=== PATIENT | female | born 1985 | race Caucasian/White ===

== ENCOUNTER 2018-12-07 23:37 | Emergency (ER) | payer MEDICAID, OTHER ==
[~2018-12-07] VITALS: Ht 157.5 cm; Wt 86.2 kg
--- OUTSIDE RECORDS SUMMARY | 2018-12-07 23:44 | XMS REPORT | Continuity of Care Document ---
Author Organization Unknown Address Unknown Allergies There is no data. Medications There is no data. Problems There is no data. Procedures There is no data. Results Test Result Range CULTURE, URINE - 11/04/18 17:05 CULTURE, URINE, ROUTINE SEE NOTE NRG Encounters ACCT No. Visit Date/Time Discharge Status Pt. Type Provider Facility Loc./Unit Complaint [id number] 11/04/2018 15:00:00 11/04/2018 23:59:59 [facility] Outpatient RONALDO MCCORMICK [facility] [id number] 11/04/2018 15:00:00 Document Registration
--- NOTE | 2018-12-08 00:30 | ED Back Pain ---
General Stated Complaint: SPINAL PAIN Source of Information: Patient History of Present Illness Date Seen by Provider: Dec 08, 2018 Time Seen by Provider: 00:30 Initial Comments 33-year-old female presenting with complaints of thoracic and lumbar spine pain that has been progressing since August. In middle of August she had slipped on ice and falling down a few steps as she was leaving work. She had tailbone pain at that time. However her thoracic and lumbar spine pain has progressively worsened. She has tried ibuprofen for it without any significant improvement. She has intermittently had some numbness into her legs. She denies any loss of bowel or bladder control. She's had no symptoms involving her arms. She has not followed up with anyone in the clinic about the back pain. Tonight the pain was worse so she came to the emergency department. She has tried soaking in Epsom salts without any relief as well. She denies any direct trauma to her back other than the fall in August. Allergies and Home Medications Allergies Coded Allergies: phenobarbital (Verified Allergy, Unknown, 12/08/18) Uncoded Allergies: ANTIHISTAMINES (Allergy, Unknown, 12/08/18) ASA (Allergy, Unknown, 12/08/18) Patient Home Medication List Home Medication List Reviewed: Yes Review of Systems Constitutional: no symptoms reported EENTM: no symptoms reported Respiratory: no symptoms reported Cardiovascular: no symptoms reported Gastrointestinal: no symptoms reported Genitourinary: No discharge, No dysuria, No incontinence Musculoskeletal: see HPI Skin: no symptoms reported Psychiatric/Neurological: No Symptoms Reported Past Mllasrw-Dzprjg-Zfyguw Hx Past Med/Social Hx: Reviewed Nursing Past Med/Soc Hx Patient Social History Recent Foreign Travel: No Contact w/Someone Who Travel: No Past Medical History Surgeries: Yes Gallbladder Physical Exam Vital Signs Vital Signs - First Documented 12/08/18 00:21 Temp 98.7 Pulse 104 Resp 16 B/P (MAP) 104/97 (99) Pulse Ox 97 O2 Delivery Room Air Capillary Refill : Height, Weight, BMI Height: '" Weight: lbs. oz. kg; BMI Method: General Appearance: No Apparent Distress, WD/WN HEENT: Normal ENT Inspection, Pharynx Normal Neck: Full Range of Motion, Normal Inspection, Non Tender, Supple Cardiovascular: Regular Rate, Rhythm, Normal Peripheral Pulses Respiratory: Chest Non Tender, Lungs Clear, Normal Breath Sounds, No Accessory Muscle Use, No Respiratory Distress Gastrointestinal: Normal Bowel Sounds, No Pulsatile Mass, Non Tender, Soft Back: No Muscle Spasm; Vertebral Tenderness (thoracic and lumbar spine tenderness) Extremity: Normal Capillary Refill, Normal Inspection, Normal Range of Motion, Non Tender, No Calf Tenderness Neurologic/Psychiatric: Alert, Oriented x3, No Motor/Sensory Deficits, Normal Mood/Affect, network lead II-XII Norm as Tested; No Abnormal Gait Skin: Normal Color, Warm/Dry Progress/Results/Core Measures Results/Orders My Orders Orders - MARY JANE PEREZ MD Ketorolac Injection (Toradol Injection) (12/08/18 01:15) Ct Thoracic/Lumbar Spine Wo (12/08/18 01:02) Dexamethasone Injection (Decadron Inject (12/08/18 02:45) Methylprednisolone Acetate Inj (Depo-Med (12/08/18 02:45) Medications Given in ED Current Medications Medications Dose Ordered Sig/Silver Route Start Time Stop Time Status Last Admin Dose Admin Dexamethasone Sodium Phosphate 4 mg ONCE ONCE IM 12/08/18 02:45 12/08/18 02:46 DC 12/08/18 02:49 4 MG Ketorolac Tromethamine 60 mg ONCE ONCE IM 12/08/18 01:15 12/08/18 01:16 DC 12/08/18 01:10 60 MG Methylprednisolone Acetate 40 mg ONCE ONCE IM 12/08/18 02:45 12/08/18 02:46 DC 12/08/18 02:49 40 MG Vital Signs/I&O 12/08/18 12/08/18 00:21 02:53 Temp 98.7 98.7 Pulse 104 104 Resp 16 16 B/P (MAP) 104/97 (99) 104/97 (99) Pulse Ox 97 97 O2 Delivery Room Air Room Air Progress Progress Note #1: Progress Note try toradol 60 mg IM for pain and obtain CT scan of T and L spine to see if there might be an occult compression fracture. Progress Note #2: Time: 02:00 Progress Note Pt reports to the nurse that she was having tingling in her toes and felt like her legs were going numb. Will see what the CT scan shows. May add in steroid injection and encourage pt to see pcp. May ultimately need MRI or referral to billing collections specialist. Progress Note #3: Progress Note Given steroid shots and asked to check with clinic for follow up and MRI or spine referral. Diagnostic Imaging Diagonstic Imaging: CT Plain Films/CT/US/NM/MRI: other (Thoracic and Lumbar spine) Comments No acute findings Reviewed: Reviewed Night Hawk Study, Reviewed by Me Departure Impression Primary Impression: Thoracic back pain Qualified Codes: M54.6 - Pain in thoracic spine; G89.29 - Other chronic pain Additional Impressions: Lumbar back pain Radiculopathy with lower extremity symptoms Disposition: HOME, SELF-CARE Condition: Stable Departure-Patient Inst. Decision time for Depature: 02:49 Referrals: NO,LOCAL PHYSICIAN (PCP) Primary Care Physician Patient Instructions: Upper Back Pain (DC), Low Back Pain (DC) Add. Discharge Instructions: Check back with clinic as they may need to refer you to billing collections specialist or have you get an MRI for continued symptoms Work/School Note: Work Release Form Date Seen in the Emergency Department: Dec 08, 2018 Return to Work: Dec 12, 2018 Restrictions: No Restrictions MARY JANE PEREZ MD Dec 08, 2018 00:30
--- NOTE | 2018-12-08 00:44 | NUR ---
Doctor Abe in to see the patient.
[2018-12-08] MEDS ORDERED: KETOROLAC 60 MG/2 ML VIAL IM ONE (01:15)
--- NOTE | 2018-12-08 01:59 | NUR ---
Pt. reported that her toes are tingling and her legs feel heavy and numb. Doctor Abe notified.
[2018-12-08] MEDS ORDERED: DEXAMETHASONE 4 MG/ML SDV (DECADRON) IM ONE (02:45)
[2018-12-08] MEDS ORDERED: methylPREDNISolone 40 MG/ML (DEPO MEDROL) VIAL IM ONE (02:45)
[2018-12-08 02:53] VITALS: BP 104/97
--- NOTE | 2018-12-08 07:04 | Diagnostic Imaging Report ---
PROCEDURE: CT thoracic and lumbar spine without contrast. TECHNIQUE: Multiple contiguous axial images were obtained through the thoracic and lumbar spine without the use of intravenous contrast. Sagittal and coronal reformations were then performed. INDICATION: Fell back pain There are no prior studies available for comparison. The reconstructed parasagittal images show slight anterior wedging of T7. I suspect this finding is long-standing in nature. The other vertebrae heights are within normal limits. There is no fracture or acute bony abnormality appreciated. The alignment of the thoracic and lumbar vertebra is also felt to be within normal limits and intervertebral spaces are fairly well-maintained. There are bilateral pars defects at L5. There does not appear to be any significant spondylolisthesis of L5 with respect to S1 and there is no high-grade central stenosis at this level. The remainder of the thoracic and lumbar spine are also unremarkable for a high-grade central stenosis. The lungs are generally clear. There is no sign of a paraspinal mass. The gallbladder is surgically absent. IMPRESSION: 1. The slight anterior wedging of T7 is most likely long-standing in nature. There is no acute bony abnormality identified. 2. If clinical concern regarding an acute abnormality persists and if further imaging is desired, then MRI would be recommended. 3. There is no high-grade central stenosis of the thoracic or lumbar spine identified. Dictated by: Dictated on workstation # [id number]
== END 2018-12-08 02:54 | disposition home or self-care (01) ==
LOC: ER FS 23:40
DX: M54.14 Radiculopathy, thoracic region (principal); M54.16 Radiculopathy, lumbar region; Z88.8 Allergy status to other drugs, medicaments and biological substances; Z98.890 Other specified postprocedural states
CPT/HCPCS: 72128; 72131

== ENCOUNTER 2018-12-29 15:46 | Emergency (ER) | payer MEDICAID ==
[~2018-12-29] VITALS: Ht 157.5 cm; Wt 88.5 kg
--- OUTSIDE RECORDS SUMMARY | 2018-12-29 15:51 | XMS REPORT | Continuity of Care Document ---
Author Organization Unknown Address Unknown Allergies There is no data. Medications There is no data. Problems There is no data. Procedures There is no data. Results Test Result Range CULTURE, URINE - 11/04/18 17:05 CULTURE, URINE, ROUTINE SEE NOTE NRG Encounters ACCT No. Visit Date/Time Discharge Status Pt. Type Provider Facility Loc./Unit Complaint [id number] 11/04/2018 15:00:00 11/04/2018 23:59:59 [facility] Outpatient RONALDO MCCORMICK [facility] IN [facility] [id number] 11/04/2018 15:00:00 Document Registration
--- NOTE | 2018-12-29 16:12 | ED Lower Extremity ---
General Chief Complaint: Lower Extremity Stated Complaint: FOOT PAIN Nursing Triage Note: STEPPED ON WALNUT IN THE FALL. Nursing Sepsis Screen: No Definite Risk Source: patient Exam Limitations: no limitations History of Present Illness Date Seen by Provider: December 29, 2018 Time Seen by Provider: 15:56 Initial Comments 33-year-old female who presents to the emergency room with complaints of left foot pain for the past 8 months after stepping on a wall. She denies reinjury. She reports that the pain was eventually had to call and work today. Denies taking any medications for pain. She reports that she an appointment with Dr. Taylor next week. Onset: other (8 month) Pain/Injury Location: left foot Modifying Factors: Worse With Movement Allergies and Home Medications Allergies Coded Allergies: phenobarbital (Verified Allergy, Unknown, 12/08/18) Uncoded Allergies: ANTIHISTAMINES (Allergy, Unknown, 12/08/18) ASA (Allergy, Unknown, 12/08/18) Patient Home Medication List Home Medication List Reviewed: Yes Review of Systems Constitutional: see HPI; No chills, No fever Musculoskeletal: see HPI, joint pain (Left foot pain) All Other Systems Reviewed Negative Unless Noted: Yes Past Ddrwwmj-Fmhuog-Uoqroe Hx Past Med/Social Hx: Reviewed Nursing Past Med/Soc Hx Patient Social History Alcohol Use: Denies Use Recreational Drug Use: No Smoking Status: Never a Smoker Recent Foreign Travel: No Contact w/Someone Who Travel: No Recent Infectious Disease Expo: No Recent Hopitalizations: No Physical Abuse: No Sexual Abuse: No Mistreated: No Seasonal Allergies Seasonal Allergies: No Past Medical History Surgeries: Yes Gallbladder, Tubal Ligation Respiratory: No Cardiac: No Neurological: No Genitourinary: No Gastrointestinal: No Musculoskeletal: No Endocrine: No HEENT: No Cancer: No Psychosocial: No Integumentary: No Blood Disorders: No Family Medical History Reviewed Nursing Family Hx Physical Exam Vital Signs Vital Signs - First Documented 12/29/18 12/29/18 15:59 16:54 Temp 97.6 Pulse 78 Resp 18 B/P (MAP) 139/103 (115) Pulse Ox 99 O2 Delivery Room Air Capillary Refill : Less Than 3 Seconds Height, Weight, BMI Height: 5'2.00" Weight: 195lbs. oz. 88.199468eq; BMI Method:Stated General Appearance: WD/WN, no apparent distress Cardiovascular: normal peripheral pulses, regular rate, rhythm, no edema, no gallop, no JVD, no murmur Respiratory: chest non-tender, lungs clear, normal breath sounds, no respiratory distress, no accessory muscle use Feet: bilateral foot normal inspection, bilateral foot normal range of motion, bilateral foot no evidence of injury; left foot pain Neurologic/Tendon: normal sensation, normal motor functions, normal tendon functions, responds to pain, no evidence tendon injury Neurologic/Psychiatric: alert, normal mood/affect, oriented x 3 Skin: normal color, warm/dry Progress/Results/Core Measures Results/Orders My Orders Orders - LORETO METZGER Foot, Left, 3 Views (12/29/18 15:55) Vital Signs/I&O 12/29/18 12/29/18 15:59 16:54 Temp 97.6 97.6 Pulse 78 76 Resp 18 18 B/P (MAP) 139/103 (115) 139/103 (115) Pulse Ox 99 O2 Delivery Room Air Blood Pressure Mean: 115 Diagnostic Imaging Diagonstic Imaging: Xray Comments NAME: KAYLA MCCULLOUGH [facility] REC#: [id number] PT STATUS: DEP ER : 1985 PHYSICIAN: LORETO METZGER ADMIT DATE: 12/29/18/ER Signed Date of Exam: 12/29/18 FOOT, LEFT, 3 VIEWS INDICATION: Foot pain. COMPARISON: None available. TECHNIQUE: Three radiographs of the left foot dated December 29, 2018. FINDINGS: No acute fracture or dislocation. No destructive osseous process. Joint spaces are well-maintained. Lisfranc joint is well aligned. Tiny plantar calcaneal enthesophyte. No suspicious radiopaque foreign body. IMPRESSION: No acute osseous abnormality with a tiny plantar calcaneal enthesophyte present. Dictated by: Dictated on workstation # [id number] Dict: 12/29/182 Trans: 12/29/181754 Interpreted by: ARTI BERMUDEZ MD Electronically signed by: ARTI BERMUDEZ MD 12/29/181754 Departure Impression Primary Impression: Left foot pain Disposition: 01 HOME, SELF-CARE Condition: Stable/Unchanged Departure-Patient Inst. Decision time for Depature: 16:29 Referrals: RONALDO MCCORMICK MD (PCP) Primary Care Physician JOSELITO TAYLOR DPM Patient Instructions: Foot Sprain (DC) Add. Discharge Instructions: Continue to use ibuprofen and Tylenol as directed by the bottle for pain relief. Ice to the sore areas at 20 minute intervals. Keep your appointment with Dr. Taylor as scheduled. Return back to the emergency room for worsening symptoms or concerns as needed. All discharge instructions reviewed with patient and/or family. Voiced understanding. Work/School Note: Work Release Form Date Seen in the Emergency Department: December 29, 2018 Return to Work: January 02, 2019 Restrictions: No Restrictions LORETO METZGER December 29, 2018 16:12
--- NOTE | 2018-12-29 16:21 | Diagnostic Imaging Report ---
INDICATION: Foot pain. COMPARISON: None available. TECHNIQUE: Three radiographs of the left foot dated December 29, 2018. FINDINGS: No acute fracture or dislocation. No destructive osseous process. Joint spaces are well-maintained. Lisfranc joint is well aligned. Tiny plantar calcaneal enthesophyte. No suspicious radiopaque foreign body. IMPRESSION: No acute osseous abnormality with a tiny plantar calcaneal enthesophyte present. Dictated by: Dictated on workstation # [id number]
[2018-12-29 16:54] VITALS: BP 139/103
== END 2018-12-29 16:55 | disposition home or self-care (01) ==
LOC: EDUNIT# 15:46 → ER 15:48
DX: M79.672 Pain in left foot (principal); Z88.8 Allergy status to other drugs, medicaments and biological substances; Z88.6 Allergy status to analgesic agent; Z98.51 Tubal ligation status
CPT/HCPCS: 73630

== ENCOUNTER 2019-02-02 19:42 | Emergency (ER) | payer MEDICAID ==
[~2019-02-02] VITALS: Ht 157.5 cm; Wt 90.7 kg
--- OUTSIDE RECORDS SUMMARY | 2019-02-02 19:47 | XMS REPORT | Continuity of Care Document ---
Author Organization Unknown Address Unknown Allergies Active Description Code Type Severity Reaction Onset Reported/Identified Relationship to Patient Clinical Status Yes ANTIHISTAMINES ANTIHISTAMINES Unknown N/A 12/08/2018 Yes ASA ASA Unknown N/A 12/08/2018 Yes phenobarbital [id number] Drug Allergy Unknown N/A 12/08/2018 Medications There is no data. Problems Date Dx Coded Attending Type Code Diagnosis Diagnosed By 12/08/2018 MARY JANE PEREZ MD, Ot M54.14 RADICULOPATHY, THORACIC REGION 12/08/2018 MARY JANE PEREZ MD, Ot M54.16 RADICULOPATHY, LUMBAR REGION 12/08/2018 MARY JANE PEREZ MD, Ot M54.6 PAIN IN THORACIC SPINE 12/08/2018 MARY JANE PEREZ MD Ot Z88.8 ALLERGY STATUS TO OTH DRUG/MEDS/BIOL SUB 12/08/2018 MARY JANE PEREZ MD Ot Z98.890 OTHER SPECIFIED POSTPROCEDURAL STATES 12/29/2018 LORETO METZGER Ot M79.672 PAIN IN LEFT FOOT 12/29/2018 LORETO METZGER Ot Z88.6 ALLERGY STATUS TO ANALGESIC AGENT STATUS 12/29/2018 LORETO METZGER Ot Z88.8 ALLERGY STATUS TO OTH DRUG/MEDS/BIOL SUB 12/29/2018 LORETO METZGER Ot Z98.51 TUBAL LIGATION STATUS Procedures There is no data. Results Test Result Range CULTURE, URINE - 11/04/18 17:05 CULTURE, URINE, ROUTINE SEE NOTE NRG Encounters ACCT No. Visit Date/Time Discharge Status Pt. Type Provider Facility Loc./Unit Complaint [id number] 01/06/2019 09:45:00 01/06/2019 23:59:59 [facility] [id number] 11/04/2018 15:00:00 Document Registration [id number] 12/29/2018 15:48:00 12/29/2018 16:55:00 DIS Emergency LORETO METZGER [facility] ER FOOT PAIN [id number] 12/07/2018 23:40:00 12/08/2018 02:54:00 DIS Emergency CHRIS SCOTT, MARY JANE Mc [facility] ER FS SPINAL PAIN
[2019-02-02] MEDS ORDERED: HALOPERIDOL 5 MG (20:20)
[2019-02-02] MEDS ORDERED: POTA CHLORIDE (20:20)
[2019-02-02] MEDS ORDERED: VITAMIN D 50000 UNIT (20:20)
[2019-02-02 20:27] LABS: BILIRUBIN,URINE NEGATIVE (NEGATIVE); CLARITY,URINE CLOUDY; COLOR,URINE OTHER; GLUCOSE, URINE (UA) NEGATIVE (NEGATIVE); KETONES,URINE NEGATIVE (NEGATIVE); LEUKOCYTE ESTERASE ,URINE NEGATIVE (NEGATIVE); NITRITE,URINE NEGATIVE (NEGATIVE); PH,URINE 7.5 (5-9); PROTEIN,URINE NEGATIVE (NEGATIVE); RBC,URINE >100 /HPF; UROBILINOGEN,URINE 0.2 MG/DL (NORMAL)
[2019-02-02 20:28] LABS: BACTERIA,URINE NEGATIVE /HPF
--- NOTE | 2019-02-02 20:51 | ED Abdominal Pain ---
General Chief Complaint: Abdominal/GI Problems Stated Complaint: NAVEL PAIN Nursing Triage Note: pt states 2 days of umbilicus pain to palpation. pt with hx of hernia surgery, tubal, and gallbladder Sepsis Screen: No Definite Risk History of Present Illness Date Seen by Provider: Feb 02, 2019 Time Seen by Provider: 19:48 This is a 33-year-old female who complains of worsening of her chronic. Umbilical pain which she has had since being diagnosed with an umbilical hernia and having it repaired a year ago. She has not had a fever or chills. The abdominal pain is periumbilical and does not radiate. It has been constant again for over a year but worse over the last week. Patient has not noticed any modifying factors like movement or eating. No vomiting or change in bowel movements or change in urination. Patient started her expected menstrual period yesterday. No fever or chills. Allergies and Home Medications Allergies Coded Allergies: phenobarbital (Verified Allergy, Unknown, 12/08/18) Uncoded Allergies: ANTIHISTAMINES (Allergy, Unknown, 12/08/18) ASA (Allergy, Unknown, 12/08/18) Patient Home Medication List Home Medication List Reviewed: Yes Review of Systems Review of Systems Constitutional: no symptoms reported EENTM: No Symptoms Reported Respiratory: No Symptoms Reported Cardiovascular: No Symptoms Reported Gastrointestinal: See HPI Genitourinary: No Symptoms Reported Musculoskeletal: no symptoms reported Skin: no symptoms reported Psychiatric/Neurological: No Symptoms Reported Endocrine: No Symptoms Reported Hematologic/Lymphatic: No Symptoms Reported Past Glkxamp-Kpdzqj-Jvcahm Hx Patient Social History Alcohol Use: Denies Use Recreational Drug Use: No Smoking Status: Never a Smoker 2nd Hand Smoke Exposure: No Recent Foreign Travel: No Contact w/Someone Who Travel: No Recent Infectious Disease Expo: No Recent Hopitalizations: No Physical Abuse: No Sexual Abuse: No Mistreated: No Fear: No Seasonal Allergies Seasonal Allergies: No Past Medical History Surgeries: Yes Abdominal, Gallbladder, Tubal Ligation Respiratory: No Cardiac: No Neurological: Yes Seizure Disorder Genitourinary: No Gastrointestinal: No Musculoskeletal: No Endocrine: No HEENT: No Cancer: No Psychosocial: No Integumentary: No Blood Disorders: No Physical Exam Vital Signs Vital Signs - First Documented 02/02/19 19:49 Temp 97.0 Pulse 88 Resp 16 B/P (MAP) 159/92 (114) Pulse Ox 97 O2 Delivery Room Air Capillary Refill : Less Than 3 Seconds Height/Weight/BMI Height: 5'2.00" Weight: 200lbs. oz. 90.206068df; BMI Method:Stated General Appearance: no apparent distress (no visible discomfort) HEENT: normal ENT inspection Neck: supple Respiratory: normal breath sounds Cardiovascular: normal peripheral pulses, regular rate, rhythm Gastrointestinal: soft, other (there is no significant tenderness, there is no appreciable hernia sac, inspection of the umbilicus and the rest of the abdomen is unremarkable with note made of small keloids from remote laparoscopy in the right upper quadrant and no inflammatory changes about the umbilicus) Back: no CVA tenderness Neurologic/Psychiatric: alert, normal mood/affect, oriented x 3; No abnormal gait Skin: warm/dry Progress/Results/Core Measures Results/Orders Lab Results Laboratory Tests Test 02/02/19 20:10 Range/Units Urine Color OTHER H Urine Clarity CLOUDY H Urine pH 7.5 5-9 Urine Specific [place] 1.015 L 1.016-1.022 Urine Protein NEGATIVE NEGATIVE Urine Glucose (UA) NEGATIVE NEGATIVE Urine Ketones NEGATIVE NEGATIVE Urine Nitrite NEGATIVE NEGATIVE Urine Bilirubin NEGATIVE NEGATIVE Urine Urobilinogen 0.2 NORMAL MG/DL Urine Leukocyte Esterase NEGATIVE NEGATIVE Urine RBC (Auto) 3+ H NEGATIVE Urine RBC >100 H /HPF Urine WBC NONE /HPF Urine Squamous Epithelial Cells 2-5 /HPF Urine Crystals NONE /LPF Urine Bacteria NEGATIVE /HPF Urine Casts NONE /LPF Urine Mucus NEGATIVE /LPF Urine Culture Indicated NO Urine Test NEGATIVE NEGATIVE My Orders Orders - MINDA SALINAS DO Ua Culture If Indicated (02/02/19 20:08) Hcg,Qualitative Urine (02/02/19 20:08) Vital Signs/I&O 02/02/19 02/02/19 19:49 21:09 Temp 97.0 Pulse 88 92 Resp 16 16 B/P (MAP) 159/92 (114) 140/90 (107) Pulse Ox 97 98 O2 Delivery Room Air Room Air Blood Pressure Mean: 114 Progress Progress Note : Progress Note Patient has chronic periumbilical pain related to an umbilical hernia which has been repaired a year ago. Her exam is benign. I cannot appreciate a hernia sac. She does not appear to have significant tenderness on my exam. She does not have tenderness in the right lower quadrant to suggest developing appendicitis and this is been going on for a week so I would expect her to have more significant symptoms if this were appendicitis. There is no vomiting. Patient is having normal bowel movements and urination. I offered CAT scan and blood testing in the emergency department although based on what she is telling me I don't think that they're necessary on an emergency basis as long as she follows up with a primary care physician promptly for reevaluation and if she returns for any new or worsening symptoms. She prefers outpatient followup. She is agreeable with a trial of acetaminophen as needed for minor pain. I offered to personally reevaluate her in 24 hours in this emergency department if she would like. Departure Impression Primary Impression: Abdominal pain Qualified Codes: R10.33 - Periumbilical pain Disposition: 01 HOME, SELF-CARE Condition: Stable Departure-Patient Inst. Referrals: RONALDO MCCORMICK MD (PCP/Family) Primary Care Physician Patient Instructions: Acute Abdomen (Belly Pain), Adult (DC) MINDA SALINAS DO Feb 02, 2019 20:51
[2019-02-02 21:09] VITALS: BP 140/90
== END 2019-02-02 21:08 | disposition home or self-care (01) ==
LOC: EDUNIT# 19:42 → ER FS 19:43
DX: R10.33 Periumbilical pain (principal); G40.909 Epilepsy, unspecified, not intractable, without status epilepticus; Z88.6 Allergy status to analgesic agent; Z88.8 Allergy status to other drugs, medicaments and biological substances; Z98.890 Other specified postprocedural states; Z98.51 Tubal ligation status
CPT/HCPCS: 81000; 84703; 99282

== ENCOUNTER 2019-07-13 21:14 | Emergency (ER) | payer MEDICAID ==
[~2019-07-13] VITALS: Ht 157 cm; Wt 91.0 kg
[~2019-07-13 21:14] MED LIST: HALOPERIDOL 5 MG; POTA CHLORIDE; VITAMIN D 50000 UNIT
[2019-07-13] MEDS ORDERED: LACTATED RINGERS 1,000 ML IV STA (21:51)
[2019-07-13] MEDS ORDERED: ONDANSETRON 4 MG/2 ML (SDV) Z0FRAN IVP ONE (22:00)
[2019-07-13 22:05] LABS: BILIRUBIN,URINE NEGATIVE (NEGATIVE); CLARITY,URINE CLEAR; COLOR,URINE YELLOW; GLUCOSE, URINE (UA) NEGATIVE (NEGATIVE); KETONES,URINE NEGATIVE (NEGATIVE); LEUKOCYTE ESTERASE ,URINE TRACE (NEGATIVE); NITRITE,URINE NEGATIVE (NEGATIVE); PROTEIN,URINE NEGATIVE (NEGATIVE); WBC,URINE 0-2 /HPF
[2019-07-13 22:06] LABS: BACTERIA,URINE MODERATE /HPF; SQUAMOUS EPITHELIAL CELL,UR 25-50 /HPF; YEAST,URINE FEW /HPF
[2019-07-13 22:14] LABS: BASOPHILS # (AUTO) 0.1 10^3/uL (0.0-0.1); BASOPHILS % (AUTO) 1 % (0-10); EOSINOPHILS # (AUTO) 0.4 10^3/uL (0.0-0.3); EOSINOPHILS % (AUTO) 4 % (0-10); HEMATOCRIT 42 % (35-52); HEMOGLOBIN 14.2 G/DL (11.5-16.0); LYMPHOCYTES # (AUTO) 2.7 X 10^3 (1.0-4.0); LYMPHOCYTES % (AUTO) 27 % (12-44); MEAN CORPUSCULAR HEMOGLOBIN 33 PG (25-34); MEAN CORPUSCULAR HGB CONC 34 G/DL (32-36); MEAN CORPUSCULAR VOLUME 97 FL (80-99); MEAN PLATELET VOLUME 10.3 FL (7.4-10.4); MONOCYTES # (AUTO) 0.9 X 10^3 (0.0-1.0); MONOCYTES % (AUTO) 9 % (0-12); NEUTROPHILS % (AUTO) 59 % (42-75); PLATELET COUNT 361 10^3/uL (130-400); RED CELL DISTRIBUTION WIDTH 12.2 % (10.0-14.5)
[2019-07-13] MEDS ORDERED: fentaNYL INJECTION 100 MCG/2 ML AMP IVP STA (22:31)
[2019-07-13 22:36] LABS: ALKALINE PHOSPHATASE 90 U/L (40-136); BILIRUBIN,TOTAL 0.2 MG/DL (0.1-1.0); BUN/CREATININE RATIO 16; CALCIUM 9.7 MG/DL (8.5-10.1); CARBON DIOXIDE 25 MMOL/L (21-32); CHLORIDE 103 MMOL/L (98-107); CREATININE SERUM 0.67 MG/DL (0.60-1.30); GFR ESTIMATED > 60; GLUCOSE 109 MG/DL (70-105); POTASSIUM 3.8 MMOL/L (3.6-5.0); SODIUM 138 MMOL/L (135-145)
[2019-07-13 22:37] LABS: ALANINE AMINOTRANSFERASE 14 U/L (0-55); ALBUMIN 4.1 GM/DL (3.2-4.5); INR 0.9 (0.8-1.4); PROTHROMBIN TIME PATIENT 12.7 SEC (12.2-14.7); TOTAL PROTEIN 7.6 GM/DL (6.4-8.2)
[2019-07-13] MEDS ORDERED: HYOSCYAMINE 0.125 MG (LEVSIN) TAB SL ONE (22:45)
--- NOTE | 2019-07-13 23:17 | ED Abdominal Pain ---
General Chief Complaint: Abdominal/GI Problems Stated Complaint: ABD PAIN Nursing Triage Note: PT COMPLAINING OF ABD PAIN SINCE WEDNESDAY EVENING WITH DIARRHEA AND NAUSEA. Sepsis Screen: No Definite Risk Source of Information: Patient Exam Limitations: No Limitations History of Present Illness Date Seen by Provider: Jul 13, 2019 Time Seen by Provider: 21:45 Initial Comments Here with report of nausea, vomiting, diarrhea and generalized abdominal cramping for 2 days. This is persisted till tonight. She has tried ondansetron and that has not helped. She in fact threw that up. She is unable to keep water down. No reported fevers. Timing/Duration: 2-3 Days, Constant Severity/Quality: Moderate, Cramping Location: Generalized Abdomen Radiation: No Radiation Activities at Onset: None Associated Symptoms: No Back Pain, No Chest Pain, No Fever/Chills; Nausea/Vomiting; No Shortness of Air; Weakness Allergies and Home Medications Allergies Coded Allergies: phenobarbital (Verified Allergy, Unknown, 12/08/18) Uncoded Allergies: ANTIHISTAMINES (Allergy, Unknown, 12/08/18) ASA (Allergy, Unknown, 12/08/18) Patient Home Medication List Home Medication List Reviewed: Yes Review of Systems Review of Systems Constitutional: see HPI, chills; No fever EENTM: No Symptoms Reported Respiratory: No Symptoms Reported Cardiovascular: No Symptoms Reported Gastrointestinal: See HPI, Abdominal Pain, Diarrhea, Nausea, Vomiting Genitourinary: No Symptoms Reported Musculoskeletal: no symptoms reported Skin: no symptoms reported Psychiatric/Neurological: No Symptoms Reported All Other Systems Reviewed Negative Unless Noted: Yes Past Cntzxhu-Eopmae-Gudqpr Hx Past Med/Social Hx: Reviewed Nursing Past Med/Soc Hx Patient Social History Alcohol Use: Denies Use Recreational Drug Use: No 2nd Hand Smoke Exposure: No Recent Foreign Travel: No Contact w/Someone Who Travel: No Recent Infectious Disease Expo: No Recent Hopitalizations: No Physical Abuse: No Sexual Abuse: No Mistreated: No Fear: No Seasonal Allergies Seasonal Allergies: No Past Medical History Surgeries: Yes Abdominal, Gallbladder, Tubal Ligation Respiratory: No Cardiac: No Neurological: Yes Seizure Disorder Genitourinary: No Gastrointestinal: No Musculoskeletal: No Endocrine: No HEENT: No Cancer: No Psychosocial: No Integumentary: No Blood Disorders: No Family Medical History Reviewed Nursing Family Hx Physical Exam Vital Signs Vital Signs - First Documented 07/13/19 21:21 Temp 36.6 Pulse 98 Resp 20 B/P (MAP) 149/100 (116) Pulse Ox 95 O2 Delivery Room Air Capillary Refill : Less Than 3 Seconds Height/Weight/BMI Height: 5'2.00" Weight: 200lbs. oz. [id number]; 36.00 BMI Method:Stated General Appearance: WD/WN, no apparent distress Neck: full range of motion, supple Respiratory: lungs clear, normal breath sounds Cardiovascular: no murmur, tachycardia Gastrointestinal: soft, abnormal bowel sounds (hyperactive); No guarding, No rebound; tenderness (diffuse mild) Extremities: non-tender, normal inspection Back: normal inspection, no CVA tenderness, no vertebral tenderness Neurologic/Psychiatric: alert, oriented x 3 Skin: normal color, warm/dry Progress/Results/Core Measures Results/Orders Lab Results Laboratory Tests Test 07/13/19 21:41 07/13/19 22:00 Range/Units Urine Color YELLOW Urine Clarity CLEAR Urine pH 7.0 5-9 Urine Specific [place] 1.015 L 1.016-1.022 Urine Protein NEGATIVE NEGATIVE Urine Glucose (UA) NEGATIVE NEGATIVE Urine Ketones NEGATIVE NEGATIVE Urine Nitrite NEGATIVE NEGATIVE Urine Bilirubin NEGATIVE NEGATIVE Urine Urobilinogen 0.2 < = 1.0 MG/DL Urine Leukocyte Esterase TRACE H NEGATIVE Urine RBC (Auto) NEGATIVE NEGATIVE Urine RBC NONE /HPF Urine WBC 0-2 /HPF Urine Squamous Epithelial Cells 25-50 H /HPF Urine Crystals NONE /LPF Urine Bacteria MODERATE H /HPF Urine Casts NONE /LPF Urine Mucus NEGATIVE /LPF Urine Yeast FEW H /HPF Urine Culture Indicated NO White Blood Count 10.0 4.3-11.0 10^3/uL Red Blood Count 4.29 L 4.35-5.85 10^6/uL Hemoglobin 14.2 11.5-16.0 G/DL Hematocrit 42 35-52 % Mean Corpuscular Volume 97 80-99 FL Mean Corpuscular Hemoglobin 33 25-34 PG Mean Corpuscular Hemoglobin Concent 34 32-36 G/DL Red Cell Distribution Width 12.2 10.0-14.5 % Platelet Count 361 130-400 10^3/uL Mean Platelet Volume 10.3 7.4-10.4 FL Neutrophils (%) (Auto) 59 42-75 % Lymphocytes (%) (Auto) 27 12-44 % Monocytes (%) (Auto) 9 0-12 % Eosinophils (%) (Auto) 4 0-10 % Basophils (%) (Auto) 1 0-10 % Neutrophils # (Auto) 6.0 1.8-7.8 X 10^3 Lymphocytes # (Auto) 2.7 1.0-4.0 X 10^3 Monocytes # (Auto) 0.9 0.0-1.0 X 10^3 Eosinophils # (Auto) 0.4 H 0.0-0.3 10^3/uL Basophils # (Auto) 0.1 0.0-0.1 10^3/uL Prothrombin Time 12.7 12.2-14.7 SEC INR Comment 0.9 0.8-1.4 Activated Partial Thromboplast Time 27 24-35 SEC Sodium Level 138 135-145 MMOL/L Potassium Level 3.8 3.6-5.0 MMOL/L Chloride Level 103 98-107 MMOL/L Carbon Dioxide Level 25 21-32 MMOL/L Anion Gap 10 5-14 MMOL/L Blood Urea Nitrogen 11 7-18 MG/DL Creatinine 0.67 0.60-1.30 MG/DL Estimat Glomerular Filtration Rate > 60 BUN/Creatinine Ratio 16 Glucose Level 109 H 70-105 MG/DL Calcium Level 9.7 8.5-10.1 MG/DL Corrected Calcium 9.6 8.5-10.1 MG/DL Magnesium Level 2.0 1.6-2.4 MG/DL Total Bilirubin 0.2 0.1-1.0 MG/DL Aspartate Amino Transf (AST/SGOT) 15 5-34 U/L Alanine Aminotransferase (ALT/SGPT) 14 0-55 U/L Alkaline Phosphatase 90 40-136 U/L Total Protein 7.6 6.4-8.2 GM/DL Albumin 4.1 3.2-4.5 GM/DL My Orders Orders - SUDHEER BROWN MD Ua Culture If Indicated (07/13/19 21:36) Ondansetron Injection (Zofran Injectio (07/13/19 22:00) Ed Iv/Invasive Line Start (07/13/19 21:51) Cbc With Automated Diff (07/13/19 21:51) Comprehensive Metabolic Panel (07/13/19 21:51) Magnesium (07/13/19 21:51) Lactated Ringers (Lr 1000 Ml Iv Solution (07/13/19 21:51) Protime With Inr (07/13/19 22:12) Partial Thromboplastin Time (07/13/19 22:12) Hyoscyamine Sl Tablet (Levsin Sl Tablet) (07/13/19 22:45) Fentanyl Injection (Sublimaze Injection (07/13/19 22:31) Medications Given in ED Current Medications Medications Dose Ordered Sig/Silver Route Start Time Stop Time Status Last Admin Dose Admin Hyoscyamine Sulfate 0.125 mg ONCE ONCE SL 07/13/19 22:45 07/13/19 22:46 DC 07/13/19 22:43 0.125 MG Ondansetron HCl 4 mg ONCE ONCE IVP 07/13/19 22:00 07/13/19 22:01 DC 07/13/19 22:04 4 MG Vital Signs/I&O 07/13/19 21:21 Temp 36.6 Pulse 98 Resp 20 B/P (MAP) 149/100 (116) Pulse Ox 95 O2 Delivery Room Air Blood Pressure Mean: 116 POS Progress Progress Note : Progress Note Seen and evaluated. IV, labs, UA, LR 1 L bolus, Zofran 4 mg IV ordered. Monitor patient. 2245: Levsin 0.125 mg by mouth and fentanyl 50 g IV ordered. Overall improved but still has abdominal cramping so we'll try that. 2315: Overall completely resolves and feels much better. She has ambulated to the bathroom. We will continue outpatient Levsin. Discharged home with return precautions. Patient verbalize understanding of instructions and agreement with plan. Departure Impression Primary Impression: Diarrhea Qualified Codes: R19.7 - Diarrhea, unspecified Additional Impressions: Nausea and vomiting Qualified Codes: R11.2 - Nausea with vomiting, unspecified Generalized abdominal pain Disposition: HOME, SELF-CARE Condition: Improved Departure-Patient Inst. Decision time for Depature: 23:17 Referrals: RONALDO MCCORMICK MD (PCP/Family) Primary Care Physician Patient Instructions: Acute Abdomen (Belly Pain), Adult (DC), Nausea and Vomiting, Adult (DC), Diarrhea and Traveler's Diarrhea, Adult (DC) Add. Discharge Instructions: All discharge instructions reviewed with patient and/or family. Voiced understanding. Clear liquid diet for the next 24 hours and then advance as tolerated. Follow-up with your Dr. in a few days for recheck. Return for worse pain, persistent vomiting, blood in your vomit or stool, weakness, breathing problems or other concerns as needed. Take medications as directed. Scripts Hyoscyamine Sulfate (Levsin-Sl) 0.125 Mg Tab.subl 0.125 MG SL Q4H, #10 TAB 0 Refills Prov: SUDHEER BROWN MD 07/13/19 SUDHEER BROWN MD Jul 13, 2019 23:17 POS
[2019-07-13] MEDS ORDERED: HYOS0.1283 SL (23:19)
[2019-07-13] MEDS ORDERED: HYDROcodone/APAP 5 MG/325 MG (LORTAB) TAB PO ONE (23:30)
[2019-07-13 23:42] VITALS: BP 121/76
== END 2019-07-13 23:42 | disposition home or self-care (01) ==
LOC: EDUNIT# 21:14 → ER FS 21:15
DX: R19.7 Diarrhea, unspecified (principal); R11.2 Nausea with vomiting, unspecified; R10.84 Generalized abdominal pain; G40.909 Epilepsy, unspecified, not intractable, without status epilepticus; Z88.6 Allergy status to analgesic agent; Z88.8 Allergy status to other drugs, medicaments and biological substances; Z98.51 Tubal ligation status
CPT/HCPCS: 36415; 80053; 81000; 83735; 85025; 85610; 85730; 96361; 96374; 96375

== ENCOUNTER 2019-09-19 04:49 | Emergency (ER) | payer MEDICAID ==
[~2019-09-19] VITALS: Ht 157.5 cm; Wt 90.7 kg
[~2019-09-19 04:49] MED LIST changes: +HYOS0.1283 SL
[2019-09-19] MEDS ORDERED: ONDANSETRON 4 MG (ZOFRAN) ORAL DISSOLVE TAB PO STA (05:25)
[2019-09-19] MEDS ORDERED: HYOS0.1283 SL (05:30)
[2019-09-19] MEDS ORDERED: ONDA4TAB11 PO (05:30)
--- NOTE | 2019-09-19 05:30 | ED GI ---
General Chief Complaint: Abdominal/GI Problems Stated Complaint: N/V/D Nursing Triage Note: PT AMBULATE TO ROOM FS02 WITH C/O ABD PAIN, N/V/D STARTING AT APPROX 0000. Sepsis Screen: No Definite Risk Source of Information: Patient Exam Limitations: No Limitations History of Present Illness Date Seen by Provider: Sep 19, 2019 Time Seen by Provider: 05:20 Initial Comments Presents w onset of n/v/d at midnight last night. continued several times throughout the night. No known sick contacts or suspicion of food poisoning. Generalized abdominal cramping. Allergies and Home Medications Allergies Coded Allergies: phenobarbital (Verified Allergy, Unknown, 12/08/18) Uncoded Allergies: ANTIHISTAMINES (Allergy, Unknown, 12/08/18) ASA (Allergy, Unknown, 12/08/18) Home Medications Hyoscyamine Sulfate 0.125 Mg Tab.subl, 0.125 MG SL Q4H Prescribed by: SUDHEER BROWN on 07/13/19 5327 Patient Home Medication List Home Medication List Reviewed: Yes Review of Systems Review of Systems Constitutional: see HPI, malaise; No weakness Respiratory: Denies Cough, Denies Shortness of Air Cardiovascular: Denies Chest Pain, Denies Syncope Gastrointestinal: See HPI, Abdominal Pain, Diarrhea, Nausea, Vomiting Musculoskeletal: No back pain, No joint pain Skin: No change in color, No rash Past Ohckzli-Ijsvop-Gbxgkz Hx Past Med/Social Hx: Reviewed Nursing Past Med/Soc Hx Patient Social History Alcohol Use: Denies Use Recreational Drug Use: No Smoking Status: Never a Smoker 2nd Hand Smoke Exposure: No Recent Foreign Travel: No Contact w/Someone Who Travel: No Recent Infectious Disease Expo: No Recent Hopitalizations: No Physical Abuse: No Sexual Abuse: No Mistreated: No Fear: No Seasonal Allergies Seasonal Allergies: No Past Medical History Surgeries: Yes Abdominal, Gallbladder, Tubal Ligation Respiratory: No Cardiac: No Neurological: Yes Seizure Disorder Genitourinary: No Gastrointestinal: No Musculoskeletal: No Endocrine: No HEENT: No Cancer: No Psychosocial: No Integumentary: No Blood Disorders: No Physical Exam Vital Signs Vital Signs - First Documented 09/19/19 04:59 Temp 36.7 Pulse 108 Resp 17 B/P (MAP) 126/88 (101) O2 Delivery Room Air Capillary Refill : Less Than 3 Seconds Height/Weight/BMI Height: 5'2.00" Weight: 200lbs. oz. 90.397198gj; 36.00 BMI Method:Stated General Appearance: WD/WN, no apparent distress HEENT: normal ENT inspection Neck: non-tender, supple Respiratory: lungs clear, normal breath sounds Cardiovascular: regular rate, rhythm, no edema Gastrointestinal: non tender, soft; No guarding Back: normal inspection, no CVA tenderness Progress/Results/Core Measures Results/Orders My Orders Orders - ROULICESSTINECLEMENT DO Ondansetron Oral Dissolve Tab (Zofran (09/19/19 05:25) Vital Signs/I&O 09/19/19 04:59 Temp 36.7 Pulse 108 Resp 17 B/P (MAP) 126/88 (101) O2 Delivery Room Air Blood Pressure Mean: 101 Departure Impression Primary Impression: Gastroenteritis Disposition: 01 HOME, SELF-CARE Condition: Stable Departure-Patient Inst. Referrals: RONALDO MCCORMICK MD (PCP/Family) Primary Care Physician Patient Instructions: Viral Gastroenteritis, Adult (DC) Scripts Ondansetron (Ondansetron Odt) 4 Mg Tab.rapdis 4 MG PO Q6H for Nausea/Vomiting, #10 TAB Prov: ROVENSTINECLEMENT L DO 09/19/19 Hyoscyamine Sulfate (Levsin-Sl) 0.125 Mg Tab.subl 0.125 MG SL Q8H for Cramps, #10 TAB Prov: ROVENSTINECLEMENT DO 09/19/19 JEANNESTINEANTWANCLEMENT L DO Sep 19, 2019 05:30
[2019-09-19 05:36] VITALS: BP 134/76
== END 2019-09-19 05:36 | disposition home or self-care (01) ==
LOC: EDUNIT# 04:49 → ER FS 04:54
DX: K52.9 Noninfective gastroenteritis and colitis, unspecified (principal); Z88.6 Allergy status to analgesic agent; Z88.8 Allergy status to other drugs, medicaments and biological substances; Z98.51 Tubal ligation status
CPT/HCPCS: 99283

== ENCOUNTER 2019-10-08 13:29 | Emergency (ER) | payer MEDICAID ==
[~2019-10-08] VITALS: Ht 157 cm; Wt 94.0 kg
[~2019-10-08 13:29] MED LIST changes: +ONDA4TAB11 PO
--- NOTE | 2019-10-08 13:31 | ED General ---
General Stated Complaint: COUGESTION,COUGH,SORE THROAT History of Present Illness Date Seen by Provider: Oct 08, 2019 Time Seen by Provider: 13:31 Initial Comments Patient is a 34-year-old female who comes to the emergency department. She describes having sudden onset of body aches, fever, chills, cough, upper airway congestion. Her symptoms started last evening. She has known positive influenza B exposure as 2 of her children were recently tested and confirmed positive. No nausea or vomiting. Allergies and Home Medications Allergies Coded Allergies: phenobarbital (Verified Allergy, Unknown, 12/08/18) Uncoded Allergies: ANTIHISTAMINES (Allergy, Unknown, 12/08/18) ASA (Allergy, Unknown, 12/08/18) Home Medications Baloxavir Marboxil 40 Mg Tablet, 80 MG PO ONCE Prescribed by: DEANDRE KEVIN on 10/08/19 1337 Benzonatate 100 Mg Capsule, 200 MG PO TID PRN for COUGH Prescribed by: DEANDRE KEVIN on 10/08/19 1340 Hyoscyamine Sulfate 0.125 Mg Tab.subl, 0.125 MG SL Q4H Prescribed by: SUDHEER BROWN on 07/13/19 2319 Hyoscyamine Sulfate 0.125 Mg Tab.subl, 0.125 MG SL Q8H Prescribed by: CLEMENT HOPKINS on 09/19/19 0530 Ibuprofen 800 Mg Tablet, 800 MG PO Q8H PRN for PAIN-MILD Prescribed by: DEANDRE KEVIN on 10/08/19 1340 Ondansetron 4 Mg Tab.rapdis, 4 MG PO Q6H Prescribed by: CLEMENT HOPKINS on 09/19/19 0530 Oseltamivir Phosphate 75 Mg Cap, 75 MG PO BID Prescribed by: DEANDRE KEVIN on 10/08/19 1337 Patient Home Medication List Home Medication List Reviewed: Yes Review of Systems Review of Systems Constitutional: see HPI EENTM: see HPI Respiratory: see HPI Genitourinary: no symptoms reported Musculoskeletal: see HPI Skin: no symptoms reported Physical Exam Vital Signs Vital Signs - First Documented 10/08/19 13:39 Temp 36.0 Pulse 120 Resp 18 B/P (MAP) 153/95 (114) Pulse Ox 97 O2 Delivery Room Air Capillary Refill : Height, Weight, BMI Height: '" Weight: lbs. oz. kg; BMI Method: General Appearance: No Apparent Distress, WD/WN HEENT: PERRL/EOMI, TMs Normal, Normal ENT Inspection, Pharynx Normal, Other (nares congested and with clear rhinorrhea) Neck: Full Range of Motion, Supple Respiratory: Lungs Clear Cardiovascular: Regular Rate, Rhythm Extremity: Normal Capillary Refill Skin: Normal Color, Warm/Dry Progress/Results/Core Measures Suspected Sepsis SIRS Temperature: Pulse: Respiratory Rate: Blood Pressure / Mean: Results/Orders Vital Signs/I&O 10/08/19 13:39 Temp 36.0 Pulse 120 Resp 18 B/P (MAP) 153/95 (114) Pulse Ox 97 O2 Delivery Room Air Capillary Refill : Progress Note : Time: 13:46 Progress Note Patient is a 34-year-old female with known exposure to the flu who presents with flu-like symptoms. In the ER, the patient is nontoxic appearing. Her lungs are clear. Posterior oropharynx is clear. She does have some upper airway c ongestion. No increased work of breathing. No fever. Given her known exposures in the house, no testing is done. Patient is given empiric treatment. She is prescribed Xofluza. Along with some medication for symptom relief, Motrin and Tessalon Perles. Patient is also given a ancillary prescription for Tamiflu as it is unclear if her insurance will cover the Xofluza. If not covered, she will take tamiflu. Other ill family members in her house have also been prescribed tamiflu. I recommended she follow up with primary care doctor. Come back to the ER as needed. Departure Impression Primary Impression: Influenza Disposition: 01 HOME, SELF-CARE Condition: Stable Departure-Patient Inst. Scripts Benzonatate (TESSALON PERLES) 100 Mg Capsule 200 MG PO TID PRN for COUGH, #21 CAP Prov: DEANDRE KEVIN DO 10/08/19 Ibuprofen (Ibuprofen) 800 Mg Tablet 800 MG PO Q8H PRN for PAIN-MILD for 7 Days, #21 TAB Prov: DEANDRE KEVIN DO 10/08/19 Oseltamivir Phosphate (Tamiflu) 75 Mg Cap 75 MG PO BID for 5 Days, #10 CAP Prov: DEANDRE KEVIN DO 10/08/19 Baloxavir Marboxil (Xofluza) 40 Mg Tablet 80 MG PO ONCE for 1 Day, #2 TAB Prov: DEANDRE KEVIN DO 10/08/19 DEANDRE KEVIN DO Oct 08, 2019 13:31
[2019-10-08] MEDS ORDERED: OSLT75C PO (13:37)
[2019-10-08] MEDS ORDERED: BALO40TA PO (13:37)
[2019-10-08] MEDS ORDERED: BENZ100C18 PO (13:40)
[2019-10-08] MEDS ORDERED: IBUP-1780 PO (13:40)
[2019-10-08 13:44] VITALS: BP 153/95
== END 2019-10-08 13:44 | disposition home or self-care (01) ==
LOC: EDUNIT# 13:29 → ER FS 13:31
DX: J11.1 Influenza due to unidentified influenza virus with other respiratory manifestations (principal); Z88.8 Allergy status to other drugs, medicaments and biological substances; Z88.6 Allergy status to analgesic agent
CPT/HCPCS: 99282

== ENCOUNTER 2019-11-19 20:36 | Emergency (ER) | payer MEDICAID ==
[~2019-11-19] VITALS: Ht 157 cm; Wt 95.0 kg
[~2019-11-19 20:36] MED LIST changes: +BALO40TA PO; +BENZ100C18 PO; +IBUP-1780 PO; +OSLT75C PO
--- OUTSIDE RECORDS SUMMARY | 2019-11-19 20:43 | XMS REPORT | Continuity of Care Document ---
Author Organization Unknown Address Unknown Phone Unavailable Allergies Active Description Code Type Severity Reaction Onset Reported/Identified Relationship to Patient Clinical Status Yes ANTIHISTAMINES ANTIHISTAMINES Unknown N/A 12/08/2018 Yes ASA ASA Unknown N/A 12/08/2018 Yes phenobarbital [id number] Vlad g Allergy Unknown N/A 12/08/2018 Medications There is no data. Problems Date Dx Coded Attending Type Code Diagnosis Diagnosed By 12/08/2018 MARY JANE PEREZ MD, Ot M54.1 4 RADICULOPATHY, THORACIC REGION 12/08/2018 MARY JANE PEREZ MD, Ot M54.1 6 RADICULOPATHY, LUMBAR REGION 12/08/2018 MARY JANE PEREZ MD, Ot M54.6 PAIN IN THORACIC SPINE 12/08/2018 MARY JANE PEREZ MD Ot Z88.8 ALLERGY STATUS TO OTH DRUG/MEDS/BIOL SUB 12/08/2018 MARY JANE PEREZ MD Ot Z98.8 90 OTHER SPECIFIED POSTPROCEDURAL STATES 12/29/2018 LORETO METZGER Ot M79.672 PAIN IN LEFT FOOT 12/29/2018 LORETO METZGER Ot Z88.6 ALLERGY STATUS TO ANALGESIC AGENT STATUS 12/29/2018 LORETO METZGER Ot Z88.8 ALLERGY STATUS TO OTH DRUG/MEDS/BIOL SUB 12/29/2018 LORETO METZGER Ot Z98.51 TUBAL LIGATION STATUS 02/02/2019 MINDA SALINAS DO T Ot G40.909 EPILEPSY, UNSP, NOT INTRACTABLE, WITHOUT 02/02/2019 MINDA SALINAS DO T Ot R10. 33 PERIUMBILICAL PAIN 02/02/2019 MINDA SALINAS DO T Ot Z88. 6 ALLERGY STATUS TO ANALGESIC AGENT STATUS 02/02/2019 MINDA SALINAS DO T Ot Z88. 8 ALLERGY STATUS TO OTH DRUG/MEDS/BIOL SUB 02/02/2019 MINDA SALINAS DO T Ot Z98. 51 TUBAL LIGATION STATUS 02/02/2019 RITA DO, MINDA T Ot Z98.890 OTHER SPECIFIED POSTPROCEDURAL STATES 02/06/2019 RITA CHA, MINDA T Ot G40.909 EPILEPSY, UNSP, NOT INTRACTABLE, WITHOUT 02/06/2019 RITA CHA, MINDA T Ot R10. 33 PERIUMBILICAL PAIN 02/06/2019 RITA CHA, MINDA T Ot Z88. 6 ALLERGY STATUS TO ANALGESIC AGENT STATUS 02/06/2019 RITA CHA, MINDA T Ot Z88. 8 ALLERGY STATUS TO OTH DRUG/MEDS/BIOL SUB 02/06/2019 RITA CHA, MINDA T Ot Z98. 51 TUBAL LIGATION STATUS 02/06/2019 RITA CHA, MINDA T Ot Z98.890 OTHER SPECIFIED POSTPROCEDURAL STATES 07/13/2019 SUDHEER BROWN MD Ot G40.909 EPILEPSY, UNSP, NOT INTRACTABLE, WITHOUT 07/13/2019 SUDHEER BROWN MD Ot R10.84 GENERALIZED ABDOMINAL PAIN 07/13/2019 SUDHEER BROWN MD Ot R11.2 NAUSEA WITH VOMITING, UNSPECIFIED 07/13/2019 SUDHEER BROWN MD Ot R19.7 DIARRHEA, UNSPECIFIED 07/13/2019 SUDHEER BROWN MD Ot Z88.6 ALLERGY STATUS TO ANALGESIC AGENT STATUS 07/13/2019 SUDHEER BROWN MD Ot Z88.8 ALLERGY STATUS TO OTH DRUG/MEDS/BIOL SUB 07/13/2019 SUDHEER BROWN MD Ot Z98.51 TUBAL LIGATION STATUS 09/19/2019 ROVENSTINE CLEMENT CHA Ot K52.9 NONINFECTIVE GASTROENTERITIS AND COLITIS 09/19/2019 ROVENSTINE DOCLEMENT Ot R11.2 NAUSEA WITH VOMITING, UNSPECIFIED 09/19/2019 ROVENSTINE DOCLEMENT Ot Z88.6 ALLERGY STATUS TO ANALGESIC AGENT STATUS 09/19/2019 ROVENSTINE CLEMENT CHA Ot Z88.8 ALLERGY STATUS TO OTH DRUG/MEDS/BIOL SUB 10/08/2019 DEANDRE KEVIN DO Ot J11 .1 FLU DUE TO UNIDENTIFIED INFLUENZA VIRUS 10/08/2019 DEANDRE KEVIN DO Ot R05 COUGH 10/08/2019 DEANDRE KEVIN DO Ot Z88 .6 ALLERGY STATUS TO ANALGESIC AGENT STATUS 10/08/2019 DEANDRE KEVIN DO Ot Z88 .8 ALLERGY STATUS TO OTH DRUG/MEDS/BIOL SUB 10/13/2019 DEANDRE KEVIN DO Ot J11 .1 FLU DUE TO UNIDENTIFIED INFLUENZA VIRUS 10/13/2019 DEANDRE KEVIN DO Ot R05 COUGH 10/13/2019 DEANDRE KEVIN DO Ot Z88 .6 ALLERGY STATUS TO ANALGESIC AGENT STATUS 10/13/2019 DEANDRE KEVIN DO Ot Z88 .8 ALLERGY STATUS TO OTH DRUG/MEDS/BIOL SUB Procedures There is no data. Results Test Result Range CULTURE, URINE - 11/04/18 17:05 CULTURE, URINE, ROUTINE SEE NOTE NRG Urine beta human chorionic gonadotropin (hCG) measurement - 02/02/19 20:10 Urine beta human chorionic gonadotropin (hCG) measurem ent NEGATIVE NEGATIVE Complete urinalysis with reflex to cultu re - 02/02/19 20:10 Urine color determination OTHER NRG Urine clarity determination CLOUDY NR G Urine pH measurement by test strip 7.5 5-9 Specific gravity of urine by test strip 1.015 1.016-1.022 Urine protein assay by test strip, semi-quantitative NEGATIVE NEGATIVE Urine glucose detection by automated test strip NE GATIVE NEGATIVE Erythrocytes detection in urine sediment by light micr oscopy 3+ NEGATIVE Urine ketones detection by automated test strip NE GATIVE NEGATIVE Urine nitrite detection by test strip NEGATIVE NEGATIVE Urine total bilirubin detection by test strip NEGA TIVE NEGATIVE Urine urobilinogen measurement by automated test strip (mass/volume) 0.2 mg/dL NORMAL Urine leukocyte esterase detection by dipstick NEG ATIVE NEGATIVE Automated urine sediment erythrocyte cou nt by microscopy (number/high power field) > [HPF] NRG Automated urine sediment leukocyte count by microscopy (number/high power field) NONE NRG Bacteria detection in urine sediment by light microsco py NEGATIVE NRG Squamous epithelial cells detection in u rine sediment by light microscopy 2-5 NRG Crystals detection in urine sediment by light microsco py NONE NRG Casts detection in urine sediment by light microscopy NONE NRG Mucus detection in urine sediment by light microscopy NEGATIVE NRG Complete urinalysis with reflex to culture NO NRG SUREPATH PAP RFX HPV mRNA E6/E7 - 16:31 CLINICAL INFORMATION: NRG LMP: NRG PREV. PAP: NRG PREV. BX: NRG SOURCE: Cervix NRG STATEMENT OF ADEQUACY: NRG INTERPRETATION/RESULT: NRG VOLUNTEER SERVICES SPECIALIST: NRG COMMENT NRG Complete urinalysis with reflex to cultu re - 07/13/19 21:41 Urine color determination YELLOW NRG Urine clarity determination CLEAR NR G Urine pH measurement by test strip 7.0 5-9 Specific gravity of urine by test strip 1.015 1.016-1.022 Urine protein assay by test strip, semi-quantitative NEGATIVE NEGATIVE Urine glucose detection by automated test strip NE GATIVE NEGATIVE Erythrocytes detection in urine sediment by light micr oscopy NEGATIVE NEGATIVE Urine ketones detection by automated test strip NE GATIVE NEGATIVE Urine nitrite detection by test strip NEGATIVE NEGATIVE Urine total bilirubin detection by test strip NEGA TIVE NEGATIVE Urine urobilinogen measurement by automated test strip (mass/volume) 0.2 mg/dL < = 1.0 Urine leukocyte esterase detection by dipstick TRA CE NEGATIVE Automated urine sediment erythrocyte cou nt by microscopy (number/high power field) NONE NRG Automated urine sediment leukocyte count by microscopy (number/high power field) [HPF] NRG Bacteria detection in urine sediment by light microsco py MODERATE NRG Squamous epithelial cells detection in u rine sediment by light microscopy 25-50 NRG Crystals detection in urine sediment by light microsco py NONE NRG Casts detection in urine sediment by light microscopy NONE NRG Mucus detection in urine sediment by light microscopy NEGATIVE NRG Complete urinalysis with reflex to culture NO NRG Yeast detection in urine sediment by light microscopy FEW NRG Comprehensive metabolic panel - 07/13/19 22:00 Serum or plasma sodium measurement (moles/volume) 138 mmol/L 135-145 Serum or plasma potassium measurement (moles/volume) 3.8 mmol/L 3.6-5.0 Serum or plasma chloride measurement (moles/volume) 103 mmol/L 98-107 Carbon dioxide 25 mmol/L 21-32 Serum or plasma anion gap determination (moles/volume) 10 mmol/L 5-14 Serum or plasma urea nitrogen measurement (mass/volume ) 11 mg/dL 7-18 Serum or plasma creatinine measurement (mass/volume) 0.67 mg/dL 0.60-1.30 Serum or plasma urea nitrogen/creatinine mass ratio 16 NRG Serum or plasma creatinine measurement w ith calculation of estimated glomerular filtration rate > NRG Serum or plasma glucose measurement (mass/volume) 109 mg/dL 70-105 Serum or plasma calcium measurement (mass/volume) 9.7 mg/dL 8.5-10.1 Serum or plasma total bilirubin measurement (mass/volu me) 0.2 mg/dL 0.1-1.0 Serum or plasma alkaline phosphatase aj surement (enzymatic activity/volume) 90 U/L 40-136 Serum or plasma aspartate aminotransfera se measurement (enzymatic activity/volume) 15 U/L 5-34 Serum or plasma alanine aminotransferase measurement (enzymatic activity/volume) 14 U/L 0-55 Serum or plasma protein measurement (mass/volume) 7.6 g/dL 6.4-8.2 Serum or plasma albumin measurement (mass/volume) 4.1 g/dL 3.2-4.5 CALCIUM CORRECTED 9.6 mg/dL 8.5-10.1 Magnesium - 07/13/19 22:00 Magnesium 2.0 mg/dL 1.6-2.4 Complete blood count (CBC) with automate d white blood cell (WBC) differential - 07/13/19 22:00 Blood leukocytes automated count (number/volume) 10.0 10*3/uL 4.3-11.0 Blood erythrocytes automated count (number/volume) 4.29 10*6/uL 4.35-5.85 Venous blood hemoglobin measurement (mass/volume) 14.2 g/dL 11.5-16.0 Blood hematocrit (volume fraction) 42 % 35-52 Automated erythrocyte mean corpuscular volume 97 [ foz_us] 80-99 Automated erythrocyte mean corpuscular h emoglobin (mass per erythrocyte) 33 pg 25-34 Automated erythrocyte mean corpuscular h emoglobin concentration measurement (mass/volume) 34 g/dL 32-36 Automated erythrocyte distribution width ratio 12. 2 % 10.0- 14.5 Automated blood platelet count (count/volume) 361 10*3/uL 130-400 Automated blood platelet mean volume measurement 10.3 [foz_us] 7.4-10.4 Automated blood neutrophils/100 leukocytes 59 % 42-75 Automated blood lymphocytes/100 leukocytes 27 % 12-44 Blood monocytes/100 leukocytes 9 % 0-12 Automated blood eosinophils/100 leukocytes 4 % 0-10 Automated blood basophils/100 leukocytes 1 % 0-10 Blood neutrophils automated count (number/volume) 6.0 10*3 1.8-7.8 Blood lymphocytes automated count (number/volume) 2.7 10*3 1.0-4.0 Blood monocytes automated count (number/volume) 0. 9 10*3 0.0-1.0 Automated eosinophil count 0.4 10*3/uL 0 .0-0.3 Automated blood basophil count (count/volume) 0.1 10*3/uL 0.0-0.1 PT panel in platelet poor plasma by coag ulation assay - 07/13/19 22:00 Prothrombin time (PT) in platelet poor plasma by coagu lation assay 12.7 s 12.2-14.7 INR in platelet poor plasma or blood by coagulation as say 0.9 0.8-1.4 Activated partial thromboplastin time (a PTT) in platelet poor plasma bycoagulation assay - 07/13/19 22:00 Activated partial thromboplastin time (a PTT) in platelet poor plasma bycoagulation assay 27 s 24-35 CBC - 09/25/19 15:42 WHITE BLOOD CELL COUNT 10.9 Thousand/uL 3.8-10.8 RED BLOOD CELL COUNT 4.25 Million/uL 3.8 0-5.10 HEMOGLOBIN 13.9 g/dL 11.7-15.5 HEMATOCRIT 40.2 % 35.0-45.0 MCV 94.6 fL 80.0-100.0 MCH 32.7 pg 27.0-33.0 MCHC 34.6 g/dL 32.0-36.0 RDW 11.9 % 11.0-15.0 PLATELET COUNT 377 Thousand/uL 140-400 MPV 11.0 fL 7.5-12.5 ABSOLUTE NEUTROPHILS 6976 cells/uL 1500- 7800 ABSOLUTE LYMPHOCYTES 2616 cells/uL 850-3 900 ABSOLUTE MONOCYTES 818 cells/uL 200-950 ABSOLUTE EOSINOPHILS 436 cells/uL 15-500 ABSOLUTE BASOPHILS 55 cells/uL 0-200 NEUTROPHILS 64 % NRG LYMPHOCYTES 24.0 % NRG MONOCYTES 7.5 % NRG EOSINOPHILS 4.0 % NRG BASOPHILS 0.5 % NRG VITAMIN D, 25-H - 09/25/19 15:42 VITAMIN D,25-OH,TOTAL,IA 29 ng/mL 30-10 0 Encounters ACCT No. Visit Date/Time Discharge Status Pt. Type Provider Facility Loc./Unit Complaint [id number] 09/26/2019 15:45:00 09/26/2019 23:59:5 9 [facility] Outpatient RONALDO MCCORMICK [facility] [id number] 09/25/2019 15:30:00 Document Registration [id number] 05/11/2019 15:00:00 Document Registration [id number] 11/04/2018 15:00:00 Document Registration [id number] 10/08/2019 13:31:00 13:44:00 DIS Emergency KEVIN DEANDRE CHA [facility] ER FS COUGESTION,COUGH,SORE T HROAT [id number] 09/19/2019 04:54:00 05:36:00 DIS Emergency CLEMENT HOPKINS DO [facility] ER FS N/V/D [id number] 07/13/2019 21:15:00 23:42:00 DIS Emergency SUDHEER BROWN MD [facility] ER FS ABD PAIN [id number] 02/02/2019 19:43:00 21:08:00 DIS Emergency MINDA SALINAS DO [facility] ER FS NAVEL PAIN [id number] 12/29/2018 15:48:00 16:55:00 DIS Emergency LORETO METZGER [facility] ER FOOT PAIN [id number] 12/07/2018 23:40:00 02:54:00 DIS Emergency MARY JANE PEREZ MD [facility] ER FS SPINAL PAIN
--- NOTE | 2019-11-19 21:09 | ED Cough/URI ---
General Chief Complaint: Cough/Cold/Flu Symptoms Stated Complaint: COUGHH/SOB Nursing Triage Note: Pt states she started with a cough today and feels like she is having a difficult time breathing. Pt denies any fever. Sepsis Screen: No Definite Risk Source: patient Exam Limitations: no limitations History of Present Illness Date Seen by Provider: Nov 19, 2019 Time Seen by Provider: 20:52 Initial Comments 34-year-old female presents to the emergency room walking in on her own accord. Patient states that she's been having a cough since noon today. This precedes her emergency room admission by about 9 hours. She states that the cough is nonproductive and although she says that she has difficulty catching her breath has no evidence of respiratory distress and has a pulse ox of 98 on room air. I s states that she has no history of pulmonary disease. She reports that her niece has asthma. Patient is not a smoker was exposed to secondhand smoke. Patient has given informed consent for diagnostic and therapeutic services. Rapid strep screen and influenza A and B have been ordered. She says that she has some generalized discomfort but does not show any signs of distress. Patient does have a history of bipolar disorder and is currently taking haloperidol. Timing/Duration: this afternoon Severity/Quality: mild, dry cough Prior Episodes/Possible Cause: no prior episodes (and denies any exposure to people were sick) Modifying Factors: Improves With Activity (when resting the patient has stopped coughing) Associated Symptoms: cough (by history but not observed when quiet in her room), nasal congestion, sore throat Allergies and Home Medications Allergies Coded Allergies: phenobarbital (Verified Allergy, Unknown, 12/08/18) Uncoded Allergies: ANTIHISTAMINES (Allergy, Unknown, 12/08/18) ASA (Allergy, Unknown, 12/08/18) Home Medications Baloxavir Marboxil 40 Mg Tablet, 80 MG PO ONCE Prescribed by: DEANDRE KEVIN on 10/08/19 1337 Benzonatate 100 Mg Capsule, 200 MG PO TID PRN for COUGH Prescribed by: DEANDRE KEVIN on 10/08/19 1340 Hyoscyamine Sulfate 0.125 Mg Tab.subl, 0.125 MG SL Q4H Prescribed by: SUDHEER BROWN on 07/13/19 2319 Hyoscyamine Sulfate 0.125 Mg Tab.subl, 0.125 MG SL Q8H Prescribed by: CLEMENT HOPKINS on 09/19/19 0530 Ibuprofen 800 Mg Tablet, 800 MG PO Q8H PRN for PAIN-MILD Prescribed by: EDANDRE KEVIN on 10/08/19 1340 Ondansetron 4 Mg Tab.rapdis, 4 MG PO Q6H Prescribed by: CLEMENT HOPKINS on 09/19/19 0530 Oseltamivir Phosphate 75 Mg Cap, 75 MG PO BID Prescribed by: DEANDRE KEVIN on 10/08/19 1337 Patient Home Medication List Home Medication List Reviewed: Yes Review of Systems Review of Systems Constitutional: weakness (and a history of generalized discomfort and coughing) EENTM: nose congestion, throat pain (with deep coughing) Respiratory: cough, other (no wheezing no stridor no retractions noted) Cardiovascular: no symptoms reported Gastrointestinal: no symptoms reported, other (cholecystectomy scar) Genitourinary: no symptoms reported Musculoskeletal: no symptoms reported Skin: no symptoms reported Psychiatric/Neurological: Anxiety, Depressed (history of bipolar depression on haloperidol) Hematologic/Lymphatic: No Symptoms Reported Immunological/Allergic: no symptoms reported Past Ozfknwi-Daferz-Ugyhsr Hx Past Med/Social Hx: Reviewed Nursing Past Med/Soc Hx Patient Social History Alcohol Use: Denies Use Recreational Drug Use: No Smoking Status: Never a Smoker 2nd Hand Smoke Exposure: No Recent Foreign Travel: No Contact w/Someone Who Travel: No Recent Infectious Disease Expo: No Recent Hopitalizations: No Physical Abuse: No Sexual Abuse: No Seasonal Allergies Seasonal Allergies: No Past Medical History Surgeries: Yes Abdominal, Gallbladder, Tubal Ligation Respiratory: No Cardiac: No Neurological: Yes Seizure Disorder Genitourinary: No Gastrointestinal: No Musculoskeletal: No Endocrine: No HEENT: No Cancer: No Psychosocial: No Integumentary: No Blood Disorders: No Physical Exam Vital Signs - First Documented 11/19/19 20:40 Temp 36.7 Pulse 90 Resp 20 B/P (MAP) 144/94 (111) Pulse Ox 98 O2 Delivery Room Air Capillary Refill : Less Than 3 Seconds Height: 5'2.00" Weight: 200lbs. oz. 90.450915rg; 38.00 BMI Method:Stated General Appearance: WD/WN, moderate distress, obese Eyes: Bilateral Eye Normal Inspection, Bilateral Eye PERRL, Bilateral Eye EOMI HEENT: PERRL/EOMI, normal ENT inspection, TMs normal (minimal wax), pharynx normal (minimal injection), other (poor dental care) Neck: non-tender, full range of motion, supple, normal inspection Respiratory: chest non-tender, lungs clear, normal breath sounds, no respiratory distress, no accessory muscle use Cardiovascular: regular rate, rhythm, no edema, no gallop, no JVD, no murmur Gastrointestinal: normal bowel sounds, non tender, soft, no organomegaly, no pulsatile mass Extremities: normal range of motion, non-tender, normal inspection, no pedal edema, no calf tenderness Neurologic/Psychiatric: pony trimmer II-XII nml as tested, no motor/sensory deficits, alert, normal mood/affect, oriented x 3, other (patient admits to some feelings of anxiety consistent with a prior history of bipolar disorder) Skin: normal color, warm/dry Lymphatic: no adenopathy Progress/Results/Core Measures Suspected Sepsis Recent Fever Within 48 Hours: No Infection Criteria Present: None New/Unexplained Altered Menta: No Sepsis Screen: No Definite Risk SIRS Temperature: Pulse: 90 Respiratory Rate: 20 Blood Pressure 144 /94 Mean: 111 Results/Orders Lab Results Laboratory Tests Test 11/19/19 21:00 Range/Units Group A Streptococcus Screen NEGATIVE NEGATIVE Micro Results Microbiology 11/19/19 Influenza Types A,B Antigen (EULALIO) - Final, Complete My Orders Orders - BRITTANY CORONA DO Rapid Strep A Screen (11/19/19 21:03) Influenza A And B Antigens (11/19/19 21:03) Vital Signs/I&O 11/19/19 20:40 Temp 36.7 Pulse 90 Resp 20 B/P (MAP) 144/94 (111) Pulse Ox 98 O2 Delivery Room Air Capillary Refill : Less Than 3 Seconds Blood Pressure Mean: 111 Progress Note : Time: 21:13 Progress Note EKG dictation was completed. Patient has a normal sinus rhythm with a heart rate of 93 and probable left atrial enlargement but no side of ischemic disease no ST-T wave changes. Rapid strep and influenza A and B are pending ECG Initial ECG Impression Date: Nov 19, 2019 Initial ECG Impression Time: 20:44 Initial ECG Rate: 93 Initial ECG Rhythm: Normal Sinus Initial ECG Intervals: Normal Departure Impression Primary Impression: Upper respiratory infection Additional Impression: Cough Disposition: 01 HOME, SELF-CARE Condition: Improved Departure-Patient Inst. Decision time for Depature: 21:38 Referrals: RONALDO MCCORMICK MD (PCP/Family) Primary Care Physician Patient Instructions: Cough, Adult (DC), Viral Upper Respiratory Infection, Adult (DC) Add. Discharge Instructions: 34-year-old female presents with upper respiratory tract infection. Her laboratory evaluation was negative for rapid strep and negative for influenza A and B. She has no evidence of a lower tract infection has no shortness of breath no hypoxia and no fevers. Patient is aware of the COVID-19 symptoms and will rest at home with fluids and Tylenol. Patient will follow up with her primary care provider. All discharge instructions reviewed with patient and/or family. Voiced understanding. Copy Copies To 1: RONALDO MCCORMICK MD, ANTHONY H DO Nov 19, 2019 21:09
[2019-11-19 21:45] VITALS: BP 113/81
== END 2019-11-19 21:45 | disposition home or self-care (01) ==
LOC: EDUNIT# 20:36 → ER FS 20:39
DX: J06.9 Acute upper respiratory infection, unspecified (principal); G40.909 Epilepsy, unspecified, not intractable, without status epilepticus
CPT/HCPCS: 87430; 87804

== ENCOUNTER → 2019-11-28 | Outpatient (CLI) | payer MEDICAID | LOC: LAB FS 09:00 | PROVIDERS: ATTEND Family Medicine | DX: N92.6 Irregular menstruation, unspecified (principal) | CPT/HCPCS: 36415; 84702 ==

== ENCOUNTER → 2019-12-06 | Outpatient (CLI) | payer MEDICAID ==
[~2019-12-06] MED LIST changes: +CATHETER FLUSH 10 ML SYR IV PRN; +HOLD METFORMIN - RECEIVED CONTRAST 20 ML VIAL IV SCH; +IOHEXOL 350 MG/ML 100 ML (OMNIPAQUE 350) VIAL IV ONE; +NS 100 ML (IVPB) BAG IV ONE
--- NOTE | 2019-12-06 10:14 | Diagnostic Imaging Report ---
EXAM: ABDOMEN (KUB) 1 VIEW INDICATION: Abdominal pain. COMPARISON: None FINDINGS: Cholecystectomy clips. Moderate amount of stool throughout the colon and rectum. Paucity of small bowel gas. No radiopaque foreign bodies. No acute osseous findings. IMPRESSION: 1. Nonspecific bowel gas pattern. 2. Moderate amount of stool throughout the colon and rectum. Dictated by: Dictated on workstation # [id number]
[2019-12-06 10:52] LABS: WHITE BLOOD COUNT 9.3 10^3/uL (4.3-11.0)
[2019-12-06 10:53] LABS: BASOPHILS # (AUTO) 0.1 10^3/uL (0.0-0.1); BASOPHILS % (AUTO) 1 % (0-10); EOSINOPHILS # (AUTO) 0.4 10^3/uL (0.0-0.3); EOSINOPHILS % (AUTO) 4 % (0-10); HEMATOCRIT 41 % (35-52); HEMOGLOBIN 13.9 G/DL (11.5-16.0); LYMPHOCYTES # (AUTO) 2.1 X 10^3 (1.0-4.0); LYMPHOCYTES % (AUTO) 23 % (12-44); MEAN CORPUSCULAR HEMOGLOBIN 32 PG (25-34); MEAN CORPUSCULAR HGB CONC 34 G/DL (32-36); MEAN CORPUSCULAR VOLUME 96 FL (80-99); MEAN PLATELET VOLUME 10.2 FL (7.4-10.4); MONOCYTES # (AUTO) 0.8 X 10^3 (0.0-1.0); MONOCYTES % (AUTO) 9 % (0-12); NEUTROPHILS # (AUTO) 5.9 X 10^3 (1.8-7.8); NEUTROPHILS % (AUTO) 63 % (42-75); PLATELET COUNT 347 10^3/uL (130-400); RED CELL DISTRIBUTION WIDTH 12.5 % (10.0-14.5)
--- NOTE | 2019-12-06 10:57 | Diagnostic Imaging Report ---
PROCEDURE: CT abdomen and pelvis with and without contrast. TECHNIQUE: Precontrast acquisitions were acquired through the abdomen and pelvis. Multiple contiguous axial images were obtained through the abdomen and pelvis after the administration of intravenous contrast. Auto Exposure Controls were utilized during the CT exam to meet ALARA standards for radiation dose reduction. INDICATION: Chronic intermittent periumbilical pain with nausea. FINDINGS: There is an approximately 0.4 cm subpleural nodule seen in the lateral aspect of the left lower lobe. Below the diaphragm, note is made of mild diffuse fatty infiltration throughout the liver without evidence of focal hepatic, pancreatic, adrenal gland, or splenic lesion. Gallbladder is surgically absent. There is no evidence of renal lesion. There is no evidence of bowel obstruction. No free fluid or gas is seen within the peritoneum. There is no evidence of organized fluid collection. Unopacified bladder is unremarkable. The appendix has a normal appearance. No osseous abnormalities identified. There is mild protrusion of omental fat at the level of the umbilicus without bowel herniation identified. IMPRESSION: 1. 0.4 cm subpleural nodule in the lower lobe of the left lung could represent granuloma. 2. Note is made of mild anterior protrusion of omental fat at the level of the umbilicus without evidence of herniation. 3. Otherwise, no acute abnormality is seen within the abdomen or pelvis. Dictated by: Dictated on workstation # [id number]
[2019-12-06 11:04] LABS: ALANINE AMINOTRANSFERASE 17 U/L (0-55); ALKALINE PHOSPHATASE 71 U/L (40-136); BILIRUBIN,TOTAL 0.2 MG/DL (0.1-1.0); BUN/CREATININE RATIO 19; CALCIUM 9.4 MG/DL (8.5-10.1); CARBON DIOXIDE 25 MMOL/L (21-32); CHLORIDE 99 MMOL/L (98-107); CREATININE SERUM 0.74 MG/DL (0.60-1.30); GFR ESTIMATED > 60; GLUCOSE 97 MG/DL (70-105); POTASSIUM 3.8 MMOL/L (3.6-5.0); SODIUM 134 MMOL/L (135-145)
[2019-12-06 11:05] LABS: ALBUMIN 4.1 GM/DL (3.2-4.5); TOTAL PROTEIN 7.1 GM/DL (6.4-8.2)
== END ==
LOC: LAB FS 09:45
PROVIDERS: ATTEND Nurse Practitioner Family
DX: R10.33 Periumbilical pain (principal); Z87.19 Personal history of other diseases of the digestive system; R91.8 Other nonspecific abnormal finding of lung field
CPT/HCPCS: 36415; 74018; 74178; 80053; 85025

== ENCOUNTER 2020-01-01 14:55 | Emergency (ER) | payer MEDICAID ==
[~2020-01-01 14:55] MED LIST changes: -CATHETER FLUSH 10 ML SYR IV PRN; -HOLD METFORMIN - RECEIVED CONTRAST 20 ML VIAL IV SCH; -IOHEXOL 350 MG/ML 100 ML (OMNIPAQUE 350) VIAL IV ONE; -NS 100 ML (IVPB) BAG IV ONE
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
[2020-01-01 15:26] LABS: HEMATOCRIT 44 % (35-52); MEAN CORPUSCULAR HEMOGLOBIN 33 PG (25-34); MEAN CORPUSCULAR HGB CONC 34 G/DL (32-36); MEAN CORPUSCULAR VOLUME 97 FL (80-99); MEAN PLATELET VOLUME 10.3 FL (7.4-10.4); PLATELET COUNT 348 10^3/uL (130-400); RED CELL DISTRIBUTION WIDTH 12.8 % (10.0-14.5); WHITE BLOOD COUNT 9.3 10^3/uL (4.3-11.0)
[2020-01-01 15:27] LABS: BASOPHILS % (AUTO) 0 % (0-10); EOSINOPHILS # (AUTO) 0.3 10^3/uL (0.0-0.3); EOSINOPHILS % (AUTO) 4 % (0-10); LYMPHOCYTES # (AUTO) 2.3 X 10^3 (1.0-4.0); LYMPHOCYTES % (AUTO) 25 % (12-44); MONOCYTES # (AUTO) 0.9 X 10^3 (0.0-1.0); MONOCYTES % (AUTO) 10 % (0-12); NEUTROPHILS # (AUTO) 5.6 X 10^3 (1.8-7.8); NEUTROPHILS % (AUTO) 61 % (42-75)
[2020-01-01 15:31] LABS: BACTERIA,URINE FEW /HPF; BILIRUBIN,URINE NEGATIVE (NEGATIVE); CLARITY,URINE SL CLOUDY; COLOR,URINE YELLOW; GLUCOSE, URINE (UA) NEGATIVE (NEGATIVE); KETONES,URINE NEGATIVE (NEGATIVE); LEUKOCYTE ESTERASE ,URINE 1+ (NEGATIVE); NITRITE,URINE NEGATIVE (NEGATIVE); PROTEIN,URINE NEGATIVE (NEGATIVE)
[2020-01-01 15:32] LABS: SQUAMOUS EPITHELIAL CELL,UR >50 /HPF
[2020-01-01 15:35] LABS: AMPHETAMINE SCREEN, URINE NEGATIVE (NEGATIVE); BARBITURATE SCREEN URINE NEGATIVE (NEGATIVE); BENZODIAZEPINES SCREEN URINE NEGATIVE (NEGATIVE); CANNABINOID SCREEN, URINE NEGATIVE (NEGATIVE); COCAINE SCREEN URINE NEGATIVE (NEGATIVE); METHAMPHETAMINE SCREEN URINE S NEGATIVE (NEGATIVE); OPIATE SCREEN URINE NEGATIVE (NEGATIVE)
[2020-01-01 15:36] LABS: METHADONE STAT NEGATIVE (NEGATIVE); OXYCODONE STAT NEGATIVE (NEGATIVE); PROPOXYPHENE STAT NEGATIVE (NEGATIVE); TRICYCLIC ANTIDEPRESSANTS SCRE NEGATIVE (NEGATIVE)
[2020-01-01 15:46] LABS: ALANINE AMINOTRANSFERASE 18 U/L (0-55); ALKALINE PHOSPHATASE 80 U/L (40-136); BILIRUBIN,TOTAL 0.2 MG/DL (0.1-1.0); BUN/CREATININE RATIO 19; CALCIUM 10.2 MG/DL (8.5-10.1); CARBON DIOXIDE 27 MMOL/L (21-32); CHLORIDE 100 MMOL/L (98-107); CREATININE SERUM 0.63 MG/DL (0.60-1.30); GFR ESTIMATED > 60; GLUCOSE 97 MG/DL (70-105); POTASSIUM 3.9 MMOL/L (3.6-5.0); SODIUM 139 MMOL/L (135-145)
[2020-01-01 15:47] LABS: ACETAMINOPHEN < 10 UG/ML (10-30); ALBUMIN 4.4 GM/DL (3.2-4.5); SALICYLATE < 0.3 MG/DL (5.0-20.0); TOTAL PROTEIN 7.8 GM/DL (6.4-8.2)
--- NOTE | 2020-01-01 16:31 | NUR ---
1612 - Reached out to [facility] at this time to request mental health screening. Informed at this time that both screeners were currently in mental health screenings. 1615 - Reached out to [facility] at this time to request mental health screening. Informed that they were going to go ahead and reach out to [facility] as well that one of them would end up screening the patient but it would be after 5pm.
--- NOTE | 2020-01-01 16:45 | NUR ---
Contacted by Murphy Salcido at [facility]. Mental health screening initated at this time.
--- OUTSIDE RECORDS SUMMARY | 2020-01-01 19:17 | XMS REPORT | Continuity of Care Document ---
Author Organization Unknown Address Unknown Phone Unavailable Allergies Active Description Code Type Severity Reaction Onset Reported/Identified Relationship to Patient Clinical Status Yes ANTIHISTAMINES ANTIHISTAMINES Unknown N/A 12/08/2018 Yes ASA ASA Unknown N/A 12/08/2018 Yes phenobarbital [id number] Vlad g Allergy Unknown N/A 12/08/2018 Medications [...] ANALGESIC AGENT STATUS 10/08/2019 DEANDRE KEVIN DO Doron Ot Z88 .8 ALLERGY STATUS TO OTH DRUG/MEDS/BIOL SUB 10/13/2019 [facility], DEANDRE Sal Ot J11 .1 FLU DUE TO UNIDENTIFIED INFLUENZA VIRUS 10/13/2019 [facility], DEANDRE Doron Ot R05 COUGH 10/13/2019 [facility], DEANDRE Doron Ot Z88 .6 ALLERGY STATUS TO ANALGESIC AGENT STATUS 10/13/2019 [facility], DEANRDE Doron Ot Z88 .8 ALLERGY STATUS TO OTH DRUG/MEDS/BIOL SUB 11/19/2019 [facility], BRITTANY H Ot G40.909 EPILEPSY, UNSP, NOT INTRACTABLE, WITHOUT 11/19/2019 [facility], BRITTANY H Ot J06.9 ACUTE UPPER RESPIRATORY INFECTION, UNSPE 11/19/2019 [facility], BRITTANY H Ot R0 5 COUGH 11/21/2019 [facility], BRITTANY H Ot G40.909 EPILEPSY, UNSP, NOT INTRACTABLE, WITHOUT 11/21/2019 [facility], BRITTANY H Ot J06.9 ACUTE UPPER RESPIRATORY INFECTION, UNSPE 11/21/2019 [facility], BRITTANY H Ot R0 5 COUGH 11/29/2019 [facility], KIMBERLY Stauffer Ot N92 .6 IRREGULAR MENSTRUATION, UNSPECIFIED 11/29/2019 RUB[facility] SCOTT, KIMBERLY Stauffer Ot N92 .6 IRREGULAR MENSTRUATION, UNSPECIFIED 12/06/2019 RUB[facility] SCOTT, KIMBERLY Stauffer Ot N92 .6 IRREGULAR MENSTRUATION, UNSPECIFIED 12/07/2019 [facility], RADU K SEARCH SPECIALIST Ot R10.33 PERIUMBILICAL PAIN 12/07/2019 O'DELL, RADU K SEARCH SPECIALIST Ot R91 .8 OTHER NONSPECIFIC ABNORMAL FINDING OF CAMILO 12/07/2019 O'DELL, RADU K SEARCH SPECIALIST Ot Z87.19 PERSONAL HISTORY OF OTHER DISEASES OF 12/20/2019 O'DELL, RADU K SEARCH SPECIALIST Ot R10.33 PERIUMBILICAL PAIN 12/20/2019 O'DELL, RADU K SEARCH SPECIALIST Ot R91 .8 OTHER NONSPECIFIC ABNORMAL FINDING OF CAMILO 12/20/2019 O'DELL, RADU K SEARCH SPECIALIST Ot Z87.19 PERSONAL HISTORY OF OTHER DISEASES OF Procedures There is no data. Results Test [...] NRG STATEMENT OF ADEQUACY: NRG INTERPRETATION/RESULT: NRG SENIOR ANALYST PROGRAMMER: NRG COMMENT NRG Complete urinalysis with reflex [...] 15:42 VITAMIN D,25-OH,TOTAL,IA 29 ng/mL 30-10 0 Streptococcus pyogenes antigen detection - 11/19/19 21:00 Streptococcus pyogenes antigen detection NEGATIVE NEGATIVE Influenza virus A and B antigen detectio n - 11/19/19 21:00 FLU RESULT NEGATIVE FOR INFLUENZA A AND B ANTIGENS BY [facility] Bacterial throat culture - 11/19/19 21:0 0 Bacterial throat culture NBS NR UA W/ MICROSCOPY - 12/06/19 09:38 COLOR YELLOW YELLOW APPEARANCE CLEAR CLEAR SPECIFIC GRAVITY 1.019 1.001-1.035 PH 6.0 5.0-8.0 GLUCOSE NEGATIVE NEGATIVE BILIRUBIN NEGATIVE NEGATIVE KETONES NEGATIVE NEGATIVE OCCULT BLOOD 1+ NEGATIVE PROTEIN NEGATIVE NEGATIVE NITRITE NEGATIVE NEGATIVE LEUKOCYTE ESTERASE NEGATIVE NEGATIVE WBC 0-5 /HPF < OR = 5 RBC 3-10 /HPF < OR = 2 SQUAMOUS EPITHELIAL CELLS 6-10 /HPF < OR = 5 BACTERIA FEW /HPF NONE SEEN HYALINE CAST NONE SEEN /LPF NONE SEEN Complete blood count (CBC) with automate d white blood cell (WBC) differential - 12/06/19 10:30 Blood leukocytes automated count (number/volume) 9.3 10*3/uL 4.3-11.0 Blood erythrocytes automated count (number/volume) 4.30 10*6/uL 4.35-5.85 Venous blood hemoglobin measurement (mass/volume) 13.9 g/dL 11.5-16.0 Blood hematocrit (volume fraction) 41 % 35-52 Automated erythrocyte mean corpuscular volume 96 [ foz_us] 80-99 Automated erythrocyte mean corpuscular h emoglobin (mass per erythrocyte) 32 pg 25-34 Automated erythrocyte mean corpuscular h emoglobin concentration measurement (mass/volume) 34 g/dL 32-36 Automated erythrocyte distribution width ratio 12. 5 % 10.0- 14.5 Automated blood platelet count (count/volume) 347 10*3/uL 130-400 Automated blood platelet mean volume measurement 10.2 [foz_us] 7.4-10.4 Automated blood neutrophils/100 leukocytes 63 % 42-75 Automated blood lymphocytes/100 leukocytes 23 % 12-44 Blood monocytes/100 leukocytes 9 % 0-12 Automated blood eosinophils/100 leukocytes 4 % 0-10 Automated blood basophils/100 leukocytes 1 % 0-10 Blood neutrophils automated count (number/volume) 5.9 10*3 1.8-7.8 Blood lymphocytes automated count (number/volume) 2.1 10*3 1.0-4.0 Blood monocytes automated count (number/volume) 0. 8 10*3 0.0-1.0 Automated eosinophil count 0.4 10*3/uL 0 .0-0.3 Automated blood basophil count (count/volume) 0.1 10*3/uL 0.0-0.1 Comprehensive metabolic panel - 12/06/19 10:30 Serum or plasma sodium measurement (moles/volume) 134 mmol/L 135-145 Serum or plasma potassium measurement (moles/volume) 3.8 mmol/L 3.6-5.0 Serum or plasma chloride measurement (moles/volume) 99 mmol/L 98-107 Carbon dioxide 25 mmol/L 21-32 Serum or plasma anion gap determination (moles/volume) 10 mmol/L 5-14 Serum or plasma urea nitrogen measurement (mass/volume ) 14 mg/dL 7-18 Serum or plasma creatinine measurement (mass/volume) 0.74 mg/dL 0.60-1.30 Serum or plasma urea nitrogen/creatinine mass ratio 19 NRG Serum or plasma creatinine measurement w ith calculation of estimated glomerular filtration rate > NRG Serum or plasma glucose measurement (mass/volume) 97 mg/dL 70-105 Serum or plasma calcium measurement (mass/volume) 9.4 mg/dL 8.5-10.1 Serum or plasma total bilirubin measurement (mass/volu me) 0.2 mg/dL 0.1-1.0 Serum or plasma alkaline phosphatase aj surement (enzymatic activity/volume) 71 U/L 40-136 Serum or plasma aspartate aminotransfera se measurement (enzymatic activity/volume) 15 U/L 5-34 Serum or plasma alanine aminotransferase measurement (enzymatic activity/volume) 17 U/L 0-55 Serum or plasma protein measurement (mass/volume) 7.1 g/dL 6.4-8.2 Serum or plasma albumin measurement (mass/volume) 4.1 g/dL 3.2-4.5 CALCIUM CORRECTED 9.3 mg/dL 8.5-10.1 Complete blood count (CBC) with automate d white blood cell (WBC) differential - 01/01/20 15:14 Blood leukocytes automated count (number/volume) 9.3 10*3/uL 4.3-11.0 Blood erythrocytes automated count (number/volume) 4.59 10*6/uL 4.35-5.85 Venous blood hemoglobin measurement (mass/volume) 15.0 g/dL 11.5-16.0 Blood hematocrit (volume fraction) 44 % 35-52 Automated erythrocyte mean corpuscular volume 97 [ foz_us] 80-99 Automated erythrocyte mean corpuscular h emoglobin (mass per erythrocyte) 33 pg 25-34 Automated erythrocyte mean corpuscular h emoglobin concentration measurement (mass/volume) 34 g/dL 32-36 Automated erythrocyte distribution width ratio 12. 8 % 10.0- 14.5 Automated blood platelet count (count/volume) 348 10*3/uL 130-400 Automated blood platelet mean volume measurement 10.3 [foz_us] 7.4-10.4 Automated blood neutrophils/100 leukocytes 61 % 42-75 Automated blood lymphocytes/100 leukocytes 25 % 12-44 Blood monocytes/100 leukocytes 10 % 0-12 Automated blood eosinophils/100 leukocytes 4 % 0-10 Automated blood basophils/100 leukocytes 0 % 0-10 Blood neutrophils automated count (number/volume) 5.6 10*3 1.8-7.8 Blood lymphocytes automated count (number/volume) 2.3 10*3 1.0-4.0 Blood monocytes automated count (number/volume) 0. 9 10*3 0.0-1.0 Automated eosinophil count 0.3 10*3/uL 0 .0-0.3 Automated blood basophil count (count/volume) 0.0 10*3/uL 0.0-0.1 Comprehensive metabolic panel - 01/01/20 15:14 Serum or plasma sodium measurement (moles/volume) 139 mmol/L 135-145 Serum or plasma potassium measurement (moles/volume) 3.9 mmol/L 3.6-5.0 Serum or plasma chloride measurement (moles/volume) 100 mmol/L 98-107 Carbon dioxide 27 mmol/L 21-32 Serum or plasma anion gap determination (moles/volume) 12 mmol/L 5-14 Serum or plasma urea nitrogen measurement (mass/volume ) 12 mg/dL 7-18 Serum or plasma creatinine measurement (mass/volume) 0.63 mg/dL 0.60-1.30 Serum or plasma urea nitrogen/creatinine mass ratio 19 NRG Serum or plasma creatinine measurement w ith calculation of estimated glomerular filtration rate > NRG Serum or plasma glucose measurement (mass/volume) 97 mg/dL 70-105 Serum or plasma calcium measurement (mass/volume) 10.2 mg/dL 8.5-10.1 Serum or plasma total bilirubin measurement (mass/volu me) 0.2 mg/dL 0.1-1.0 Serum or plasma alkaline phosphatase aj surement (enzymatic activity/volume) 80 U/L 40-136 Serum or plasma aspartate aminotransfera se measurement (enzymatic activity/volume) 15 U/L 5-34 Serum or plasma alanine aminotransferase measurement (enzymatic activity/volume) 18 U/L 0-55 Serum or plasma protein measurement (mass/volume) 7.8 g/dL 6.4-8.2 Serum or plasma albumin measurement (mass/volume) 4.4 g/dL 3.2-4.5 CALCIUM CORRECTED 9.9 mg/dL 8.5-10.1 Serum or plasma salicylates measurement (mass/volume) - 01/01/20 15:14 Serum or plasma salicylates measurement (mass/volume) < mg/dL 5.0-20.0 Serum or plasma acetaminophen measuremen t (mass/volume) - 01/01/20 15:14 Serum or plasma acetaminophen measurement (mass/volume ) < ug/mL 10-30 Serum or plasma ethanol measurement (mas s/volume) - 01/01/20 15:14 Serum or plasma ethanol measurement (mass/volume) < mg/dL <10 Complete urinalysis with reflex to cultu re - 01/01/20 15:17 Urine color determination YELLOW NRG Urine clarity determination SL CLOUDY N RG Urine pH measurement by test strip 7.0 5-9 Specific gravity of urine by test strip 1.025 1.016-1.022 Urine protein assay by test strip, semi-quantitative NEGATIVE NEGATIVE Urine glucose detection by automated test strip NE GATIVE NEGATIVE Erythrocytes detection in urine sediment by light micr oscopy TRACE NEGATIVE Urine ketones detection by automated test strip NE GATIVE NEGATIVE Urine nitrite detection by test strip NEGATIVE NEGATIVE Urine total bilirubin detection by test strip NEGA TIVE NEGATIVE Urine urobilinogen measurement by automated test strip (mass/volume) 0.2 mg/dL < = 1.0 Urine leukocyte esterase detection by dipstick 1+ NEGATIVE Automated urine sediment erythrocyte cou nt by microscopy (number/high power field) [HPF] NRG Automated urine sediment leukocyte count by microscopy (number/high power field) [HPF] NRG Bacteria detection in urine sediment by light microsco py FEW NRG Squamous epithelial cells detection in u rine sediment by light microscopy >50 NRG Crystals detection in urine sediment by light microsco py NONE NRG Casts detection in urine sediment by light microscopy NONE NRG Mucus detection in urine sediment by light microscopy NEGATIVE NRG Complete urinalysis with reflex to culture YES NRG Urine drug screening test - 01/01/20 15: 17 Urine phencyclidine detection by screening method NEGATIVE NEGATIVE Urine benzodiazepines detection by screening method NEGATIVE NEGATIVE Urine cocaine detection NEGATIVE NEGATI VE Urine amphetamines detection by screening method N EGATIVE NEGATIVE Urine methamphetamine detection by screening method NEGATIVE NEGATIVE Urine cannabinoids detection by screening method N EGATIVE NEGATIVE Urine opiates detection by screening method NEGATI VE NEGATIVE Urine barbiturates detection NEGATIVE N EGATIVE Screening urine tricyclic antidepressants detection NEGATIVE NEGATIVE Urine methadone detection by screening method NEGA TIVE NEGATIVE Urine oxycodone detection NEGATIVE NEGA TIVE Urine propoxyphene detection NEGATIVE N EGATIVE Encounters ACCT No. Visit Date/Time Discharge Status Pt. Type Provider Facility Loc./Unit Complaint [id number] 12/27/2019 13:30:00 12/27/2019 23:59:[address] [facility] Outpatient RONALDO MCCORMICK [facility] [id number] 12/06/2019 09:20:00 Document Registration [id number] 09/25/2019 15:30:00 Document Registration [id number] 05/11/2019 15:00:00 Document Registration [id number] 11/04/2018 15:00:00 Document Registration [id number] 12/06/2019 09:45:00 23:59:59 CLS Outpatient RADU DOUGLAS APRN [facility] LAB FS PERIUMBILICAL ABD PAIN, HISTORY OF [facility] HERNIA [id number] 11/28/2019 09:00:00 23:59:59 CLS Outpatient RUBEN SCOTT, KIMBERLY Stauffer [facility] LAB FS MISSED MENSES [id number] 11/19/2019 20:39:00 21:45:00 DIS Emergency BRITTANY CORONA DO [facility] ER FS COUGHH/SOB [id number] 10/08/2019 13:31:00 13:44:00 DIS Emergency DEANDRE KEVIN DO [facility] ER FS COUGESTION,COUGH,SORE T HROAT [id number] 09/19/2019 04:54:00 05:36:00 DIS Emergency ROVENSTCLEMENT HUNT DO [facility] ER FS N/V/D [id number] 07/13/2019 21:15:00 23:42:00 DIS Emergency SUDHEER BROWN MD [facility] ER FS ABD PAIN [id number] 02/02/2019 19:43:00 21:08:00 DIS Emergency MINDA SALINAS DO [facility] ER FS NAVEL PAIN [id number] 12/29/2018 15:48:00 16:55:00 DIS Emergency DOMENICAJIEIS [facility] ER FOOT PAIN [id number] 12/07/2018 23:40:00 02:54:00 DIS Emergency CHRIS SCOTT, MARY JANE Mc [facility] ER FS SPINAL PAIN [id number] 01/01/2020 14:57:[address] Emergency GABE SCOTT, DEANDRE Peralta [facility] ER FS SUICIDAL IDEATION
[2020-01-01] MEDS ORDERED: ACETAMINOPHEN 325 MG TABLET PO ONE (19:30)
[2020-01-01 21:02] VITALS: BP 128/82
== END 2020-01-01 21:40 ==
LOC: EDUNIT# 14:55 → ER FS 14:57
DX: R45.851 Suicidal ideations (principal); F32.9 Major depressive disorder, single episode, unspecified; Z88.6 Allergy status to analgesic agent; Z88.8 Allergy status to other drugs, medicaments and biological substances
CPT/HCPCS: 36415; 80053; 80306; 80320; 80329; 81000; 84443; 85025; 87088

== ENCOUNTER → 2020-01-12 | Outpatient (CLI) | payer MEDICAID | LOC: LAB FS 15:03 | PROVIDERS: ATTEND Family Medicine | DX: N89.8 Other specified noninflammatory disorders of vagina (principal) | CPT/HCPCS: 36415; 87491; 87591 ==

== ENCOUNTER 2020-01-30 17:55 | Emergency (ER) | payer MEDICAID ==
[~2020-01-30] VITALS: Ht 157 cm; Wt 97.4 kg
--- NOTE | 2020-01-30 18:23 | ED Psychosocial ---
General Stated Complaint: OVARIAN PAIN Source: patient History of Present Illness Date Seen by Provider: Jan 30, 2020 Time Seen by Provider: 18:01 Allergies and Home Medications Allergies Coded Allergies: phenobarbital (Verified Allergy, Unknown, 12/08/18) Uncoded Allergies: ANTIHISTAMINES (Allergy, Unknown, 12/08/18) ASA (Allergy, Unknown, 12/08/18) Home Medications Baloxavir Marboxil 40 Mg Tablet, 80 MG PO ONCE Prescribed by: DEANDRE KEVIN on 10/08/19 1337 Benzonatate 100 Mg Capsule, 200 MG PO TID PRN for COUGH Prescribed by: DEANDRE KEVIN on 10/08/19 1340 Hyoscyamine Sulfate 0.125 Mg Tab.subl, 0.125 MG SL Q4H Prescribed by: SUDHEER BROWN on 07/13/19 2319 Hyoscyamine Sulfate 0.125 Mg Tab.subl, 0.125 MG SL Q8H Prescribed by: CLEEMNT HOPKINS on 09/19/19 0530 Ibuprofen 800 Mg Tablet, 800 MG PO Q8H PRN for PAIN-MILD Prescribed by: DEANDRE KEVIN on 10/08/19 1340 Ondansetron 4 Mg Tab.rapdis, 4 MG PO Q6H Prescribed by: CLEMENT HOPKINS on 09/19/19 0530 Oseltamivir Phosphate 75 Mg Cap, 75 MG PO BID Prescribed by: DEANDRE KEVIN on 10/08/19 1337 Past Mrwvuel-Oikmnb-Gwrhch Hx Patient Social History 2nd Hand Smoke Exposure: No Recent Foreign Travel: No Contact w/Someone Who Travel: No Recent Hopitalizations: No Seasonal Allergies Seasonal Allergies: No Past Medical History Surgeries: Yes Abdominal, Gallbladder, Tubal Ligation Respiratory: No Cardiac: No Neurological: Yes Seizure Disorder Genitourinary: No Gastrointestinal: No Musculoskeletal: No Endocrine: No HEENT: No Cancer: No Psychosocial: No Integumentary: No Blood Disorders: No Physical Exam Capillary Refill : Height, Weight, BMI Height: 5'2.00" Weight: 200lbs. oz. 90.128461qj; 38.00 BMI Method:Stated Departure Departure-Patient Inst. Referrals: RONALDO MCCORMICK MD (PCP/Family) Primary Care Physician MARY JANE PEREZ MD Jan 30, 2020 18:23
--- NOTE | 2020-01-30 18:34 | ED GU-Female ---
General Chief Complaint: - Urinary Stated Complaint: OVARIAN PAIN Nursing Triage Note: PT HAS BEEN TO DR. WOLF, DR. MIRANDA AND A DR IN [place] WANTING A HYSTERECTOMY FOR PAIN. ASHER DANIEL SCHEDULED HER FOR FEBRUARY 21 BUT SHE SAID THATS NOT SOON ENOUGH. PT STATES THE TYLENOL # 3 ONLY WORK FOR [address] WOLF GAVE HER[address] Nursing Sepsis Screen: No Definite Risk Source: patient History of Present Illness Date Seen by Provider: Jan 30, 2020 Time Seen by Provider: 18:34 Initial Comments 34-year-old female presenting with complaints of pelvic pain and irregular bleeding. She reports having been seen by Dr. Wolf as well as Dr. Miranda and provider in [place]. She was told that she would need a hysterectomy for her symptoms. She has an appointment scheduled February 21 but felt like she could not tolerate the pain any longer. She states that she tried calling Dr. Wolf office but did not get an answer. She came in here since the pain was so bad and she was concerned about her need for hysterectomy. She denies any fever or chills. She's had no heavy vaginal bleeding. She denies feeling dizzy or lightheaded. Allergies and Home Medications Allergies Coded Allergies: phenobarbital (Verified Allergy, Unknown, 12/08/18) Uncoded Allergies: ANTIHISTAMINES (Allergy, Unknown, 12/08/18) ASA (Allergy, Unknown, 12/08/18) Home Medications Baloxavir Marboxil 40 Mg Tablet, 80 MG PO ONCE Prescribed by: DEANDRE KEVIN on 10/08/19 1337 Benzonatate 100 Mg Capsule, 200 MG PO TID PRN for COUGH Prescribed by: DEANDRE KEVIN on 10/08/19 1340 Hyoscyamine Sulfate 0.125 Mg Tab.subl, 0.125 MG SL Q4H Prescribed by: SUDHEER BROWN on 07/13/19 2319 Hyoscyamine Sulfate 0.125 Mg Tab.subl, 0.125 MG SL Q8H Prescribed by: CLEMENT HOPKINS on 09/19/19 0530 Ibuprofen 800 Mg Tablet, 800 MG PO Q8H PRN for PAIN-MILD Prescribed by: DEANDRE KEVIN on 10/08/19 1340 Ondansetron 4 Mg Tab.rapdis, 4 MG PO Q6H Prescribed by: CLEMENT HOPKINS on 09/19/19 0530 Oseltamivir Phosphate 75 Mg Cap, 75 MG PO BID Prescribed by: DEANDRE KEVIN on 10/08/19 1337 Patient Home Medication List Home Medication List Reviewed: Yes Review of Systems Review of Systems Constitutional: No chills, No dizziness, No fever EENTM: no symptoms reported Respiratory: no symptoms reported Cardiovascular: no symptoms reported Gastrointestinal: no symptoms reported Genitourinary: see HPI Musculoskeletal: no symptoms reported Skin: no symptoms reported Psychiatric/Neurological: No Symptoms Reported Past Jcpvqux-Qpjjvh-Dnevie Hx Past Med/Social Hx: Reviewed Nursing Past Med/Soc Hx Patient Social History Alcohol Use: Denies Use Recreational Drug Use: No Smoking Status: Current Everyday Smoker Type Used: Cigarettes 2nd Hand Smoke Exposure: No Recent Foreign Travel: No Contact w/Someone Who Travel: No Recent Infectious Disease Expo: No Recent Hopitalizations: No Physical Abuse: No Sexual Abuse: No Mistreated: No Fear: No Seasonal Allergies Seasonal Allergies: No Past Medical History Surgeries: Yes Abdominal, Gallbladder, Tubal Ligation Respiratory: No Cardiac: No Neurological: Yes Seizure Disorder Female Reproductive Disorders: Menstrual Problems 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 oz. 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 as tested, no motor/sensory deficits, alert, normal mood/affect, oriented x 3 Skin: normal color, warm/dry Progress/Results/Core Measures Suspected Sepsis Recent Fever Within 48 Hours: No Infection Criteria Present: None New/Unexplained Altered Menta: No Sepsis Screen: No Definite Risk SIRS Temperature: Pulse: 106 Respiratory Rate: 18 Blood Pressure 131 /91 Mean: 104 Results/Orders My Orders Orders - MARY JANE PEREZ MD Morphine Injection (Morphine Injection (01/30/20 19:09) Rx-Hydrocodone/Apap 5-325 Mg (Rx-Vicodin (01/30/20 19:30) Rx-Hydrocodone/Apap 5-325 Mg (Rx-Vicodin (01/30/20 19:21) Medications Given in ED Current Medications Medications Dose Ordered Sig/Silver Route Start Time Stop Time Status Last Admin Dose Admin Acetaminophen/ Hydrocodone Bitart 1 ea Q6H PRN PO 01/30/20 19:30 01/30/20 19:31 DC 01/30/20 19:27 1 EA Vital Signs/I&O 01/30/20 01/30/20 18:15 19:31 Temp 36.3 Pulse 106 88 Resp 18 18 B/P (MAP) 131/91 (104) 142/90 (104) Pulse Ox 96 99 O2 Delivery Room Air Room Air Capillary Refill : Less Than 3 Seconds Blood Pressure Mean: 104 Progress Note : Progress Note Discussed with Dr. Wolf and give the patient pain shot here and send with a few hydrocodone for overnight. He stated that he is very familiar with the patient and will see her tomorrow, Wednesday, January 30, in his clinic. Departure Impression Primary Impression: Chronic pelvic pain in female Additional Impression: Dysfunctional uterine bleeding Disposition: HOME, SELF-CARE Condition: Stable Departure-Patient Inst. Decision time for Depature: 19:22 Referrals: RONALDO MCCORMICK MD (PCP/Family) Primary Care Physician ANICETO WOLF DO Patient Instructions: Chronic Pelvic Pain (DC), Absent or Irregular Periods Add. Discharge Instructions: Follow up with Dr. Wolf in clinic tomorrow. Call after 8 am to see when he wants you to come see him. All discharge instructions reviewed with patient and/or family. Voiced understanding. MARY JANE PEREZ MD Jan 30, 2020 18:34
[2020-01-30] MEDS ORDERED: morphine INJ 10 MG/ML 1ML (SYR OR VIAL) IM STA (19:09)
[2020-01-30] MEDS ORDERED: RX-HYDROCODONE/APAP 5/325 MG #4 TAB PK PO ONE (19:21)
[2020-01-30] MEDS ORDERED: RX-HYDROCODONE/APAP 5/325 MG #4 TAB PK PO PRN (19:30)
[2020-01-30 19:31] VITALS: BP 142/90
--- OUTSIDE RECORDS SUMMARY | 2020-01-30 20:56 | XMS REPORT | Continuity of Care Document ---
Author Organization Unknown Address Unknown Phone Unavailable Allergies Active Description Code Type Severity Reaction Onset Reported/Identified Relationship to Patient Clinical Status Yes ANTIHISTAMINES ANTIHISTAMINES Unknown N/A 12/08/2018 Yes ASA ASA Unknown N/A 12/08/2018 Yes phenobarbital [id number] Vlad g Allergy Unknown N/A 12/08/2018 Yes ASPIRIN 73732 DRUG INGREDI N/A Other 01/02/2020 01/02/2020 Yes DIPHENHYDRAMINE 20535 DRUG INGRED I N/A Other 01/02/2020 01/02/2020 Yes PHENOBARBITAL 20003 DRUG INGREDI N/A Other 01/02/2020 01/02/2020 Medications Medication Packaging Start Date St op Date Route Dosage Sig melatonin tablet 5 mg 01/02/2020 Oral 5 BEDT JESUS PRN OLANZapine (ZYPREXA) tablet 5 mg 01/02/2020 Oral 5 EVERY 2 HOURS PRN hydrOXYzine (ATARAX) tablet 50 mg 01/02/2020 Oral 50 EVERY 6 HOURS PRN magnesium hydroxide (MILK OF MAGNESIA) 400 MG/5ML suspension 30 mL 01/02/2020 Oral 30 DAILY PRN alum T mag hydroxide-simethi cone (MYLANTA) 200-200-20 MG/5ML liquid 30 mL 01/02/2020 O ral 30 EVERY 6 HOURS CO N acetaminophen (TYLENOL) tablet 650 mg 01/02/2020 Oral 650 EVERY 6 HOURS PRN nicotine polacrilex (NICORETTE) gum 2 mg 01/02/2020 Oral 2 EVERY 1 HOUR PRN nicotine polacrilex (COMMIT) lozenge 2 mg 01/02/2020 Oral 2 EVERY 1 HOUR PRN haloperidol (HALDOL) tablet 5 mg 01/02/2020 Oral 5 BEDTIME potassium chloride (KLOR-CON) CR tablet 10 mEq 01/02/2020 Oral 10 DAILY WITH BREAKFAST nicotine (NICODERM CQ) 14 MG/24HR 1 patch 01/02/2020 Transdermal 1 DAILY citalopram (CELEXA) tablet 20 mg 01/02/2020 Oral 20 DAILY fosfomycin (MONUROL) packet 3 g 01/02/2020 Oral 3 ONCE cetirizine (ZYRTEC) tablet 10 mg 01/02/2020 Oral 10 DAILY escitalopram (LEXAPRO) tablet 10 mg 01/02/2020 Oral 10 DAILY ondansetron (ZOFRAN-ODT) dis integrating tablet 4 mg 01/02/2020 Oral 4 EVERY 6 HOURS PRN famotidine (PEPCID) tablet 20 mg 01/02/2020 Oral 20 2 TIMES DAILY loperamide (IMODIUM) capsule 2 mg 01/02/2020 Oral 2 4 TIMES DAILY PRN pneumococcal poly 23 vaccine (PNEUMOVAX) injection 0.5 mL 01/03/2020 Intramuscular 0.5 Prior to discharge ergocalciferol (VITAMIN D) capsule 50,000 Units 01/07/2020 Oral 63311 WEEKLY Problems Date Dx Coded Attending Type Code Diagnosis Diagnosed By 12/08/2018 MARY JANE PEREZ MD, Ot M54.1 4 RADICULOPATHY, THORACIC REGION 12/08/2018 MARY JANE PEREZ MD, Ot M54.1 6 RADICULOPATHY, LUMBAR REGION 12/08/2018 MARY JANE PEREZ MD, Ot M54.6 PAIN IN THORACIC SPINE 12/08/2018 MARY JANE PEREZ MD, Ot Z88.8 ALLERGY STATUS TO OTH DRUG/MEDS/BIOL SUB 12/08/2018 MARY JANE PEREZ MD, Ot Z98.8 90 OTHER SPECIFIED POSTPROCEDURAL STATES 12/29/2018 LORETO METZGER Ot M79.672 PAIN IN LEFT FOOT 12/29/2018 LORETO METZGER Ot Z88.6 ALLERGY STATUS TO ANALGESIC AGENT STATUS 12/29/2018 LORETO METZGER Ot Z88.8 ALLERGY STATUS TO OTH DRUG/MEDS/BIOL SUB 12/29/2018 LORETO METZGER Ot Z98.51 TUBAL LIGATION STATUS 02/02/2019 MINDA SALINAS DO Ot G40.909 EPILEPSY, UNSP, NOT INTRACTABLE, WITHOUT 02/02/2019 MINDA SALINAS DO Ot R10. 33 PERIUMBILICAL PAIN 02/02/2019 MINDA SALINAS DO Ot Z88. 6 ALLERGY STATUS TO ANALGESIC AGENT STATUS 02/02/2019 MINDA SALINAS DO Ot Z88. 8 ALLERGY STATUS TO OTH DRUG/MEDS/BIOL SUB 02/02/2019 RITA CHA, MINDA T Ot Z98. 51 TUBAL LIGATION STATUS 02/02/2019 RITA CHA, MINDA T Ot Z98.890 OTHER [...] Ot Z98.51 TUBAL LIGATION STATUS 09/19/2019 ROVENSTINE DOCLEMENT Ot K52.9 NONINFECTIVE GASTROENTERITIS AND COLITIS 09/19/2019 ROVENSTINE DOCLEMENT Ot R11.2 NAUSEA WITH VOMITING, UNSPECIFIED 09/19/2019 ROVENSTINE CLEMENT CHA Ot Z88.6 ALLERGY STATUS TO ANALGESIC AGENT STATUS 09/19/2019 ROVENSTINE DOCLEMENT Ot Z88.8 ALLERGY STATUS TO OTH DRUG/MEDS/BIOL SUB 10/08/2019 DEANDRE KEVIN DO Ot J11 .1 FLU DUE TO UNIDENTIFIED INFLUENZA VIRUS 10/08/2019 DEANDRE KEVIN DO Ot R05 COUGH 10/08/2019 [facility], DEANDRE L Ot Z88 .6 ALLERGY STATUS TO ANALGESIC AGENT STATUS 10/08/2019 [facility], DEANDRE L Ot Z88 .8 ALLERGY STATUS TO OTH DRUG/MEDS/BIOL SUB 10/13/2019 [facility], DEANDRE L Ot J11 .1 FLU DUE TO UNIDENTIFIED INFLUENZA VIRUS 10/13/2019 [facility], DEANDRE L Ot R05 COUGH 10/13/2019 [facility], DEANDRE L Ot Z88 .6 ALLERGY STATUS TO ANALGESIC AGENT STATUS 10/13/2019 [facility], DEANDRE L Ot Z88 .8 ALLERGY STATUS TO OTH DRUG/MEDS/BIOL SUB 11/19/2019 CHLOE DO, BRITTANY H Ot G40.909 EPILEPSY, UNSP, NOT INTRACTABLE, WITHOUT 11/19/2019 CHLOE DO, BRITTANY H Ot J06.9 ACUTE UPPER RESPIRATORY INFECTION, UNSPE 11/19/2019 CHLOE DO, BRITTANY H Ot R0 5 COUGH 11/21/2019 [facility] DO, BRITTANY H Ot G40.909 EPILEPSY, UNSP, NOT INTRACTABLE, WITHOUT 11/21/2019 CHLOE DO, BRITTANY H Ot J06.9 ACUTE UPPER RESPIRATORY INFECTION, UNSPE 11/21/2019 [facility], BRITTANY H Ot R0 5 COUGH 11/29/2019 RUBEN SCOTT, KIMBERLY Stauffer Ot N92 .6 IRREGULAR MENSTRUATION, UNSPECIFIED 11/29/2019 RUBEN SCOTT, KIMBERLY Stauffer Ot N92 .6 IRREGULAR MENSTRUATION, UNSPECIFIED 12/06/2019 RUBEN SCOTT, KIMBERLY Stauffer Ot N92 .6 IRREGULAR MENSTRUATION, UNSPECIFIED 12/07/2019 O'DELL, RADU K FINAL INSPECTION SUPERVISOR Ot R10.33 PERIUMBILICAL PAIN 12/07/2019 O'DELL, RADU K FINAL INSPECTION SUPERVISOR Ot R91 .8 OTHER NONSPECIFIC ABNORMAL FINDING OF CAMILO 12/07/2019 O'DELL, RADU K FINAL INSPECTION SUPERVISOR Ot Z87.19 PERSONAL HISTORY OF OTHER DISEASES OF TH 12/20/2019 O'DELL, RADU K FINAL INSPECTION SUPERVISOR Ot R10.33 PERIUMBILICAL PAIN 12/20/2019 O'DELL, RADU K FINAL INSPECTION SUPERVISOR Ot R91 .8 OTHER NONSPECIFIC ABNORMAL FINDING OF CAMILO 12/20/2019 O'DELL, RADU K FINAL INSPECTION SUPERVISOR Ot Z87.19 PERSONAL HISTORY OF OTHER DISEASES OF TH 01/03/2020 ROCK, ELODIA V 160 555 Suicidal 01/03/2020 GABE SCOTT, DEANDRE Peralta Ot F32.9 MAJOR DEPRESSIVE DISORDER, SINGLE EPISOD 01/03/2020 GABE SCOTT, DEANDRE Peralta Ot R45.851 SUICIDAL IDEATIONS 01/03/2020 GABE SCOTT, DEANDRE Peralta Ot Z88.6 ALLERGY STATUS TO ANALGESIC AGENT STATUS 01/03/2020 GABE SCOTT, DEANDRE Peralta Ot Z88.8 ALLERGY STATUS TO OTH DRUG/MEDS/BIOL SUB 01/03/2020 GABE SCOTT, DEANDRE Peralta Ot F32.9 MAJOR DEPRESSIVE DISORDER, SINGLE EPISOD 01/03/2020 GABE SCOTT, DEANDRE Peralta Ot R45.851 SUICIDAL IDEATIONS 01/03/2020 GABE SCOTT, DEANDRE Peralta Ot Z88.6 ALLERGY STATUS TO ANALGESIC AGENT STATUS 01/03/2020 GABE SCOTT, DEANDRE Peralta Ot Z88.8 ALLERGY STATUS TO OTH DRUG/MEDS/BIOL SUB 01/03/2020 ROCK, ELODIA V F41 .9 Anxiety disorder, unspecified 01/03/2020 ROCK, ELODIA P F33 .2 Major depressive disorder, recurrent severe without psychotic features (HCC) 01/03/2020 ROCK, ELODIA F E55 .9 Vitamin D deficiency, unspecified 01/03/2020 ROCK, ELODIA F E87 .6 Hypokalemia 01/03/2020 ROCK, ELODIA F F17.210 Nicotine dependence, cigarettes, uncomplicated 01/03/2020 ROCK, ELODIA F F33 .2 Major depressive disorder, recurrent severe without psychotic features (HCC) 01/03/2020 ROCK, ELODIA F F41 .9 Anxiety disorder, unspecified 01/03/2020 ROCK, ELODIA F F79 Unspecified intellectual disabilities 01/03/2020 ROCK, ELODIA F F81 .9 Developmental disorder of scholastic skills, unspecified 01/03/2020 [place], ELODIA F F95 .2 Tourette's disorder 01/03/2020 ROCK, ELODIA F G43.909 Migraine, unspecified, not intractable, without status migrainosus 01/03/2020 R[place], ELODIA F J30 .2 Other seasonal allergic rhinitis 01/03/2020 R[place], ELODIA F K21 .9 Gastro-esophageal reflux disease without esophagitis 01/03/2020 ELODIA WILKERSON N39 .0 Urinary tract infection, site not specified 01/03/2020 ELODIA WILKERSON R31 .9 Hematuria, unspecified 01/03/2020 ELODIA WILKERSON Z23 Encounter for immunization 01/03/2020 ELODIA WILKERSON 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 Results Test [...] NRG STATEMENT OF ADEQUACY: NRG INTERPRETATION/RESULT: NRG STORAGE MANAGER: NRG COMMENT NRG Complete urinalysis with reflex [...] INFLUENZA A AND B ANTIGENS BY IA NRG Bacterial throat culture - 11/19/19 21:0 0 Bacterial throat culture NBS NRG UA W/ MICROSCOPY - 12/06/19 09:38 COLOR [...] g/dL 3.2-4.5 CALCIUM CORRECTED 9.9 mg/dL 8.5-10.1 THYROID STIMULATING HORMONE - 01/01/20 1 5:14 THYROID STIMULATING HORMONE 1.59 u[iU]/mL 0.35-4.94 Serum or plasma salicylates measurement (mass/volume) - [...] TIVE Urine propoxyphene detection NEGATIVE N EGATIVE Bacterial urine culture - 01/01/20 15:17 Bacterial urine culture 3 OR MORE NRG COLONY COUNT >100,000/ML NRG SUSCEPTIBILITY GRAM POSITIVES, SUGGESTING PROBABLE NRG MRSA SCREEN COLLECTION CONTAMINATION WITH SKIN AMBAR RA NRG RAPID ID NO SUSCEPTIBILITY PERFORMED N RG HCG, SERUM, QUALITATIVE - 01/02/20 05:41 HCG SERUM(QUAL) Negative mIU/mL Negative URINALYSIS, REFLEX CULTURE IF NEEDED - 0 01/02/20 09:49 APPEARANCE Turbid BACTERIA 1+ /ul BILIRUBIN UA Negative Negative CALCIUM OXYLATE CRYST 1+ COLOR Yellow GLUCOSE UA Negative Negative HEMOGLOBIN UA Negative Negative LEUKOCYTE ESTERASE UA 1+ Negative NITRATE UA Negative Negative PH UA 5.0 5.0-8.0 PROTEIN UA Negative Negative RBC UA 0-3 /hpf 0-3 SPECIFIC GRAVITY UA 1.026 1.003-1.03 0 SQUAMOUS EPITHELIAL 4+ /hpf UROBILINOGEN UA 0.2 EU/dL 0.2 WBC UA 11-20 /hpf 0-3 [id number] Negative Negative [id number] 1 /lpf Chlamydia trachomatis DNA detection by p robe and signal amplification method - 01/12/20 12:02 Chlamydia trachomatis DNA detection by p robe and target amplification method Not Detected Not Detected Neisseria gonorrhoeae DNA detection by p robe and signal amplification method - 01/12/20 12:02 Gonorrhea amp DNA-urine Not Detected No t Detected Encounters ACCT No. Visit Date/Time Discharge Status Pt. Type Provider Facility Loc./Unit Complaint [id number] 01/25/2020 13:00:00 01/25/2020 23:59:5 9 CLS Outpatient RONALDO MCCORMICK [facility] [id number] 12/06/2019 09:20:00 Document Registration [id number] 09/25/2019 15:30:00 Document Registration [id number] 05/11/2019 15:00:00 Document Registration [id number] 11/04/2018 15:00:00 Document Registration [id number] 01/02/2020 00:31:25 0 17:00:00 DIS Inpatient ELODIA WILKERSON [facility] [id number] 01/30/2020 17:56:00 19:31:00 DIS Emergency CHRIS SCOTT, MARY JANE Mc [facility] ER FS OVARIAN PAIN [id number] 01/12/2020 15:03:00 23:59:59 CLS Outpatient RUBEN SCOTT, KIMBERLY Stauffer [facility] LAB FS [id number] 01/01/2020 14:57:00 21:40:00 DIS Outpatient GABE SCOTT, DEANDRE Peralta [facility] ER FS SUICIDAL IDEATION [id number] 12/06/2019 09:45:00 23:59:59 CLS Outpatient RADU DOUGLAS APRN [facility] LAB FS PERIUMBILICAL ABD PAIN, HISTORY OF [facility] [id number] 11/28/2019 09:00:00 23:59:59 CLS Outpatient RUBEN SCOTT, KIMBERLY Stauffer [facility] LAB FS MISSED MENSES [id number] 11/19/2019 20:39:00 21:45:00 DIS Emergency CHLOE DOBRITTANY H [facility] ER FS COUGHH/SOB [id number] 10/08/2019 13:31:00 13:44:00 DIS Emergency KEVIN DO, DEANDRE L [facility] ER FS COUGESTION,COUGH,SORE T HROAT [id number] 09/19/2019 04:54:00 05:36:00 DIS Emergency ROVENSTMARILEE DOCLEMENT [facility] ER FS N/V/D [id number] 07/13/2019 21:15:00 23:42:00 DIS Emergency KEVIN SCOTT, SUDHEER Jimenez [facility] ER FS ABD PAIN [id number] 02/02/2019 19:43:00 21:08:00 DIS Emergency MINDA SALINAS DO T [facility] ER FS NAVEL PAIN [id number] 12/29/2018 15:48:00 16:55:00 DIS Emergency LORETO METZGER [facility] ER FOOT PAIN [id number] 12/07/2018 23:40:00 02:54:00 DIS Emergency MARY JANE PEREZ MD [facility] ER FS SPINAL PAIN [id number] 01/26/2020 14:41:59 ACT Unknown
== END 2020-01-30 19:31 | disposition home or self-care (01) ==
LOC: EDUNIT# 17:55 → ER FS 17:56
DX: G89.29 Other chronic pain (principal); R10.2 Pelvic and perineal pain; N93.8 Other specified abnormal uterine and vaginal bleeding; F17.210 Nicotine dependence, cigarettes, uncomplicated; Z88.8 Allergy status to other drugs, medicaments and biological substances; Z88.6 Allergy status to analgesic agent
CPT/HCPCS: 99284

== ENCOUNTER 2020-01-31 22:03 | Emergency (ER) | payer MEDICAID ==
[~2020-01-31] VITALS: Ht 157 cm; Wt 97.7 kg
--- OUTSIDE RECORDS SUMMARY | 2020-01-31 22:09 | XMS REPORT | Continuity of Care Document ---
Author Organization Unknown Address Unknown Phone Unavailable Allergies Active Description Code Type Severity Reaction Onset Reported/Identified Relationship to Patient Clinical Status Yes ANTIHISTAMINES ANTIHISTAMINES Unknown N/A 12/08/2018 Yes ASA ASA Unknown N/A 12/08/2018 Yes phenobarbital [id number] Vlad g Allergy Unknown N/A 12/08/2018 Yes ASPIRIN 49153 DRUG INGREDI N/A Other 01/02/2020 01/02/2020 Yes DIPHENHYDRAMINE 64131 DRUG INGRED I N/A Other 01/02/2020 01/02/2020 Yes PHENOBARBITAL 85445 DRUG INGREDI N/A Other 01/02/2020 01/02/2020 Medications [...] 01/02/2020 O ral 30 EVERY 6 HOURS MS N acetaminophen (TYLENOL) tablet 650 mg 01/02/2020 [...] (VITAMIN D) capsule 50,000 Units 01/07/2020 Oral 00989 WEEKLY Problems Date Dx Coded Attending Type Code Diagnosis Diagnosed By 12/08/2018 MARY JANE PEREZ MD, Ot M54.1 4 RADICULOPATHY, THORACIC REGION 12/08/2018 MARY AJNE PEREZ MD, Ot M54.1 6 RADICULOPATHY, LUMBAR [...] DEANDRE KEVIN DO Ot R05 COUGH 10/08/2019 [facility], DEANDRE L Ot Z88 .6 ALLERGY STATUS TO ANALGESIC AGENT STATUS 10/08/2019 [facility], DEANDRE L Ot Z88 .8 ALLERGY STATUS TO OTH DRUG/MEDS/BIOL SUB 10/13/2019 [facility], DEANDRE L Ot J11 .1 FLU DUE TO UNIDENTIFIED INFLUENZA VIRUS 10/13/2019 [facility], DEANDRE L Ot R05 COUGH 10/13/2019 [facility], DEANDRE L Ot Z88 .6 ALLERGY STATUS TO ANALGESIC AGENT STATUS 10/13/2019 [facility], DEANDRE L Ot Z88 .8 ALLERGY STATUS TO OTH DRUG/MEDS/BIOL SUB 11/19/2019 CHLOE DO, BRITTANY H Ot G40.909 EPILEPSY, UNSP, NOT INTRACTABLE, WITHOUT 11/19/2019 CHLOE DO, BRITTANY H Ot J06.9 ACUTE UPPER RESPIRATORY INFECTION, UNSPE 11/19/2019 CHLOE DO, BRITTANY H Ot R0 5 COUGH 11/21/2019 [facility] DO, BRITTANY H Ot G40.909 EPILEPSY, UNSP, NOT INTRACTABLE, WITHOUT 11/21/2019 CHLOE DO, BRITTANY H Ot J06.9 ACUTE UPPER RESPIRATORY INFECTION, UNSPE 11/21/2019 [facility], BRITTANY H Ot R0 5 COUGH 11/29/2019 RUBEN SCOTT, KIMBERLY Stauffer Ot N92 .6 IRREGULAR MENSTRUATION, UNSPECIFIED 11/29/2019 RUBEN SCOTT, KIMBERLY Stauffer Ot N92 .6 IRREGULAR MENSTRUATION, UNSPECIFIED 12/06/2019 RUBEN SCOTT, KIMBERLY Stauffer Ot N92 .6 IRREGULAR MENSTRUATION, UNSPECIFIED 12/07/2019 O'DELL, RADU K QUALITY MANAGEMENT NURSE Ot R10.33 PERIUMBILICAL PAIN 12/07/2019 O'DELL, RADU K QUALITY MANAGEMENT NURSE Ot R91 .8 OTHER NONSPECIFIC ABNORMAL FINDING OF CAMILO 12/07/2019 O'DELL, RADU K QUALITY MANAGEMENT NURSE Ot Z87.19 PERSONAL HISTORY OF OTHER DISEASES OF TH 12/20/2019 O'DELL, RADU K QUALITY MANAGEMENT NURSE Ot R10.33 PERIUMBILICAL PAIN 12/20/2019 O'DELL, RADU K QUALITY MANAGEMENT NURSE Ot R91 .8 OTHER NONSPECIFIC ABNORMAL FINDING OF CAMILO 12/20/2019 O'DELL, RADU K QUALITY MANAGEMENT NURSE Ot Z87.19 PERSONAL HISTORY OF OTHER DISEASES [...] immunization 01/03/2020 ELODIA WILKERSON Z79.899 Other exterminator termite (current) drug therapy 01/03/2020 ELODIA WILKERSON Z91 [...] NRG STATEMENT OF ADEQUACY: NRG INTERPRETATION/RESULT: NRG SECURITY STRATEGIST: NRG COMMENT NRG Complete urinalysis with reflex [...] EU/dL 0.2 WBC UA 11-20 /hpf 0-3 [id number] Negative Negative [id number] 1 /lpf Chlamydia trachomatis DNA detection by [...] Status Pt. Type Provider Facility Loc./Unit Complaint [id number] 01/31/2020 09:00:00 ACT Outpatient RONALDO MCCORMICK [facility] [id number] 12/06/2019 09:20:00 Document Registration [id number] 09/25/2019 15:30:00 Document Registration [id number] 05/11/2019 15:00:00 Document Registration [id number] 11/04/2018 15:00:00 Document Registration [id number] 01/02/2020 00:31:25 0 17:00:00 DIS Inpatient ROCKELODIA QUILES [facility] [id number] 01/30/2020 17:56:00 19:31:00 DIS Emergency CHRIS SCOTT, MARY JANE Mc [facility] ER FS OVARIAN PAIN [id number] 01/12/2020 15:03:00 23:59:59 CLS Outpatient RUBEN SCOTT, KIMBERLY Stauffer [facility] LAB FS [id number] 01/01/2020 14:57:00 21:40:00 DIS Outpatient GABE SCOTT, DEANDRE Peralta [facility] ER FS SUICIDAL IDEATION [id number] 12/06/2019 09:45:00 23:59:59 CLS Outpatient RADU DOUGLAS APRN [facility] LAB FS PERIUMBILICAL ABD PAIN, HISTORY OF [facility] [id number] 11/28/2019 09:00:00 23:59:59 CLS Outpatient RUBEN SCOTT, KIMBERLY Stauffer [facility] LAB FS MISSED MENSES [id number] 11/19/2019 20:39:00 21:45:00 DIS Emergency CHLOE DOBRITTANY H [facility] ER FS COUGHH/SOB [id number] 10/08/2019 13:31:00 13:44:00 DIS Emergency KEVIN DO, DEANDRE L [facility] ER FS COUGESTION,COUGH,SORE T HROAT [id number] 09/19/2019 04:54:00 05:36:00 DIS Emergency ROVENSTINE DO, CLEMENT Sal [facility] ER FS N/V/D [id number] 07/13/2019 21:15:00 23:42:00 DIS Emergency SUDHEER BROWN MD [facility] ER FS ABD PAIN [id number] 02/02/2019 19:43:00 21:08:00 DIS Emergency MINDA SALINAS DO T [facility] ER FS NAVEL PAIN [id number] 12/29/2018 15:48:00 16:55:00 DIS Emergency DOMENICA LORETO [facility] ER FOOT PAIN [id number] 12/07/2018 23:40:00 02:54:00 DIS Emergency MARY JANE PEREZ MD [facility] ER FS SPINAL PAIN [id number] 01/26/2020 14:41:59 ACT Unknown
[2020-01-31 22:48] LABS: BILIRUBIN,URINE NEGATIVE (NEGATIVE); COLOR,URINE YELLOW; GLUCOSE, URINE (UA) NEGATIVE (NEGATIVE); KETONES,URINE NEGATIVE (NEGATIVE); LEUKOCYTE ESTERASE ,URINE TRACE (NEGATIVE); NITRITE,URINE NEGATIVE (NEGATIVE); PROTEIN,URINE NEGATIVE (NEGATIVE)
[2020-01-31 22:55] LABS: BACTERIA,URINE TRACE /HPF; CLARITY,URINE CLEAR; WBC,URINE 0-2 /HPF
[2020-01-31 22:58] LABS: BENZODIAZEPINES SCREEN URINE NEGATIVE (NEGATIVE)
[2020-01-31 22:59] LABS: AMPHETAMINE SCREEN, URINE NEGATIVE (NEGATIVE); BARBITURATE SCREEN URINE NEGATIVE (NEGATIVE); CANNABINOID SCREEN, URINE NEGATIVE (NEGATIVE); COCAINE SCREEN URINE NEGATIVE (NEGATIVE); METHADONE STAT NEGATIVE (NEGATIVE); METHAMPHETAMINE SCREEN URINE S NEGATIVE (NEGATIVE); OPIATE SCREEN URINE POSITIVE (NEGATIVE); OXYCODONE STAT NEGATIVE (NEGATIVE); PROPOXYPHENE STAT NEGATIVE (NEGATIVE); TRICYCLIC ANTIDEPRESSANTS SCRE NEGATIVE (NEGATIVE)
--- NOTE | 2020-01-31 23:10 | ED GU-Female ---
General Chief Complaint: Abdominal/GI Problems Stated Complaint: PELVIC PAIN Nursing Triage Note: Pt to [facility] with c/o suprapubic pain x 1.5 months. Pt states she has been seen in PCP office and 2 other doctors and wishes to have a hysterectomy but her OBGYN refuses. Pt was prescribed hydrocodone and tylenol with codeine without any relief. Nursing Sepsis Screen: No Definite Risk Source: patient (GIVES CONFLICTING INFORMATION), old records History of Present Illness Date Seen by Provider: Jan 31, 2020 Time Seen by Provider: 23:30 Initial Comments PT ARRIVES VIA POV FROM HOME IN [facility] PT STATES "I HAVE SHARP SEVERE PAINS IN MY REPRODUCTIVE ORGANS-IN MY OVARIES AND UTERUS" STATES THIS HAS BEEN GOING ON FOR 1 1/2 MONTHS (PT LATER ADMITS THAT THIS HAS ALL ACTUALLY BEEN GOING ON FOR 14 YEARS, SINCE SHE HAD BTL IN 2004--STATES "ALL MY PROBLEMS STARTED THEN" AND SYMPTOMS ARE NO DIFFERENT TONIGHT IN ANY WAY) PT STATES SHE HAS BEEN BLEEDING HEAVILY FOR THE LAST 1 1/2 MONTHS--STATES "EVERY DAY I HAVE BLEEDING AND I GO THROUGH A WHOLE PACK OF 28 PADS EVERY 10 MINUTES ALL DAY EVERY DAY FOR THE LAST 1 1/2 MONTHS" STATES SHE HAS GONE THROUGH A "WHOLE PACK OF 28 PADS TODAY" SYMPTOMS ARE NO DIFFERENT IN ANY WAY TODAY PT HAS SEEN MULTIPLE PROVIDERS FOR THIS PROBLEM, MOST RECENTLY SHE HAS SEEN DR. STERLING ( [employer]), DR. MIRANDA, PROVIDER IN [place], [place], AND MULTIPLE ER VISITS TO [facility], INCLUDING YESTERDAY--ALL FOR SAME COMPLAINTS WORK UP'S HAVE BEEN NEGATIVE, INCLUDING LAB AND MOST RECENT ULTRASOUND DONE 01/17/20 AT [facility], ACCORDING TO PT. PT HAD ABDOMINAL XRAYS AND CT SCAN DONE 12/06/19-NO ACUTE PROCESS, OTHER THAN NON-INCARCERATED UMBILICAL HERNIA PT WAS SEEN BY DR. STERLING THIS MORNING FOR THIS PROBLEM PT STATES HE PUT HER ON ORLISSA AND "TYLENOL 3" 10-14 DAYS AGO, AND STATES "IT DOESN'T HELP AT ALL ( LATER STATES SHE HAS BEEN TAKING HYDROCODONE ) STATES HE REFERRED HER TO A UROLOGIST AND HAS AN APPOINTMENT THIS Wednesday02/02/20 AT 2:20 TO SEE HIM AFTER ADVISING PT THAT I WOULD NOT BE GIVING HER ANY PAIN MEDICATIONS, AND ASKING HER WHAT SHE HOPED TO GAIN BY AN ER VISIT HERE TONIGHT, SHE NOW STATES "I DON'T WANT ANY PAIN MEDICINES", THEN STATES SHE IS HERE "BECAUSE I JUST THOUGHT YOU COULD GIVE ME ANOTHER OPINION" PT HAD REPORTED TO RN AT TRIAGE AND TO ME, THAT "DR STERLING REFUSES TO DO A HYSTERECTOMY"; HOWEVER, ON REVIEW OF ER RECORD FROM [facility] YESTERDAY, PT HAD REPORTED TO THEM THAT SHE HAD A HYSTERECTOMY SCHEDULED BY DR. STERLING ON FEBRUARY 21, BUT "THAT WASN'T SOON ENOUGH" SHE ALSO REPORTED ON [facility] ER RECORD, THAT SHE WAS NOT HAVING ANY HEAVY VAGINAL BLEEDING. Allergies and Home Medications Allergies Coded Allergies: phenobarbital (Verified Allergy, Unknown, 12/08/18) Uncoded Allergies: ANTIHISTAMINES (Allergy, Unknown, 12/08/18) ASA (Allergy, Unknown, 12/08/18) Home Medications Baloxavir Marboxil 40 Mg Tablet, 80 MG PO ONCE Prescribed by: DEANDRE KEVIN on 10/08/19 1337 Benzonatate 100 Mg Capsule, 200 MG PO TID PRN for COUGH Prescribed by: DEANDRE KEVIN on 10/08/19 1340 Hyoscyamine Sulfate 0.125 Mg Tab.subl, 0.125 MG SL Q4H Prescribed by: SUDHEER BROWN on 07/13/19 2319 Hyoscyamine Sulfate 0.125 Mg Tab.subl, 0.125 MG SL Q8H Prescribed by: CLEMENT HOPKINS on 09/19/19 0530 Ibuprofen 800 Mg Tablet, 800 MG PO Q8H PRN for PAIN-MILD Prescribed by: DEANDRE KEVIN on 10/08/19 1340 Ondansetron 4 Mg Tab.rapdis, 4 MG PO Q6H Prescribed by: CLEMENT HOPKINS on 09/19/19 0530 Oseltamivir Phosphate 75 Mg Cap, 75 MG PO BID Prescribed by: DEANDRE KEVIN on 10/08/19 1337 Patient Home Medication List Home Medication List Reviewed: Yes Review of Systems Review of Systems Constitutional: no symptoms reported Respiratory: no symptoms reported Cardiovascular: no symptoms reported Gastrointestinal: see HPI; No nausea, No vomiting Genitourinary: see HPI : No LMP: Feb 01, 2020 (ONGOING FOR 1 1/2 MONTHS, ACCORDING TO PT) Musculoskeletal: no symptoms reported; No back pain Skin: no symptoms reported Psychiatric/Neurological: No Symptoms Reported Endocrine: No Symptoms Reported Hematologic/Lymphatic: No Symptoms Reported Past Dktvitm-Ijtekj-Kyjwni Hx Past Med/Social Hx: Reviewed and Corrections made Patient Social History Alcohol Use: Rarely Uses Recreational Drug Use: No Smoking Status: Current Everyday Smoker Type Used: Cigarettes 2nd Hand Smoke Exposure: Yes Recent Foreign Travel: No Contact w/Someone Who Travel: No Recent Infectious Disease Expo: No Recent Hopitalizations: No Physical Abuse: No Sexual Abuse: No Mistreated: No Fear: No Seasonal Allergies Seasonal Allergies: No Past Medical History Surgeries: Yes (UMBILICAL HERNIA REPAIR) Abdominal, Gallbladder, Tubal Ligation Respiratory: No Cardiac: No Neurological: Yes Seizure Disorder Reproductive Disorders: Yes (CHRONIC PELVIC PAIN AND IRREGULAR AND HEAVY BLEEDING ACCORDING TO PT) Female Reproductive Disorders: Menstrual Problems 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 oz. [id number]; 39.00 BMI Method:Stated General Appearance: no apparent distress, obese, other (WALKS UPRIGHT AND MOVES QUICKLY WITH OUT DIFFICULTY. LAYS COMPLETELY OUTSTRETCHED, DOES NOT APPEAR TO BE IN ANY DISCOMFORT OR DISTRESS. 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 nml as tested, no motor/sensory deficits, alert, oriented x 3 Skin: normal color, warm/dry Progress/Results/Core Measures Suspected Sepsis Recent Fever Within 48 Hours: No Infection Criteria Present: None New/Unexplained Altered Menta: No Sepsis Screen: No Definite Risk SIRS Temperature: Pulse: 86 Respiratory Rate: 17 Laboratory Tests 01/31/20 23:25: White Blood Count 8.4 Blood Pressure 147 /105 Mean: 119 Laboratory Tests 01/31/20 23:25: Platelet Count 326 Results/Orders Lab Results Laboratory Tests Test 01/31/20 22:33 01/31/20 23:25 Range/Units Urine Color YELLOW Urine Clarity CLEAR Urine pH 6.0 5-9 Urine Specific Newcomb <=1.005 1.016-1.022 Urine Protein NEGATIVE NEGATIVE Urine Glucose (UA) NEGATIVE NEGATIVE Urine Ketones NEGATIVE NEGATIVE Urine Nitrite NEGATIVE NEGATIVE Urine Bilirubin NEGATIVE NEGATIVE Urine Urobilinogen 0.2 < = 1.0 MG/DL Urine Leukocyte Esterase TRACE H NEGATIVE Urine RBC (Auto) NEGATIVE NEGATIVE Urine RBC NONE /HPF Urine WBC 0-2 /HPF Urine Squamous Epithelial Cells 5-10 /HPF Urine Crystals NONE /LPF Urine Bacteria TRACE /HPF Urine Casts NONE /LPF Urine Mucus NEGATIVE /LPF Urine Culture Indicated NO Urine Opiates Screen POSITIVE H NEGATIVE Urine Oxycodone Screen NEGATIVE NEGATIVE Urine Methadone Screen NEGATIVE NEGATIVE Urine Propoxyphene Screen NEGATIVE NEGATIVE Urine Barbiturates Screen NEGATIVE NEGATIVE Ur Tricyclic Antidepressants Screen NEGATIVE NEGATIVE Urine Phencyclidine Screen NEGATIVE NEGATIVE Urine Amphetamines Screen NEGATIVE NEGATIVE Urine Methamphetamines Screen NEGATIVE NEGATIVE Urine Benzodiazepines Screen NEGATIVE NEGATIVE Urine Cocaine Screen NEGATIVE NEGATIVE Urine Cannabinoids Screen NEGATIVE NEGATIVE White Blood Count 8.4 4.3-11.0 10^3/uL Red Blood Count 4.36 4.35-5.85 10^6/uL Hemoglobin 14.3 11.5-16.0 G/DL Hematocrit 42 35-52 % Mean Corpuscular Volume 95 80-99 FL Mean Corpuscular Hemoglobin 33 25-34 PG Mean Corpuscular Hemoglobin Concent 34 32-36 G/DL Red Cell Distribution Width 12.8 10.0-14.5 % Platelet Count 326 130-400 10^3/uL Mean Platelet Volume 10.3 7.4-10.4 FL My Orders Orders - JUAN ALBERTO CISNEROS DO Drug Screen Stat (Urine) (01/31/20 22:29) Ua Culture If Indicated (01/31/20 22:29) Urine Bedside (01/31/20 22:29) Cbc No Diff (01/31/20 23:08) Vital Signs/I&O 01/31/20 01/31/20 22:24 23:39 Temp 36.9 36.9 Pulse 86 86 Resp 17 17 B/P (MAP) 147/105 (119) 135/92 (119) Pulse Ox 99 99 O2 Delivery Room Air Capillary Refill : Less Than 3 Seconds Blood Pressure Mean: 119 Progress Note : Progress Note ADVISED PT THAT I WOULD NOT BE DOING ANY XRAYS OR CT SCAN, HER SYMPTOMS ARE NOT ACUTE, AND ULTRASOUND IS NOT AVAILABLE HERE AT THIS TIME, AND SHE REPORTS SHE HAD A NORMAL ULTRASOUND IN [place] ON 01/17/20. DID NOT GO THROUGH ANY PADS DURING ER STAY Departure Impression Primary Impression: Chronic pelvic pain in female Disposition: HOME, SELF-CARE Condition: Stable Departure-Patient Inst. Referrals: RONALDO MCCORMICK MD (PCP/Family) Primary Care Physician ANICETO STERLING DO Patient Instructions: Chronic Pelvic Pain (DC) Add. Discharge Instructions: CONTINUE YOUR MEDICATIONS PRESCRIBED KEEP YOUR APPOINTMENT WITH UROLOGIST ON WEDNESDAY FOLLOW UP WITH DR. STERLING NEXT WEEK FOR FURTHER CARE All discharge instructions reviewed with patient and/or family. Voiced understanding. JUAN ALBERTO CISNEROS DO Jan 31, 2020 23:10
[2020-01-31 23:32] LABS: HEMOGLOBIN 14.3 G/DL (11.5-16.0); MEAN PLATELET VOLUME 10.3 FL (7.4-10.4); RED CELL DISTRIBUTION WIDTH 12.8 % (10.0-14.5); WHITE BLOOD COUNT 8.4 10^3/uL (4.3-11.0)
[2020-01-31 23:39] VITALS: BP 135/92
== END 2020-01-31 23:40 | disposition home or self-care (01) ==
LOC: EDUNIT# 22:03 → ER 22:04
DX: G89.29 Other chronic pain (principal); R10.2 Pelvic and perineal pain; F17.210 Nicotine dependence, cigarettes, uncomplicated; Z88.6 Allergy status to analgesic agent; Z88.8 Allergy status to other drugs, medicaments and biological substances
CPT/HCPCS: 36415; 80306; 81000; 84703; 85027

== ENCOUNTER 2020-05-19 20:51 | Emergency (ER) | payer SELFPAY ==
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
[2020-05-19] MEDS ORDERED: KETOROLAC 60 MG/2 ML VIAL IM STA (21:54)
[2020-05-19 22:33] VITALS: BP 149/94
--- NOTE | 2020-05-20 07:31 | Diagnostic Imaging Report ---
EXAMINATION: Right knee 3 views HISTORY: Trauma COMPARISON: None available. 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 No fracture is seen. Joint spaces are normal. No joint effusion. Alignment is normal. IMPRESSION: 1. No fracture. Dictated by: Dictated on workstation # [id number]
== END 2020-05-19 22:35 | disposition home or self-care (01) ==
LOC: EDUNIT# 20:51 → ER FS 20:54
DX: S83.91XA Sprain of unspecified site of right knee, initial encounter (principal); S00.83XA Contusion of other part of head, initial encounter; S00.03XA Contusion of scalp, initial encounter; G43.009 Migraine without aura, not intractable, without status migrainosus; Z77.22 Contact with and (suspected) exposure to environmental tobacco smoke (acute) (chronic); Z88.8 Allergy status to other drugs, medicaments and biological substances; X50.1XXA Overexertion from prolonged static or awkward postures, initial encounter; Y92.009 Unspecified place in unspecified non-institutional (private) residence as the place of occurrence of the external cause
CPT/HCPCS: 73562; L1830

== ENCOUNTER 2020-07-09 15:50 | Outpatient (RCR) | payer MEDICAID ==
[~2020-07-09] VITALS: Ht 157 cm; Wt 100.9 kg
[~2020-07-09 15:50] MED LIST changes: +ESCI20TA PO; +HALO0.5T PO; +MULT-1136 PO; +PANT40TA2 PO
== END 2020-07-09 15:52 | disposition home or self-care (01) ==
LOC: PREOP 15:50
PROVIDERS: ATTEND Obstetrics & Gynecology
DX: Z01.812 Encounter for preprocedural laboratory examination (principal); N94.6 Dysmenorrhea, unspecified

== ENCOUNTER → 2020-07-10 | Outpatient (CLI) | payer MEDICAID ==
[~2020-07-10] MED LIST changes: +ACHD5005 PO; +IBUP-1773 PO
== END ==
LOC: LAB FS 10:30
PROVIDERS: ATTEND Obstetrics & Gynecology
DX: Z01.812 Encounter for preprocedural laboratory examination (principal); Z20.828 Contact with and (suspected) exposure to other viral communicable diseases
CPT/HCPCS: 87635

== ENCOUNTER 2020-07-15 08:29 | Day surgery (SDC) | payer MEDICAID ==
[2020-07-15] VITALS (10 sets, daily range): BP systolic 92–127; BP diastolic 59–94
[~2020-07-15] VITALS: Ht 157 cm; Wt 100.9 kg
[~2020-07-15 08:29] MED LIST changes: -ACHD5005 PO; -IBUP-1773 PO
[2020-07-15] MEDS ORDERED: BUPIVACAINE 0.25% 30 ML (SENSORCAINE) VIAL ONE (08:56)
[2020-07-15] MEDS ORDERED: ONDANSETRON 4 MG/2 ML (SDV) Z0FRAN ONE ×2 (09:09→11:02)
[2020-07-15] MEDS ORDERED: FAMOTIDINE 20MG/2ML IV (PEPCID) ONE (09:09)
[2020-07-15] MEDS ORDERED: ONDANSETRON 4 MG/2 ML (SDV) Z0FRAN IV ONE ×2 (09:15→09:45)
[2020-07-15] MEDS: LACTATED RINGERS 1,000 ML IV PRN ×2 (09:15→11:18)
[2020-07-15] MEDS ORDERED: FAMOTIDINE 20MG/2ML IV (PEPCID) IV ONE ×2 (09:15→09:45)
[2020-07-15] MEDS ORDERED: fentaNYL INJECTION 100 MCG/2 ML AMP ONE (09:33)
[2020-07-15] MEDS ORDERED: MIDAZOLAM 2 MG/2 ML (VERSED) VIAL ONE (09:33)
[2020-07-15 09:55] LABS: BASOPHILS # (AUTO) 0.1 10^3/uL (0.0-0.1); BASOPHILS % (AUTO) 1 % (0-10); EOSINOPHILS # (AUTO) 0.4 10^3/uL (0.0-0.3); EOSINOPHILS % (AUTO) 4 % (0-10); HEMATOCRIT 40 % (35-52); HEMOGLOBIN 13.4 g/dL (11.5-16.0); LYMPHOCYTES # (AUTO) 2.6 10^3/uL (1.0-4.0); LYMPHOCYTES % (AUTO) 26 % (12-44); MEAN CORPUSCULAR HEMOGLOBIN 32 pg (25-34); MEAN CORPUSCULAR HGB CONC 34 g/dL (32-36); MEAN CORPUSCULAR VOLUME 96 fL (80-99); MEAN PLATELET VOLUME 10.4 fL (9.0-12.2); MONOCYTES # (AUTO) 0.9 10^3/uL (0.0-1.0); MONOCYTES % (AUTO) 9 % (0-12); NEUTROPHILS % (AUTO) 60 % (42-75); PLATELET COUNT 367 10^3/uL (130-400); WHITE BLOOD COUNT 9.9 10^3/uL (4.3-11.0)
--- NOTE | 2020-07-15 10:21 | Progress Note-Pre Operative ---
Pre-Operative Progress Note H&P Reviewed The H&P was reviewed, patient examined and no changes noted. Date Seen by Provider: Jul 15, 2020 Time Seen by Provider: 10:15 Date H&P Reviewed: Jul 15, 2020 Time H&P Reviewed: 10:15 Pre-Operative Diagnosis: CPP, Dyspareunia GUNNAR DUBON DO Jul 15, 2020 10:21
[2020-07-15] MEDS ORDERED: D5 LR IV SOLUTION 1,000 ML IV SCH (10:22)
--- NOTE | 2020-07-15 10:25 | Discharge Inst-Women's Service ---
Discharge Inst-Women's Serv Depart Medication/Instructions New, Converted or Re-Newed RX: RX on Chart Problems Reviewed?: Yes Consults/Follow Up Additional Follow Up: Yes Orders/Referrals Dr. Barnett or Telma in 7-10 days Activity Activity: Activity as Tolerated Driving Instructions: No Driving for 1 Week NO SMOKING: NO SMOKING Nothing Inside Vagina: No Douching, No Navy, No Tampons Diet Discharge Diet: No Restrictions Symptoms to Report to : Bleeding Excessive, Pain Increased, Fever Over 101 Degrees F, Vaginal Bleeding Increase, Questions/Concerns For Any Problems or Questions: Contact Your Physician Skin/Wound Care Infection Signs and Symptoms: Increased Redness, Foul Odor of Wound, Increased Drainage, Skin Itchy or Has a Rash, Increased Swelling, Temperature Above 101 F Operative Area Clean and Dry: Keep Incision Clean/Dry Stitches/Dori/Dermabond: Dermabond, Care of Stitches Bathing Instructions: GUNNAR Aguila DO Jul 15, 2020 10:25
[2020-07-15] MEDS ORDERED: IBUP-1773 PO (10:26)
[2020-07-15] MEDS ORDERED: ACHD5005 PO (10:26)
[2020-07-15] MEDS ORDERED: KETOROLAC 30 MG/ML VIAL IVP ONE (10:30)
[2020-07-15] MEDS ORDERED: ONDANSETRON 4 MG/2 ML (SDV) Z0FRAN IVP PRN ×2 (10:30→11:30)
[2020-07-15] MEDS ORDERED: HYDROcodone/APAP 5 MG/325 MG (LORTAB) TAB PO PRN (10:30)
[2020-07-15] MEDS ORDERED: NEOSTIGMINE 3 MG/3 ML VIAL ONE (11:02)
[2020-07-15] MEDS ORDERED: SEVOFLURANE (ULTANE) 15 ML INHAL SOLN ONE (11:02)
[2020-07-15] MEDS ORDERED: proPOfol 200 MG/20 ML (DIPRIVAN) VIAL IV ONE (11:02)
[2020-07-15] MEDS ORDERED: LIDOCAINE PF 2% 5 ML (XYLOCAINE) VIAL ONE (11:02)
[2020-07-15] MEDS ORDERED: ROCURONIUM 10 MG/ML 5 ML SYRINGE IV ONE (11:02)
[2020-07-15] MEDS ORDERED: GLYCOPYRROLATE 0.2 MG/ML (ROBINUL) 2 ML VIAL ONE (11:02)
[2020-07-15] MEDS ORDERED: PROPOFOL INJECTION 50 ML IV ONE (11:02)
[2020-07-15] MEDS ORDERED: SUGAMMADEX 500 MG/5 ML VIAL (BRIDION) IV ONE (11:05)
[2020-07-15] MEDS ORDERED: fentaNYL INJECTION 100 MCG/2 ML AMP IVP ONE (11:30)
[2020-07-15] MEDS ORDERED: morphine INJ 10 MG/ML 1ML (SYR OR VIAL) IVP ONE (11:30)
[2020-07-15] MEDS ORDERED: MEPERIDINE (DEMEROL) INJ 50 MG/ML IVP ONE (11:30)
[2020-07-15] MEDS ORDERED: KETOROLAC 30 MG/ML VIAL ONE (11:33)
[2020-07-15] MEDS ORDERED: morphine INJ 10 MG/ML 1ML (SYR OR VIAL) ONE (11:33)
--- NOTE | 2020-07-15 12:34 | Anesthesia-General Post-Op ---
General Patient Condition Mental Status/LOC: Same as Preop Cardiovascular: Satisfactory Nausea/Vomiting: Absent Respiratory: Satisfactory Pain: Controlled Complications: Absent Post Op Complications Complications None Follow Up Care/Instructions Patient Instructions None needed. Anesthesia/Patient Condition Patient Condition Patient is doing well, no complaints, stable vital signs, no apparent adverse anesthesia problems. No complications reported per nursing. KATELIN ALSTON CRNA Jul 15, 2020 12:34
--- NOTE | 2020-07-15 19:20 | OPERATIVE REPORT ---
DATE OF SERVICE: PREOPERATIVE DIAGNOSES: 1. A 35-year-old female with chronic pelvic pain. 2. Dyspareunia. POSTOPERATIVE DIAGNOSES: 1. A 35-year-old female with chronic pelvic pain. 2. Dyspareunia. PROCEDURE: Operative laparoscopy with lysis of adhesions less than 30 minutes. ANESTHESIA: General LMA. ESTIMATED BLOOD LOSS: Minimal. URINE OUTPUT: 200 mL clear at the end of procedure. FLUIDS: 1000 mL lactated Ringer's solution. FINDINGS: Grossly normal-appearing external female genitalia. Normal appearing vagina and cervix. Filmy and dense adhesions of the omentum to the uterus, anterior vesicouterine peritoneum and posterior cul-de-sac as well as the left infundibulopelvic ligament. SPECIMEN SENT: None. INDICATIONS FOR PROCEDURE: This 35-year-old female patient had self-consulted for ongoing issues with pelvic pain and discomfort. She reported that she also could not have intercourse. We discussed with the patient the possibility of endometriosis as her ultrasound was negative for any type of imaging and pathology. After all of her questions were answered, she wished to proceed with diagnostic laparoscopy to rule out endometriosis or any other causes of her pain that could not be picked up with imaging. Risks of the procedure were discussed with the patient in detail and after all her questions were answered, consent was obtained in the preoperative area, the patient was taken to the operating room. OPERATIVE REPORT IN DETAIL: Once in the operating room, anesthesia was found to be adequate. She was placed in the dorsal lithotomy position, prepped and draped in normal sterile fashion. A timeout was performed. A weighted speculum inserted to the patient's vagina. Packer catheter was placed using sterile technique. A right angle retractor was used to visualize the cervix, which was grasped at 12 o'clock position using long Allis clamp. I then placed a Kronner uterine manipulator. After I sounded the uterine cavity depth to 8 cm, I placed a Kronner uterine manipulator to the 8 cm cavity depth deploying the balloon. I then removed all the other instruments from the patient's vagina. I performed a change of gloves and took my attention to the abdomen where infraumbilically, I infiltrated this area using 0.25% Marcaine and made a 5 mm incision with a knife and directed Veress needle through the incision until intraperitoneal placement was confirmed using saline drop test. An opening pressure 4 mmHg was noted, proceeded to maximum pressure of 15 mmHg using CO2 gas for my insufflation. I then removed the Veress needle and introduced a 5 mm laparoscopic trocar into the incision until intraperitoneal placement was confirmed using the laparoscope. I then identified that the upper abdominal anatomy appears to be grossly normal with the patient placed in steep Trendelenburg, I am able to visualize all my pelvic anatomy described in my findings above. I placed a suprapubic trocar in similar fashion to my infraumbilical trocar by infiltrating the skin and making an incision with a knife and the trocars were placed under direct visualization of laparoscope. Once this trocar was in place, using the EndoShears, I am able to take down these adhesions of the anterior abdominal wall both right and left infundibulopelvic ligament, freeing up the bowel and omentum from the pelvis and allowing it to move freely. After which the uterus, bilateral fallopian tubes and ovaries appeared grossly normal with the exception of a segmental salpingectomy from previous tubal performed on the patient. After which there was no active bleeding noted from any of my dissection planes. I then released insufflation and introduced 10 mL of 0.25% Marcaine into the peritoneal cavity for postoperative pain management. I then removed both the trocars under direct visualization and laparoscope. Once the trocars were removed, I reapproximated the skin using 4-0 Monocryl in interrupted subcuticular stitches. Dermabond was placed into the incision and bandage placed over the incisions as well. Kronner uterine manipulator was removed. Packer catheter was removed. The patient tolerated the procedure well and was taken to recovery area in stable condition. Lap and sponge counts were correct at the end of the procedure. Instrument counts correct as well. Job ID: [id number] DocumentID: [id number] Dictated Date: 07/15/2020 12:53:06 Antenna Machine Operator Date: 07/15/2020 19:19:21 Dictated By: DO MADELAINE THACKER
== END 2020-07-15 13:10 | disposition home or self-care (01) ==
LOC: SDC 08:29
PROVIDERS: ATTEND Obstetrics & Gynecology
DX: R10.2 Pelvic and perineal pain (principal); G89.29 Other chronic pain; N94.10 Unspecified dyspareunia; F32.9 Major depressive disorder, single episode, unspecified; N94.5 Secondary dysmenorrhea; Z79.899 Other long term (current) drug therapy; F17.210 Nicotine dependence, cigarettes, uncomplicated; E66.9 Obesity, unspecified; Z68.41 Body mass index [BMI] 40.0-44.9, adult; Z88.5 Allergy status to narcotic agent; Z88.8 Allergy status to other drugs, medicaments and biological substances; Z90.49 Acquired absence of other specified parts of digestive tract; Z83.3 Family history of diabetes mellitus; Z82.49 Family history of ischemic heart disease and other diseases of the circulatory system
CPT/HCPCS: 36415; 84703; 85025; 86850; 86900; 86901; 87081

== ENCOUNTER → 2020-09-10 | Outpatient (CLI) | payer MEDICAID ==
[~2020-09-10] MED LIST changes: +ACHD5005 PO; +IBUP-1773 PO
[2020-09-10 09:56] LABS: BASOPHILS % (AUTO) 1 % (0-10); EOSINOPHILS % (AUTO) 3 % (0-10); HEMATOCRIT 41 % (35-52); HEMOGLOBIN 13.9 G/DL (11.5-16.0); LYMPHOCYTES % (AUTO) 32 % (12-44); MEAN CORPUSCULAR HEMOGLOBIN 33 PG (25-34); MEAN CORPUSCULAR HGB CONC 34 G/DL (32-36); MEAN CORPUSCULAR VOLUME 97 FL (80-99); MEAN PLATELET VOLUME 10.2 FL (7.4-10.4); MONOCYTES % (AUTO) 11 % (0-12); NEUTROPHILS % (AUTO) 53 % (42-75); PLATELET COUNT 360 10^3/uL (130-400); WHITE BLOOD COUNT 10.6 10^3/uL (4.3-11.0)
[2020-09-10 09:57] LABS: BASOPHILS # (AUTO) 0.1 10^3/uL (0.0-0.1); EOSINOPHILS # (AUTO) 0.3 10^3/uL (0.0-0.3); LYMPHOCYTES # (AUTO) 3.4 X 10^3 (1.0-4.0); MONOCYTES # (AUTO) 1.1 X 10^3 (0.0-1.0); NEUTROPHILS # (AUTO) 5.6 X 10^3 (1.8-7.8)
[2020-09-10 11:48] LABS: CHLORIDE 102 MMOL/L (98-107); POTASSIUM 3.7 MMOL/L (3.6-5.0); SODIUM 138 MMOL/L (135-145)
[2020-09-10 11:49] LABS: ALANINE AMINOTRANSFERASE 13 U/L (0-55); ALKALINE PHOSPHATASE 91 U/L (40-136); BILIRUBIN,TOTAL 0.2 MG/DL (0.1-1.0); BUN/CREATININE RATIO 17; CALCIUM 9.8 MG/DL (8.5-10.1); CARBON DIOXIDE 27 MMOL/L (21-32); CREATININE SERUM 0.63 MG/DL (0.60-1.30); GFR ESTIMATED > 60; GLUCOSE 81 MG/DL (70-105); TOTAL PROTEIN 7.7 GM/DL (6.4-8.2)
[2020-09-10 11:50] LABS: ALBUMIN 4.1 GM/DL (3.2-4.5)
== END ==
LOC: LAB FS 09:23
PROVIDERS: ATTEND Nurse Practitioner Family
DX: R06.02 Shortness of breath (principal)
CPT/HCPCS: 36415; 80053; 85025; 85379

== ENCOUNTER → 2021-01-13 | Outpatient (CLI) | payer MEDICAID ==
--- NOTE | 2021-01-13 15:22 | Diagnostic Imaging Report ---
PROCEDURE: MR imaging of the brain without contrast. TECHNIQUE: Multiplanar, multisequence MR imaging of the brain was performed without contrast. INDICATION: Migraines. COMPARISON: None Findings: No acute ischemia, mass, or hemorrhage. Small focus of T2 hyperintense signal is seen in the peritrigonal white matter in the left parieto-occipital region. The ventricles, cortical sulci, and basilar cisterns are symmetric and unremarkable. The sellar and suprasellar regions have a normal appearance. The brainstem and posterior fossa are unremarkable. The paranasal sinuses and mastoid air cells demonstrate normal signal characteristics. The globes and orbits are symmetric and unremarkable. The scalp and calvarium have a normal appearance. Impression: 1. No acute ischemia, mass, or hemorrhage. 2. Small focus of T2 hyperintense signal in the peritrigonal white matter in the left parieto-occipital region, favored to represent sequela of migraine. Dictated by: Dictated on workstation # [id number]
== END ==
LOC: RAD 14:01
PROVIDERS: ATTEND Family Medicine
DX: G43.909 Migraine, unspecified, not intractable, without status migrainosus (principal)
CPT/HCPCS: 70551

== ENCOUNTER 2021-03-06 20:49 | Emergency (ER) | payer MEDICAID ==
[~2021-03-06] VITALS: Ht 157.4 cm; Wt 105.4 kg
--- NOTE | 2021-03-06 20:55 | ED Dyspnea ---
General Stated Complaint: SOB;RIGHT ANKLE INJ History of Present Illness Date Seen by Provider: Mar 06, 2021 Time Seen by Provider: 20:54 Initial Comments 35-year-old female presents with shortness of air for the past 2 hours. States that it started after dinner. History of present illness, patient recently diagnosed with a sinus infection and is on antibiotics as well as an albuterol inhaler which doesn't seem to help with her soa. She has had a cough and chest congestion for the past 1 week. Denies any fever, abdominal pain or chest pain. Denies history of asthma. Allergies and Home Medications Allergies Coded Allergies: Antihistamines - Alkylamine (Verified Allergy, Severe, SEIZURES, 07/09/20) aspirin (Verified Allergy, Severe, SEIZURES, pt has rec Ketorolac in the past, 07/15/20) phenobarbital (Verified Allergy, Severe, SEIZURES, 07/09/20) Home Medications Escitalopram Oxalate 20 Mg Tablet, 20 MG PO DAILY, (Reported) Haloperidol 0.5 Mg Tablet, 0.25 MG PO DAILY, (Reported) Haloperidol 0.5 Mg Tablet, 0.5 MG PO HS, (Reported) Hydrocodone/Acetaminophen 1 Each Tablet, 1 TAB PO Q4H PRN for PAIN-MODERATE (5- 7) Prescribed by: GUNNAR DUBON on 07/15/20 1026 Ibuprofen 600 Mg Tablet, 600 MG PO Q6H Prescribed by: GUNNAR DUBON on 07/15/20 1026 Multivitamin 1 Each Tablet, 1 EACH PO DAILY, (Reported) Pantoprazole Sodium 40 Mg Tablet.dr, 40 MG PO DAILY, (Reported) Prednisone 50 Mg Tab, 50 MG PO DAILY Prescribed by: CLEMENT HOPKINS on 03/06/212105 Patient Home Medication List Home Medication List Reviewed: Yes Review of Systems Review of Systems Constitutional: No fever, No malaise, No weakness EENTM: No hoarseness, No mouth pain, No mouth swelling, No nose congestion, No throat pain, No throat swelling Respiratory: cough, short of breath, wheezing Cardiovascular: No chest pain, No edema, No palpitations Gastrointestinal: No abdominal pain, No loss of appetite, No nausea, No vomiting Musculoskeletal: No back pain, No joint pain Skin: No change in color, No rash Past Clfeggh-Shiltc-Usosis Hx Patient Social History Tobacco Use?: Yes Seasonal Allergies Seasonal Allergies: Yes Past Medical History Surgeries: Yes (UMBILICAL HERNIA REPAIR) Abdominal, Gallbladder, Tubal Ligation Respiratory: No Cardiac: No Neurological: Yes (LAST SEIZURE AT AGE 1) Seizure Disorder Reproductive Disorders: Yes (CHRONIC PELVIC PAIN AND IRREGULAR AND HEAVY BLEEDING ACCORDING TO PT) Female Reproductive Disorders: 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 Sexually Transmitted Disease: No HIV/AIDS: No Genitourinary: No Gastrointestinal: No Musculoskeletal: No Endocrine: No HEENT: No Loss of Vision: Denies Hearing Impairment: Denies Cancer: No Psychosocial: Yes (SUIDIDAL IDEATION-ADMITTED TO [facility] 01/01/20) Suicide Attempts, Depression Integumentary: No Blood Disorders: No Adverse Reaction/Blood Tranf: No (N/A) Physical Exam Vital Signs Vital Signs - First Documented 03/06/21 20:53 Temp 36.6 Pulse 123 Resp 16 B/P (MAP) 160/99 (119) Pulse Ox 95 O2 Delivery Room Air Capillary Refill : Height, Weight, BMI Height: 5'2.00" Weight: 200lbs. oz. 90.222595vt; 40.93 BMI Method:Stated General Appearance: No Apparent Distress, WD/WN, Other (breathing rapidly on arrival, but talking non-stop) HEENT: PERRL/EOMI, Normal ENT Inspection Neck: Full Range of Motion, Non Tender, Supple Respiratory: Chest Non Tender, No Accessory Muscle Use, No Respiratory Distress, Decreased Breath Sounds, Wheezing (faint end expiratory) Cardiovascular: Regular Rate, Rhythm, No JVD Gastrointestinal: Non Tender, Soft Extremity: Normal Capillary Refill, Non Tender Neurologic/Psychiatric: Alert, Oriented x3, No Motor/Sensory Deficits, Normal Mood/Affect Skin: Normal Color, Warm/Dry Progress/Results/Core Measures Results/Orders My Orders Orders - ROVENSTINE,CLEMENT L DO Albuterol/Ipra Inhalation Soln (Duoneb I (03/06/21 21:15) Prednisone Tablet (Deltasone Tablet) (03/06/21 21:15) Svn Small Volume Nebulizer (03/06/21 21:01) Albuterol/Ipra Inhalation Soln (Duoneb I (03/06/21 20:59) Rx-Albuterol Inhaler (Rx-Ventolin Hfa) (03/06/21 21:10) Chest 1 View Ap/Pa Only (03/06/21 21:06) Albuterol/Ipra Inhalation Soln (Duoneb I (03/06/21 21:30) Svn Small Volume Nebulizer (03/06/21 21:25) Medications Given in ED Current Medications Medications Dose Ordered Sig/Silver Route Start Time Stop Time Status Last Admin Dose Admin Albuterol/ Ipratropium 3 ml ONCE ONCE INH 03/06/21 21:15 03/06/21 21:16 DC 03/06/21 21:11 3 ML Albuterol/ Ipratropium 3 ml ONCE ONCE INH 03/06/21 21:30 03/06/21 21:31 DC 03/06/21 21:28 3 ML Prednisone 60 mg ONCE ONCE PO 03/06/21 21:15 03/06/21 21:16 DC 03/06/21 21:11 60 MG Vital Signs/I&O 03/06/21 03/06/21 20:53 21:44 Temp 36.6 Pulse 123 106 Resp 16 18 B/P (MAP) 160/99 (119) 167/98 Pulse Ox 95 96 O2 Delivery Room Air Room Air Progress Progress Note : Progress Note much improved after nebs....breathing improved and more relaxed. Discussed how to use inhaler and given Rx's w advised follow up Diagnostic Imaging Diagonstic Imaging: Xray Plain Films/CT/US/NM/MRI: chest Comments 2116- no acute process. no infiltrate or effusion. normal heart size Reviewed: Reviewed by Me Departure Impression Primary Impression: Dyspnea Qualified Codes: R06.00 - Dyspnea, unspecified Additional Impression: Reactive airway disease Qualified Codes: J45.909 - Unspecified asthma, uncomplicated Disposition: 01 HOME, SELF-CARE Condition: Improved Departure-Patient Inst. Decision time for Depature: 21:18 Referrals: RONALDO CLEMENT MD (PCP/Family) Primary Care Physician Patient Instructions: How to Use a Metered Dose Inhaler ED, Acute Bronchitis, Adult (DC) Add. Discharge Instructions: follow up with Dr Clement in 1 week if not improving, ER sooner if having worsening symptoms If you don't feel your inhaler is working, call your PCP and ask for a prescription for an "AERO-CHAMBER" ....this can help make your inhaler easier to use and more effective. Scripts Prednisone (Prednisone) 50 Mg Tab 50 MG PO DAILY, #7 TAB Prov: CLEMENT HOPKINS DO 03/06/21 CLEMENT HOPKINS DO Mar 06, 2021 20:55
[2021-03-06] MEDS ORDERED: RT-ALBUTEROL/IPRATROPIUM 3 ML (DUONEB) VIAL ONE (20:59)
[2021-03-06] MEDS ORDERED: PRD50T PO (21:06)
[2021-03-06] MEDS ORDERED: RX-ALBUTEROL INHALER (VENTOLIN HFA) 18 GM IH ONE (21:10)
[2021-03-06] MEDS ORDERED: predniSONE 20 MG TAB PO ONE (21:15)
[2021-03-06] MEDS ORDERED: RT-ALBUTEROL/IPRATROPIUM 3 ML (DUONEB) VIAL INH ONE ×2 (21:15→21:30)
[2021-03-06 21:44] VITALS: BP 167/98
--- NOTE | 2021-03-06 22:01 | Diagnostic Imaging Report ---
Clinical indications: Patient with shortness of air and wheezing. Exam: Portable chest x-ray upright view. Comparisons: None. Findings: Lungs/pleura: Lungs are clear. There is no pneumothorax. There is no pleural effusion. Mediastinum: Unremarkable. Pulmonary vasculature: Unremarkable. Heart: Unremarkable. Bones/extrathoracic soft tissue: Unremarkable. Impression: There is no radiographic evidence of acute cardiopulmonary process. Dictated by: Dictated on workstation # [id number]
== END 2021-03-06 21:44 | disposition home or self-care (01) ==
LOC: EDUNIT# 20:49 → ER FS 20:50
DX: J45.909 Unspecified asthma, uncomplicated (principal); F32.9 Major depressive disorder, single episode, unspecified; Z79.899 Other long term (current) drug therapy
CPT/HCPCS: 71045; 94640

== ENCOUNTER 2021-05-12 21:45 | Emergency (ER) | payer MEDICAID ==
[~2021-05-12] VITALS: Ht 157 cm; Wt 104.7 kg
[~2021-05-12 21:45] MED LIST changes: +PRD50T PO
--- OUTSIDE RECORDS SUMMARY | 2021-05-12 21:49 | XMS REPORT | Clinical Summary ---
Author Author [facility] Organization [facility] Address Unknown Phone Unavailable Care Team Providers Care Crew Leader Name Role Phone Teofilo Clement MD PCP Unavailable Allergies Comments Active Allergy Reactions Severity Noted Date seizures Aspirin Other (See 01/02/2020 Comments) seizures Diphenhydramine Other (See 01/02/2020 Comments) Seizures Phenobarbital Other (See 01/02/2020 Comments) Medications End Date Status Medication Sig Dispensed Refills Start Date Active acetaminophen-codeine Take 1 tablet 0 (TYLENOL #3) 300-30 MG by mouth per tablet every 6 (six) hours as needed for Moderate Pain. Active ergocalciferol (VITAMIN Take 50,000 0 D) 1.25 MG (47099 UT) Units by capsule mouth once a week. Active potassium chloride Take 10 mEq 0 (KLOR-CON) 10 MEQ tablet by mouth daily with breakfast. Active haloperidol (HALDOL) 5 MG Take 2.5 mg 0 tablet by mouth daily. Half tablet in the morning and 1 full tablet at bedtime. Active haloperidol (HALDOL) 5 MG Take 5 mg by 0 tablet mouth at bedtime. Active calcium carbonate (TUMS Chew 1 tablet 0 EX) 750 MG chewable daily. tablet Active Emyqouel-Lecgsrdc-Cbq Chew 230 mg. 0 Citrate (NAUZENE) 968-175-230 MG CHEW Active escitalopram (LEXAPRO) 10 Take 1 tablet 30 tablet 0 MG tabletIndications: MDD (10 mg total) 0 (major depressive by mouth disorder), recurrent daily. severe, without psychosis (HCC), Anxiety Active Problems Problem Noted Date MDD (major depressive disorder), recurrent severe, wi thout psychosis 01/02/2020 Suicidal ideation 01/02/2020 Anxiety 01/02/2020 Tourette's disorder 01/02/2020 Intellectual disability 01/02/2020 Chronic headaches 01/02/2020 GERD (gastroesophageal reflux disease) 01/02/2020 Urinary tract infection with hematuria 01/02/2020 Vitamin D deficiency 01/02/2020 History of hypokalemia 01/02/2020 Immunizations Name Administration Dates Next Due Pneumococcal 01/03/2020 Polysaccharide (23-valent) Social History Date Tobacco Use Types Packs/Day Years Used Current Every Day Smoker Cigarettes 0.25 Smokeless Tobacco: Never Used Tobacco Cessation: Ready to Quit: No; Co unseling Given: No Comments Alcohol Use Standard Drinks/Week Not Currently 0 (1 standard drink = 0.6 o z pure alcohol) Control Partners Comments Sexually Active Tubal Ligation Yes Sex Assigned at Date Recorded Not on file Last Filed Vital Signs Reading Time Taken Comments Vital Sign 131/82 01/03/2020 8:13 AM CDT Blood Pressure 111 01/03/2020 8:13 AM CDT Pulse 37.2 C (98.9 F) 01/03/2020 8:12 AM CDT Temperature 16 01/03/2020 8:12 AM CDT Respiratory Rate 96% 01/03/2020 8:12 AM CDT Oxygen Saturation - - Inhaled Oxygen Concentration 97.5 kg (215 lb) 01/02/2020 2:45 AM CDT Weight 157.5 cm (5' 2") 01/02/2020 2:45 AM CDT Height 39.32 01/02/2020 2:45 AM CDT Body Mass Index Plan of Treatment Health Maintenance Due Date Last Done Comments Varicella Vaccines (1 of 1984 2 - 2-dose childhood series) COVID-19 Vaccine (1) 1995 Hepatitis C Screening 2001 DTaP,Tdap,and Td Vaccines 2002 (1 - Tdap) MMR Vaccines-Adult 2002 Cervical Cancer Screening 2004 Influenza Vaccine (#1) 2021 06/26/2020, 05/04/2019, 05/23/2018, Additional history exists Pneumo-Vaccine: 65+Yrs (2 2048 01/03/2020 of 2 - PPSV23) Pneumo-Vaccine: Peds (0-5 2048 01/03/2020 Yrs) & At-Risk Patients (6-64 Yrs) (2 of 2 - PPSV23) HIB Vaccines Aged Out No longer eligible based on patient's age to complete this topic IPV Vaccines Aged Out No longer eligible based on patient's age to complete this topic Meningococcal Vaccine Aged Out No longer eligib le based on patient's age to complete this topic Rotavirus Vaccines Aged Out No longer eligible based on patient's age to complete this topic Results Not on filefrom Last 3 Months Insurance Type Payer Benefit Subscriber ID Effective Phone Address Plan / Dates Group [facility] 19 [id number] 2019-P [address] [address] Advance Directives For more information, please contact: [phone] Patient Technical Aide Explanation Type Date Recorded Advance Directives and Living Will Would like to set this up wh ile here Power of Professor Of Marketing Date Inactivated Comments Code Status Date Activated Full Code 01/03/2020 10:59 AM 01/03/2020 10:59 AM Full Code 01/02/2020 2:11 AM Care Teams Start Date End Date Crew Leader Relationship Specialty 01/01/20 Teofilo Clement MD PCP - General Emergency Medicine
--- NOTE | 2021-05-12 22:01 | ED GI ---
General Stated Complaint: LOWER ABD PAIN History of Present Illness Date Seen by Provider: May 12, 2021 Time Seen by Provider: 21:50 Initial Comments 35-year-old female presents with lower abdominal pelvic pain intermittently for several weeks. She is followed Dr. Wolf, STAFF RADIOLOGIST who is recently worked her up and stated that she had endometriosis based on exam and ultrasound findings. She has an IUD and does not have regular periods. She denies any pain with urination, however says she has been treated for UTI recently. Denies any fever chills, change in bowel habit or pattern, bloody or dark stools. Denies nausea vomiting, decreased appetite or weight loss. Patient has been taking ibuprofen, Aleve and Tylenol today without any relief. Allergies and Home Medications Allergies Coded Allergies: Antihistamines - Alkylamine (Verified Allergy, Severe, SEIZURES, 07/09/20) aspirin (Verified Allergy, Severe, SEIZURES, pt has rec Ketorolac in the past, 07/15/20) phenobarbital (Verified Allergy, Severe, SEIZURES, 07/09/20) Patient Home Medication List Home Medication List Reviewed: Yes Escitalopram Oxalate (Lexapro) 20 Mg Tablet, 20 MG PO DAILY, (Reported) Entered as Reported by: BRAYDEN STREETER on 07/09/20 1542 Haloperidol (Haloperidol) 0.5 Mg Tablet, 0.25 MG PO DAILY, (Reported) Entered as Reported by: BRAYDEN STREETER on 07/09/20 1542 Haloperidol (Haloperidol) 0.5 Mg Tablet, 0.5 MG PO HS, (Reported) Entered as Reported by: BRAYDEN STREETER on 07/09/20 1542 Hydrocodone/Acetaminophen (Hydrocodone-Acetamin 5-325 mg) 1 Each Tablet, 1 TAB PO Q4H PRN for PAIN-MODERATE (5-7) Prescribed by: GUNNAR DUBON on 07/15/20 1026 Hydrocodone/Acetaminophen (Hydrocodone-Acetamin 5-325 mg) 1 Each Tablet, 1 EACH PO Q4H Prescribed by: CLEMENT HOPKINS on 05/12/21 2321 Ibuprofen (Ibuprofen) 600 Mg Tablet, 600 MG PO Q6H Prescribed by: GUNNAR DUBON on 07/15/20 1026 Ibuprofen (Ibuprofen) 800 Mg Tablet, 800 MG PO Q8H PRN for PAIN Prescribed by: CLEMENT HOPKINS on 05/12/21 2320 Multivitamin (Multivitamin) 1 Each Tablet, 1 EACH PO DAILY, (Reported) Entered as Reported by: BRAYDEN STREETER on 07/09/20 1542 Pantoprazole Sodium (Protonix) 40 Mg Tablet.dr, 40 MG PO DAILY, (Reported) Entered as Reported by: BRAYDEN STREETER on 07/09/20 1542 Prednisone (Prednisone) 50 Mg Tab, 50 MG PO DAILY Prescribed by: CLEMENT HOPKINS on 03/06/212105 Review of Systems Review of Systems Constitutional: No fever, No malaise, No weakness Respiratory: No Symptoms Reported; Denies Cough, Denies Shortness of Air Cardiovascular: Denies Chest Pain, Denies Edema, Denies Lightheadedness Gastrointestinal: See HPI, Abdominal Pain; Denies Constipated, Denies Diarrhea, Denies Nausea, Denies Poor Appetite, Denies Vomiting Genitourinary: See HPI; Denies Burning, Denies Discharge, Denies Frequency, Denies Flank Pain, Denies Hematuria, Denies Incontinence Skin: no symptoms reported Past Kumpygj-Hqdwke-Dvczif Hx Patient Social History Tobacco Use?: No Seasonal Allergies Seasonal Allergies: Yes Past Medical History Surgeries: Yes (UMBILICAL HERNIA REPAIR) Abdominal, Gallbladder, Tubal Ligation Respiratory: No Cardiac: No Neurological: Yes (LAST SEIZURE AT AGE 1) Seizure Disorder Reproductive Disorders: Yes (CHRONIC PELVIC PAIN AND IRREGULAR AND HEAVY BLEEDING ACCORDING TO PT) Female Reproductive Disorders: Menstrual 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 Sexually Transmitted Disease: No HIV/AIDS: No Genitourinary: No Gastrointestinal: No Musculoskeletal: No Endocrine: No HEENT: No Loss of Vision: Denies Hearing Impairment: Denies Cancer: No Psychosocial: Yes (SUIDIDAL IDEATION-ADMITTED TO [facility] 01/01/20) Suicide Attempts, Depression Integumentary: No Blood Disorders: No Adverse Reaction/Blood Tranf: No (N/A) Physical Exam Vital Signs Vital Signs - First Documented 05/12/21 21:49 Temp 35.8 Pulse 114 Resp 20 B/P (MAP) 133/118 (123) Pulse Ox 97 O2 Delivery Room Air Capillary Refill : Height/Weight/BMI Height: 5'2.00" Weight: 200lbs. oz. 90.070290bc; 42.00 BMI Method:Stated General Appearance: WD/WN, no apparent distress Respiratory: chest non-tender, lungs clear, normal breath sounds Cardiovascular: regular rate, rhythm, no edema, no JVD Gastrointestinal: soft; No distended, No guarding, No rebound; tenderness (diffuse lower abdomen); No mass Back: normal inspection, no CVA tenderness Progress/Results/Core Measures Results/Orders Lab Results Laboratory Tests Test 05/12/21 22:00 Range/Units White Blood Count 10.4 4.3-11.0 10^3/uL Red Blood Count 4.45 3.80-5.11 10^6/uL Hemoglobin 14.5 11.5-16.0 g/dL Hematocrit 43 35-52 % Mean Corpuscular Volume 96 80-99 fL Mean Corpuscular Hemoglobin 33 25-34 pg Mean Corpuscular Hemoglobin Concent 34 32-36 g/dL Red Cell Distribution Width 12.4 10.0-14.5 % Platelet Count 382 130-400 10^3/uL Mean Platelet Volume 10.3 9.0-12.2 fL Immature Granulocyte % (Auto) 0 % Neutrophils (%) (Auto) 57 42-75 % Lymphocytes (%) (Auto) 31 12-44 % Monocytes (%) (Auto) 8 0-12 % Eosinophils (%) (Auto) 4 0-10 % Basophils (%) (Auto) 1 0-10 % Neutrophils # (Auto) 5.9 1.8-7.8 X 10^3 Lymphocytes # (Auto) 3.2 1.0-4.0 X 10^3 Monocytes # (Auto) 0.9 0.0-1.0 X 10^3 Eosinophils # (Auto) 0.4 H 0.0-0.3 10^3/uL Basophils # (Auto) 0.1 0.0-0.1 10^3/uL Immature Granulocyte # (Auto) 0.0 0.0-0.1 10^3/uL Sodium Level 140 135-145 MMOL/L Potassium Level 4.3 3.6-5.0 MMOL/L Chloride Level 105 98-107 MMOL/L Carbon Dioxide Level 25 21-32 MMOL/L Anion Gap 10 5-14 MMOL/L Blood Urea Nitrogen 15 7-18 MG/DL Creatinine 0.72 0.60-1.30 MG/DL Estimat Glomerular Filtration Rate 91 BUN/Creatinine Ratio 21 Glucose Level 134 H 70-105 MG/DL Calcium Level 9.3 8.5-10.1 MG/DL Corrected Calcium 9.0 8.5-10.1 MG/DL Total Bilirubin 0.2 0.1-1.0 MG/DL Aspartate Amino Transf (AST/SGOT) 18 5-34 U/L Alanine Aminotransferase (ALT/SGPT) 16 0-55 U/L Alkaline Phosphatase 81 40-136 U/L Total Protein 7.8 6.4-8.2 GM/DL Albumin 4.4 3.2-4.5 GM/DL My Orders Orders - ROVENSTINE,CLEMENT L DO Ed Iv/Invasive Line Start (05/12/21 22:01) Cbc With Automated Diff (05/12/21 22:01) Comprehensive Metabolic Panel (05/12/21 22:01) Ct Abdomen/Pelvis W (05/12/21 22:01) Ketorolac Injection (Toradol Injection) (05/12/21 22:15) Iohexol Injection (Omnipaque 350 Mg/Ml 1 (05/12/21 22:15) Received Contrast (Hold Metformin- Contr (05/12/21 22:15) Ns (Ivpb) (Sodium Chloride 0.9% Ivpb Bag (05/12/21 22:15) Morphine Injection (Morphine Injection (05/12/21 23:18) Morphine Injection (Morphine Injection (05/12/21 23:32) Morphine Injection (Morphine Injection (05/12/21 23:38) Medications Given in ED Vital Signs/I&O 05/12/21 05/13/21 21:49 00:18 Temp 35.8 35.8 Pulse 114 100 Resp 20 20 B/P (MAP) 133/118 (123) 128/100 Pulse Ox 97 97 O2 Delivery Room Air Room Air Diagnostic Imaging Diagonstic Imaging: CT Plain Films/CT/US/NM/MRI: abdomen Comments Date of Exam:05/12/21 CT ABDOMEN/PELVIS W PROCEDURE: CT abdomen and pelvis with contrast. TECHNIQUE: Multiple contiguous axial images were obtained through the abdomen and pelvis after administration of intravenous contrast. Auto Exposure Controls were utilized during the CT exam to meet ALARA standards for radiation dose reduction. All CT scans use one or more of the following dose optimizing techniques: automated exposure control, MA and/or KvP adjustment based on patient size and exam type or iterative reconstruction. INDICATION: Abdominal pain in patient with endometriosis. COMPARISON: 12/06/2019. Minimal nodule is again seen in the visualized left lung base. Gallbladder is surgically absent. There is no evidence of focal hepatic or splenic lesion. Pancreas, adrenal glands and kidneys are unremarkable. There is no evidence of free fluid within the abdomen or pelvis. Intrauterine device is seen in the expected location of the uterus. There is no evidence of abdominal or pelvic free fluid. No organized fluid collection is identified. Unopacified urinary bladder is unremarkable in appearance. IMPRESSION: No acute abnormality or significant adverse change is identified. Dictated on workstation # [id number] Dict: 05/12/21 2247 Trans: 05/12/21 2251 [facility] [id number] Interpreted by: LEXUS ODOM MD Electronically signed by: Departure Impression Primary Impression: Pelvic pain Disposition: HOME, SELF-CARE Condition: Improved Departure-Patient Inst. Decision time for Depature: 23:19 Referrals: RONALDO MCCORMICK MD (PCP) Primary Care Physician ANICETO WOLF DO (Family) Primary Care Physician Patient Instructions: Pelvic Pain ED Add. Discharge Instructions: Call Dr Wolf office tomorrow to let him know you were in the ER tonight for evaluation of your pelvic pain. You have had a normal CT and labs. Scripts Ibuprofen (Ibuprofen) 800 Mg Tablet 800 MG PO Q8H PRN for PAIN, #30 TAB 0 Refills Prov: CLEMENT HOPKINS DO 05/12/21 Hydrocodone/Acetaminophen (Hydrocodone-Acetamin 5-325 mg) 1 Each Tablet 1 EACH PO Q4H for Abdominal Pain, #10 TAB Prov: CLEMENT HOPKINS DO 05/12/21 CLEMENT HOPKINS DO May 12, 2021 22:01
[2021-05-12] MEDS ORDERED: KETOROLAC 30 MG/ML VIAL IVP ONE (22:15)
[2021-05-12] MEDS ORDERED: HOLD METFORMIN - RECEIVED CONTRAST 20 ML VIAL IV SCH (22:15)
[2021-05-12] MEDS ORDERED: IOHEXOL 350 MG/ML 100 ML (OMNIPAQUE 350) VIAL IV ONE (22:15)
[2021-05-12] MEDS ORDERED: NS 100 ML (IVPB) BAG IV ONE (22:15)
[2021-05-12 22:18] LABS: HEMATOCRIT 43 % (35-52); HEMOGLOBIN 14.5 g/dL (11.5-16.0); MEAN CORPUSCULAR HEMOGLOBIN 33 pg (25-34); MEAN CORPUSCULAR HGB CONC 34 g/dL (32-36); MEAN CORPUSCULAR VOLUME 96 fL (80-99); PLATELET COUNT 382 10^3/uL (130-400); WHITE BLOOD COUNT 10.4 10^3/uL (4.3-11.0)
[2021-05-12 22:19] LABS: BASOPHILS # (AUTO) 0.1 10^3/uL (0.0-0.1); BASOPHILS % (AUTO) 1 % (0-10); EOSINOPHILS # (AUTO) 0.4 10^3/uL (0.0-0.3); EOSINOPHILS % (AUTO) 4 % (0-10); LYMPHOCYTES # (AUTO) 3.2 X 10^3 (1.0-4.0); LYMPHOCYTES % (AUTO) 31 % (12-44); MEAN PLATELET VOLUME 10.3 fL (9.0-12.2); MONOCYTES # (AUTO) 0.9 X 10^3 (0.0-1.0); MONOCYTES % (AUTO) 8 % (0-12); NEUTROPHILS # (AUTO) 5.9 X 10^3 (1.8-7.8); NEUTROPHILS % (AUTO) 57 % (42-75)
[2021-05-12 22:35] LABS: POTASSIUM 4.3 MMOL/L (3.6-5.0)
[2021-05-12 22:36] LABS: ALBUMIN 4.4 GM/DL (3.2-4.5); BILIRUBIN,TOTAL 0.2 MG/DL (0.1-1.0); CALCIUM 9.3 MG/DL (8.5-10.1); CREATININE SERUM 0.72 MG/DL (0.60-1.30); TOTAL PROTEIN 7.8 GM/DL (6.4-8.2)
--- NOTE | 2021-05-12 22:52 | Diagnostic Imaging Report ---
PROCEDURE: CT abdomen and pelvis with contrast. TECHNIQUE: Multiple contiguous axial images were obtained through the abdomen and pelvis after administration of intravenous contrast. Auto Exposure Controls were utilized during the CT exam to meet ALARA standards for radiation dose reduction. All CT scans use one or more of the following dose optimizing techniques: automated exposure control, MA and/or KvP adjustment based on patient size and exam type or iterative reconstruction. INDICATION: Abdominal pain in patient with endometriosis. COMPARISON: 12/06/2019. Minimal nodule is again seen in the visualized left lung base. Gallbladder is surgically absent. There is no evidence of focal hepatic or splenic lesion. Pancreas, adrenal glands and kidneys are unremarkable. There is no evidence of free fluid within the abdomen or pelvis. Intrauterine device is seen in the expected location of the uterus. There is no evidence of abdominal or pelvic free fluid. No organized fluid collection is identified. Unopacified urinary bladder is unremarkable in appearance. IMPRESSION: No acute abnormality or significant adverse change is identified. Dictated by: Dictated on workstation # [id number]
[2021-05-12] MEDS ORDERED: morphine INJ 10 MG/ML 1ML (SYR OR VIAL) IVP STA (23:18)
[2021-05-12] MEDS ORDERED: IBUP-1780 PO (23:20)
[2021-05-12] MEDS ORDERED: ACHD5005 PO (23:20)
[2021-05-12] MEDS ORDERED: morphine INJ 10 MG/ML 1ML (SYR OR VIAL) ONE (23:32)
[2021-05-12] MEDS ORDERED: morphine INJ 10 MG/ML 1ML (SYR OR VIAL) IM STA (23:38)
[2021-05-13 00:18] VITALS: BP 128/100
== END 2021-05-12 23:45 | disposition home or self-care (01) ==
LOC: EDUNIT# 21:45 → ER FS 21:46
DX: R10.2 Pelvic and perineal pain (principal); F32.9 Major depressive disorder, single episode, unspecified; Z87.42 Personal history of other diseases of the female genital tract; Z97.5 Presence of (intrauterine) contraceptive device; Z98.51 Tubal ligation status; Z79.899 Other long term (current) drug therapy; Z88.6 Allergy status to analgesic agent
CPT/HCPCS: 36415; 74177; 80053; 85025

== ENCOUNTER 2021-08-01 00:19 | Emergency (ER) | payer MEDICAID ==
[~2021-08-01] VITALS: Ht 157 cm; Wt 105.0 kg
--- OUTSIDE RECORDS SUMMARY | 2021-08-01 00:25 | XMS REPORT | Clinical Summary ---
Author Author [facility] Address Unknown Phone Unavailable Care Team Providers Care Environmental Construction Engineer Name Role Phone Teofilo Clement MD PCP Allergies Comments Active Allergy Reactions Severity Noted [...] (VITAMIN Take 50,000 0 D) 1.25 MG (70165 UT) Units by capsule mouth once a [...] EX) 750 MG chewable daily. tablet Active Vqpchkis-Ierfradm-Dti Chew 230 mg. 0 Citrate (NAUZENE) [phone] [...] of 1984 2 - 2-dose childhood series) Hepatitis C Screening 2001 DTaP,Tdap,and Td Vaccines 2002 (1 - Tdap) MMR Vaccines-Adult 2002 Cervical Cancer Screening 2004 COVID-19 Vaccine (2 - 07/10/2021 06/12/2021 Moderna 2-dose series) Pneumo-Vaccine: 65+Yrs (2 2048 01/03/2020 of 2 - PPSV23) Pneumo-Vaccine: Peds (0-5 2048 01/03/2020 Yrs) & At-Risk Patients (6-64 Yrs) (2 of 2 - PPSV23) Influenza Vaccine Completed 06/12/2021, 06/26/2020, 05/04/2019, Additional history exists HIB Vaccines Aged Out No longer eligible [...] Effective Phone Address Plan / Dates Group [facility] 19 [id number] 2019-P [address] [address] Advance Directives For more information, please contact: [phone] 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
[2021-08-01] MEDS ORDERED: IBUPROFEN 600 MG (MOTRIN) TAB PO ONE (00:45)
[2021-08-01] MEDS ORDERED: oxyCODONE/APAP 5/325MG (PERCOCET 5) TABLET PO ONE (00:45)
--- NOTE | 2021-08-01 00:50 | ED Upper Extremity ---
General Chief Complaint: Trauma-Non Activation Stated Complaint: LT HAND BURN Nursing Triage Note: Pt was baking caught the little and had melted chocolate to her left hand. Redness noted to left hand, no blisters. Source: patient Exam Limitations: no limitations History of Present Illness Date Seen by Provider: Aug 01, 2021 Time Seen by Provider: 12:15 Initial Comments Patient is right-handed 36-year-old female presents with splash burn to her left hand. Patient was pouring hot chocolate from a little onto baking goods when the chocolate splashed onto her hand. On exam, she has erythema and waxiness around her fingers and proximal flexor palmar crease. There is no blistering and sensation is intact throughout. The injury occurred prior to ED arrival. Patient ran her hand under cold water but did not take any other medications. Pain is moderate to severe. Onset: just prior to arrival Severity: moderate Pain/Injury Location: left hand Method of Injury: other Modifying Factors: Improves With Other Allergies and Home Medications Allergies Coded Allergies: Antihistamines - Alkylamine (Verified Allergy, Severe, SEIZURES, 07/09/20) aspirin (Verified Allergy, Severe, SEIZURES, pt has rec Ketorolac in the past, 07/15/20) phenobarbital (Verified Allergy, Severe, SEIZURES, 07/09/20) Patient Home Medication List Home Medication List Reviewed: Yes Escitalopram Oxalate (Lexapro) 20 Mg Tablet, 20 MG PO DAILY, (Reported) Entered as Reported by: BRAYDEN STREETER on 07/09/20 154 Haloperidol (Haloperidol) 0.5 Mg Tablet, 0.25 MG PO DAILY, (Reported) Entered as Reported by: BRAYDEN STREETER on 07/09/20 1542 Haloperidol (Haloperidol) 0.5 Mg Tablet, 0.5 MG PO HS, (Reported) Entered as Reported by: BRAYDEN STREETER on 07/09/20 1542 Hydrocodone/Acetaminophen (Hydrocodone-Acetamin 5-325 mg) 1 Each Tablet, 1 TAB PO Q4H PRN for PAIN-MODERATE (5-7) Prescribed by: GUNNAR DUBON on 07/15/20 1026 Hydrocodone/Acetaminophen (Hydrocodone-Acetamin 5-325 mg) 1 Each Tablet, 1 EACH PO Q4H Prescribed by: CLEMENT HOPKINS on 05/12/21 2321 Ibuprofen (Ibuprofen) 600 Mg Tablet, 600 MG PO Q6H Prescribed by: GUNNAR DUBON on 07/15/20 1026 Ibuprofen (Ibuprofen) 800 Mg Tablet, 800 MG PO Q8H PRN for PAIN Prescribed by: CLEMENT HOPKINS on 05/12/21 2320 Multivitamin (Multivitamin) 1 Each Tablet, 1 EACH PO DAILY, (Reported) Entered as Reported by: BRAYDEN STREETER on 07/09/20 1542 Pantoprazole Sodium (Protonix) 40 Mg Tablet.dr, 40 MG PO DAILY, (Reported) Entered as Reported by: BRAYDEN STREETER on 07/09/20 1542 Prednisone (Prednisone) 50 Mg Tab, 50 MG PO DAILY Prescribed by: CLEMENT HOPKINS on 03/06/212105 Review of Systems Constitutional: see HPI Musculoskeletal: other Past Huyayeu-Ibkzpr-Jicgqx Hx Patient Social History Tobacco Use?: No Use of E-Cig and/or Vaping dev: No Substance use?: No Alcohol Use?: No Pt feels they are or have been: No Immunizations Up To Date Influenza Vaccine Up-to-Date: Yes; Up-to-Date First/Initial COVID19 Vaccinat: NA Second COVID19 Vaccination Issac: Felisa 2020 Seasonal Allergies Seasonal Allergies: Yes Past Medical History Surgeries: Yes (UMBILICAL HERNIA REPAIR) Abdominal, Gallbladder, Tubal Ligation Respiratory: No Cardiac: No Neurological: Yes (LAST SEIZURE AT AGE 1) Seizure Disorder Reproductive Disorders: Yes (CHRONIC PELVIC PAIN AND IRREGULAR AND HEAVY BLEEDING ACCORDING TO PT) Female Reproductive Disorders: 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 Sexually Transmitted Disease: No HIV/AIDS: No Genitourinary: No Gastrointestinal: No Musculoskeletal: No Endocrine: No HEENT: No Loss of Vision: Denies Hearing Impairment: Denies Cancer: No Psychosocial: Yes (SUIDIDAL IDEATION-ADMITTED TO [facility] 01/01/20) Suicide Attempts, Depression Integumentary: No Blood Disorders: No Adverse Reaction/Blood Tranf: No (N/A) Physical Exam Vital Signs Vital Signs - First Documented 08/01/21 00:28 Temp 36.8 Pulse 115 Resp 17 B/P (MAP) 137/97 (110) Pulse Ox 96 O2 Delivery Room Air Capillary Refill : Less Than 3 Seconds Height, Weight, BMI Height: 5'2.00" Weight: 200lbs. oz. 90.370021ce; 42.00 BMI Method:Stated General Appearance: mild distress (secondary to pain) Skin: other (Left hand, erythema and laxities of flexor surface of fingers erythema of flexor palmar crease. No blistering or circumferential wilkinson. Sensation intact throughout) Progress/Results/Core Measures Results/Orders My Orders Orders - BAILEE MCKINNEY DO Oxycodone/Apap 5/325mg Tablet (Percocet (08/01/21 00:45) Ibuprofen Tablet (Motrin Tablet) (08/01/21 00:45) Medications Given in ED Current Medications Medications Dose Ordered Sig/Silver Route Start Time Stop Time Status Last Admin Dose Admin Ibuprofen 600 mg ONCE ONCE PO 08/01/21 00:45 08/01/21 00:46 08/01/21 00:39 600 MG Oxycodone/ Acetaminophen 1 tab ONCE ONCE PO 08/01/21 00:45 08/01/21 00:46 08/01/21 00:39 1 TAB Vital Signs/I&O 08/01/21 00:28 Temp 36.8 Pulse 115 Resp 17 B/P (MAP) 137/97 (110) Pulse Ox 96 O2 Delivery Room Air Blood Pressure Mean: 110 Departure Communication (Admissions) First-degree noncircumferential wilkinson of left hand. Impression Primary Impression: First degree burn of left hand including fingers Disposition: 01 HOME, SELF-CARE Condition: Stable Departure-Patient Inst. Decision time for Depature: 00:48 Referrals: RONALDO MCCORMICK MD (PCP) Primary Care Physician ANICETO STERLING DO (Family) Primary Care Physician Patient Instructions: Skin Wilkinson Add. Discharge Instructions: Please apply Neosporin to affected area, take ibuprofen for pain and hydrocodone as needed for additional relief. Follow-up with your PCP in 2 to 3 days for reevaluation. Return to the ED if signs of infection All discharge instructions reviewed with patient and/or family. Voiced understanding. Scripts Hydrocodone/Acetaminophen (Hydrocodone-Acetamin 5-325 mg) 1 Each Tablet 1 TAB PO Q4H PRN for PAIN-MODERATE (5-7), #10 TAB Prov: BAILEE MCKINNEY DO 08/01/21 BAILEE MCKINNEY DO Aug 01, 2021 00:49
[2021-08-01] MEDS ORDERED: ACHD5005 PO (00:51)
[2021-08-01 00:57] VITALS: BP 137/97
== END 2021-08-01 00:57 | disposition home or self-care (01) ==
LOC: EDUNIT# 00:19 → ER FS 00:22
DX: T23.142A Burn of first degree of multiple left fingers (nail), including thumb, initial encounter (principal); F32.9 Major depressive disorder, single episode, unspecified; Z79.899 Other long term (current) drug therapy; X10.1XXA Contact with hot food, initial encounter
CPT/HCPCS: 99283

== ENCOUNTER 2021-09-05 17:57 | Emergency (ER) | payer MEDICAID ==
[~2021-09-05] VITALS: Ht 157.5 cm; Wt 102.3 kg
[2021-09-05 18:27] LABS: BACTERIA,URINE MODERATE /HPF; BILIRUBIN,URINE NEGATIVE (NEGATIVE); CLARITY,URINE SLIGHTLY CLOUDY; COLOR,URINE YELLOW; GLUCOSE, URINE (UA) NEGATIVE (NEGATIVE); KETONES,URINE NEGATIVE (NEGATIVE); LEUKOCYTE ESTERASE ,URINE 1+ (NEGATIVE); NITRITE,URINE NEGATIVE (NEGATIVE); PROTEIN,URINE NEGATIVE (NEGATIVE); WHITE BLOOD COUNT 9.4 10^3/uL (4.3-11.0)
[2021-09-05 18:28] LABS: BASOPHILS # (AUTO) 0.1 10^3/uL (0.0-0.1); BASOPHILS % (AUTO) 1 % (0-10); EOSINOPHILS # (AUTO) 0.3 10^3/uL (0.0-0.3); EOSINOPHILS % (AUTO) 3 % (0-10); HEMATOCRIT 40 % (35-52); HEMOGLOBIN 13.8 g/dL (11.5-16.0); LYMPHOCYTES # (AUTO) 2.8 X 10^3 (1.0-4.0); LYMPHOCYTES % (AUTO) 30 % (12-44); MEAN CORPUSCULAR HEMOGLOBIN 32 pg (25-34); MEAN CORPUSCULAR HGB CONC 35 g/dL (32-36); MEAN CORPUSCULAR VOLUME 93 fL (80-99); MEAN PLATELET VOLUME 9.9 fL (9.0-12.2); MONOCYTES # (AUTO) 0.7 X 10^3 (0.0-1.0); MONOCYTES % (AUTO) 8 % (0-12); NEUTROPHILS # (AUTO) 5.5 X 10^3 (1.8-7.8); NEUTROPHILS % (AUTO) 59 % (42-75); PLATELET COUNT 370 10^3/uL (130-400)
[2021-09-05 18:35] LABS: PROTHROMBIN TIME PATIENT 13.1 SEC (12.2-14.7)
[2021-09-05] MEDS ORDERED: NS IV 1000 ML 1,000 ML IV STA (18:36)
[2021-09-05] MEDS ORDERED: KETOROLAC 30 MG/ML VIAL IVP STA (18:36)
[2021-09-05] MEDS ORDERED: ONDANSETRON 4 MG/2 ML (SDV) Z0FRAN IVP STA (18:36)
--- NOTE | 2021-09-05 18:39 | ED General ---
General Chief Complaint: Abdominal/GI Problems Stated Complaint: ABD CRAMPING/DIARRHEA Nursing Triage Note: Patient reports lower abdominal pain and bloody diarrhea with mucus for 3 days. Source of Information: Patient, Old Records History of Present Illness Date Seen by Provider: Sep 05, 2021 Time Seen by Provider: 18:10 Initial Comments 36-year-old female presenting with complaints of lower abdominal pain and bloody diarrhea with mucus for the last 3 days. She also has been feeling fatigued and tired. She has had nausea but no vomiting. She denies any definite fever but has had subjective fever. She states that she does not have a thermometer so she has not been able to take her temperature. She has had no pain or burning with urination. She has not seen any blood in her vomit. She denies any cough or shortness of breath. The pain feels like cramping pain similar to when she had contractions with . She was concerned about her appendix because its worse in the right lower quadrant. It is worse with palpation and movement but she has not taken anything for the pain. Timing/Duration: 2-3 Days Severity: Moderate Modifying Factors: worse with Movement Associated Systoms: No Chest Pain, No Cough, No Diaphoresis; Fever/Chills (Subjective fever but no thermometer at home to take her temperature); No Headaches, No Loss of Appetite; Malaise, Nausea/Vomiting (Nausea but no vomiting); No Rash, No Seizure, No Shortness of Air, No Syncope; Weakness (Feels generalized weakness and fatigue) Allergies and Home Medications Allergies Coded Allergies: Antihistamines - Alkylamine (Verified Allergy, Severe, SEIZURES, 07/09/20) aspirin (Verified Allergy, Severe, SEIZURES, pt has rec Ketorolac in the past, 07/15/20) phenobarbital (Verified Allergy, Severe, SEIZURES, 07/09/20) Patient Home Medication List Home Medication List Reviewed: Yes Dicyclomine HCl (Dicyclomine HCl) 20 Mg Tablet, 20 MG PO Q6H PRN for abdominal pain/nausea Prescribed by: MARY JANE PEREZ on 09/05/211916 Escitalopram Oxalate (Lexapro) 20 Mg Tablet, 20 MG PO DAILY, (Reported) Entered as Reported by: BRAYDEN STREETER on 07/09/20 154 Haloperidol (Haloperidol) 0.5 Mg Tablet, 0.25 MG PO DAILY, (Reported) Entered as Reported by: BRAYDEN STREETER on 07/09/20 1542 Haloperidol (Haloperidol) 0.5 Mg Tablet, 0.5 MG PO HS, (Reported) Entered as Reported by: BRAYDEN STREETER on 07/09/20 1542 Hydrocodone/Acetaminophen (Hydrocodone-Acetamin 5-325 mg) 1 Each Tablet, 1 TAB PO Q4H PRN for PAIN-MODERATE (5-7) Prescribed by: GUNNAR DUBON on 07/15/20 1026 Hydrocodone/Acetaminophen (Hydrocodone-Acetamin 5-325 mg) 1 Each Tablet, 1 EACH PO Q4H Prescribed by: CLEMENT HOPKINS on 05/12/21 232 Hydrocodone/Acetaminophen (Hydrocodone-Acetamin 5-325 mg) 1 Each Tablet, 1 TAB PO Q4H PRN for PAIN-MODERATE (5-7) Prescribed by: BAILEE MCKINNEY on 08/01/21 0051 Ibuprofen (Ibuprofen) 600 Mg Tablet, 600 MG PO Q6H Prescribed by: GUNNAR DUBON on 07/15/20 1026 Ibuprofen (Ibuprofen) 800 Mg Tablet, 800 MG PO Q8H PRN for PAIN Prescribed by: CLEMENT HOPKINS on 05/12/21 232 Multivitamin (Multivitamin) 1 Each Tablet, 1 EACH PO DAILY, (Reported) Entered as Reported by: BRAYDEN STREETER on 07/09/20 1542 Ondansetron (Ondansetron Odt) 4 Mg Tab.rapdis, 4 MG PO Q6H PRN for NAUSEA/VOMITING Prescribed by: MARY JANE PEREZ on 09/05/211916 Pantoprazole Sodium (Protonix) 40 Mg Tablet.dr, 40 MG PO DAILY, (Reported) Entered as Reported by: BRAYDEN STREETER on 07/09/20 1542 Prednisone (Prednisone) 50 Mg Tab, 50 MG PO DAILY Prescribed by: CLEMENT HOPKINS on 03/06/212105 Review of Systems Review of Systems Constitutional: see HPI; No dizziness; fever (Subjective fever), malaise, weakness EENTM: no symptoms reported Respiratory: no symptoms reported Gastrointestinal: see HPI Genitourinary: No dysuria, No hematuria Musculoskeletal: no symptoms reported Skin: No rash Psychiatric/Neurological: Anxiety Past Dhasxfg-Jvtteq-Dyrxxn Hx Patient Social History Tobacco Use?: No Substance use?: No Alcohol Use?: No Pt feels they are or have been: No Immunizations Up To Date First/Initial COVID19 Vaccinat: NA Second COVID19 Vaccination Issac: Felisa 2020 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 Seasonal Allergies Seasonal Allergies: Yes Past Medical History Surgeries: Yes (UMBILICAL HERNIA REPAIR) Abdominal, Gallbladder, Tubal Ligation Respiratory: No Cardiac: No Neurological: Yes (LAST SEIZURE AT AGE 1) Seizure Disorder Reproductive Disorders: Yes (CHRONIC PELVIC PAIN AND IRREGULAR AND HEAVY BLEEDING ACCORDING TO PT) Female Reproductive Disorders: Menstrual Problems 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 Sexually Transmitted Disease: No HIV/AIDS: No Genitourinary: No Gastrointestinal: No Musculoskeletal: No Endocrine: No HEENT: No Loss of Vision: Denies Hearing Impairment: Denies Cancer: No Psychosocial: Yes (SUIDIDAL IDEATION-ADMITTED TO [facility] 01/01/20) Suicide Attempts, Depression Integumentary: No Blood Disorders: No Adverse Reaction/Blood Tranf: No (N/A) Physical Exam Vital Signs Vital Signs - First Documented 09/05/21 09/05/21 18:04 19:29 Temp 36.4 Pulse 103 Resp 18 B/P (MAP) 119/87 Pulse Ox 96 O2 Delivery Room Air Capillary Refill : Less Than 3 Seconds Height, Weight, BMI Height: 5'2.00" Weight: 200lbs. oz. 90.115531tv; 41.00 BMI Method:Stated General Appearance: No Apparent Distress, Obese HEENT: Normal ENT Inspection, Pharynx Normal Neck: Full Range of Motion, Normal Inspection, Non Tender, Supple Respiratory: Chest Non Tender, Lungs Clear, Normal Breath Sounds Cardiovascular: Regular Rate, Rhythm, Normal Peripheral Pulses Gastrointestinal: Normal Bowel Sounds, No Pulsatile Mass, Soft; No Distended, No Guarding, No Mass, No Rebound; Tenderness (Tenderness in the right lower quadrant and suprapubic area) Rectal: Deferred Back: No CVA Tenderness Extremity: Normal Capillary Refill, Normal Inspection, No Pedal Edema Neurologic/Psychiatric: Alert, Oriented x3, 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 Norm as Tested Skin: Normal Color, Warm/Dry Progress/Results/Core Measures Suspected Sepsis SIRS Temperature: Pulse: 103 Respiratory Rate: 18 Laboratory Tests 09/05/21 18:15: White Blood Count 9.4 Blood Pressure / Mean: Laboratory Tests 09/05/21 18:15: Creatinine 0.71, INR Comment 1.0, Platelet Count 370, Total Bilirubin 0.3 Results/Orders Lab Results Laboratory Tests Test 09/05/21 17:45 09/05/21 18:15 Range/Units Influenza Type A Antigen NEGATIVE NEGATIVE Influenza Type B Antigen NEGATIVE NEGATIVE White Blood Count 9.4 4.3-11.0 10^3/uL Red Blood Count 4.28 3.80-5.11 10^6/uL Hemoglobin 13.8 11.5-16.0 g/dL Hematocrit 40 35-52 % Mean Corpuscular Volume 93 80-99 fL Mean Corpuscular Hemoglobin 32 25-34 pg Mean Corpuscular Hemoglobin Concent 35 32-36 g/dL Red Cell Distribution Width 12.3 10.0-14.5 % Platelet Count 370 130-400 10^3/uL Mean Platelet Volume 9.9 9.0-12.2 fL Immature Granulocyte % (Auto) 0 % Neutrophils (%) (Auto) 59 42-75 % Lymphocytes (%) (Auto) 30 12-44 % Monocytes (%) (Auto) 8 0-12 % Eosinophils (%) (Auto) 3 0-10 % Basophils (%) (Auto) 1 0-10 % Neutrophils # (Auto) 5.5 1.8-7.8 X 10^3 Lymphocytes # (Auto) 2.8 1.0-4.0 X 10^3 Monocytes # (Auto) 0.7 0.0-1.0 X 10^3 Eosinophils # (Auto) 0.3 0.0-0.3 10^3/uL Basophils # (Auto) 0.1 0.0-0.1 10^3/uL Immature Granulocyte # (Auto) 0.0 0.0-0.1 10^3/uL Prothrombin Time 13.1 12.2-14.7 SEC INR Comment 1.0 0.8-1.4 Activated Partial Thromboplast Time 26 24-35 SEC Urine Color YELLOW Urine Clarity SLIGHTLY CLOUDY Urine pH 7.0 5-9 Urine Specific [place] 1.010 L 1.016-1.022 Urine Protein NEGATIVE NEGATIVE Urine Glucose (UA) NEGATIVE NEGATIVE Urine Ketones NEGATIVE NEGATIVE Urine Nitrite NEGATIVE NEGATIVE Urine Bilirubin NEGATIVE NEGATIVE Urine Urobilinogen 0.2 < = 1.0 MG/DL Urine Leukocyte Esterase 1+ H NEGATIVE Urine RBC (Auto) NEGATIVE NEGATIVE Urine RBC 2-5 H /HPF Urine WBC 10-25 H /HPF Urine Squamous Epithelial Cells 10-25 H /HPF Urine Crystals NONE /LPF Urine Bacteria MODERATE H /HPF Urine Casts NONE /LPF Urine Mucus NEGATIVE /LPF Urine Culture Indicated NO Sodium Level 136 135-145 MMOL/L Potassium Level 3.8 3.6-5.0 MMOL/L Chloride Level 102 98-107 MMOL/L Carbon Dioxide Level 25 21-32 MMOL/L Anion Gap 9 5-14 MMOL/L Blood Urea Nitrogen 10 7-18 MG/DL Creatinine 0.71 0.60-1.30 MG/DL Estimat Glomerular Filtration Rate 112 BUN/Creatinine Ratio 14 Glucose Level 112 H 70-105 MG/DL Calcium Level 9.1 8.5-10.1 MG/DL Corrected Calcium 8.9 8.5-10.1 MG/DL Total Bilirubin 0.3 0.1-1.0 MG/DL Aspartate Amino Transf (AST/SGOT) 15 5-34 U/L Alanine Aminotransferase (ALT/SGPT) 14 0-55 U/L Alkaline Phosphatase 89 40-136 U/L Total Protein 7.4 6.4-8.2 GM/DL Albumin 4.2 3.2-4.5 GM/DL Lipase 30 8-78 U/L My Orders Orders - MARY JANE PEREZ MD Comprehensive Metabolic Panel (09/05/21 18:09) Lipase (09/05/21 18:09) Ua Culture If Indicated (09/05/21 18:09) Ed Iv/Invasive Line Start (09/05/21 18:09) Cbc With Automated Diff (09/05/21 18:09) Protime With Inr (09/05/21 18:09) Partial Thromboplastin Time (09/05/21 18:09) Ct Abdomen/Pelvis W (09/05/21 18:09) Urine Bedside (09/05/21 18:09) Iohexol Injection (Omnipaque 350 Mg/Ml 1 (09/05/21 18:45) Received Contrast (Hold Metformin- Contr (09/05/21 18:45) Sodium Chloride Flush (Catheter Flush Sy (09/05/21 18:45) Ns (Ivpb) (Sodium Chloride 0.9% Ivpb Bag (09/05/21 18:45) Ns Iv 1000 Ml (Sodium Chloride 0.9%) (09/05/21 18:36) Ondansetron Injection (Zofran Injectio (09/05/21 18:36) Ketorolac Injection (Toradol Injection) (09/05/21 18:36) Stool Culture (09/05/21 18:36) Fecal Wbc (09/05/21 18:36) C Difficile Ag + Toxin A/B. (09/05/21 18:36) Isolation Central Supply Req (09/05/21 18:36) Covid 19 Inhouse Test (09/05/21 18:39) Influenza A & B Antigens (09/05/21 18:39) Isolation Central Supply Req (09/05/21 18:39) Medications Given in ED Current Medications Medications Dose Ordered Sig/Silver Route Start Time Stop Time Status Last Admin Dose Admin Iohexol 100 ml ONCE ONCE IV 09/05/21 18:45 09/05/21 18:46 DC 09/05/21 18:40 100 ML Sodium Chloride 100 ml ONCE ONCE IV 09/05/21 18:45 09/05/21 18:46 DC 09/05/21 18:40 100 ML Vital Signs/I&O 09/05/21 09/05/21 18:04 19:29 Temp 36.4 36.4 Pulse 103 87 Resp 18 18 B/P (MAP) 119/87 Pulse Ox 96 96 O2 Delivery Room Air Room Air Capillary Refill : Less Than 3 Seconds Progress Note #1: Progress Note Check urine as well as labs and CT scan of the abdomen and pelvis. Give IV fluids for hydration. Zofran for nausea, Toradol for pain. Progress Note #2: Progress Note CT scan does not show any acute significant abnormality. The appendix is not inflamed or showing no signs of appendicitis. There is no fluid collection. Labs appear stable without acute significant normality. Influenza is negative. COVID swab will be back in the next 24 to 48 hours. Counseled patient on results and will send her with prescriptions for Zofran and Bentyl. Encouraged to do liquid diet for 24 hours and then advance to a bland diet. Counseled on follow-up and return precautions. Diagnostic Imaging Diagonstic Imaging: CT Plain Films/CT/US/NM/MRI: abdomen, pelvis Comments [facility]. [place], [place] NAME: KAYLA MCCULLOUGH [facility] REC#: [id number] PT STATUS: REG ER : 1985 PHYSICIAN: MARY JANE PEREZ MD ADMIT DATE: 09/05/21/ER FS Signed Date of Exam:09/05/21 CT ABDOMEN/PELVIS W PROCEDURE: CT abdomen and pelvis with contrast. TECHNIQUE: Multiple contiguous axial images were obtained through the abdomen and pelvis after administration of intravenous contrast. Auto Exposure Controls were utilized during the CT exam to meet ALARA standards for radiation dose reduction. All CT scans use one or more of the following dose optimizing techniques: automated exposure control, MA and/or KvP adjustment based on patient size and exam type or iterative reconstruction. INDICATION: Lower abdominal pain. COMPARISON: 05/12/2021. FINDINGS: The lung bases are clear. The gallbladder is surgically absent. Solid organs, vascular structures and bowel are grossly normal. There is no free air or free fluid. The appendix is normal. There is no inflammatory process. There is no diverticulosis. The uterus is surgically absent. The urinary bladder is grossly unremarkable. There is no recurrent hernia. Osseous structures are age-appropriate. IMPRESSION: 1. Surgically absent gallbladder and uterus. 2. No inflammatory process, free air, free fluid or bowel obstruction. 3. Normal appendix. Dictated by: Dictated on workstation # [id number] Dict: 09/05/211849 Trans: 09/05/211913 [facility] [id number] Interpreted by: ALEX RAE Electronically signed by: ALEX RAE 09/05/211913 Reviewed: Reviewed by Nd Departure Impression Primary Impression: Lower abdominal pain Additional Impressions: Diarrhea Qualified Codes: R19.7 - Diarrhea, unspecified Nausea Person under investigation for COVID-19 Disposition: 01 HOME, SELF-CARE Condition: Stable Departure-Patient Inst. Decision time for Depature: 19:14 Referrals: RONALDO MCCORMICK MD (PCP) Primary Care Physician ANICETO STERLING DO (Family) Primary Care Physician Patient Instructions: COVID-19 ED, Nausea and Vomiting, Adult ED, Abdominal Pain, Adult ED, Diarrhea, Adult ED Add. Discharge Instructions: Use the nausea medicine to help keep your stomach settle. Try the Bentyl or dicyclomine to help with abdominal cramping and pain. Try following a bland low-fat diet to help with the looser stools. Check back with the clinic for continued symptoms or if not improving. You should quarantine and isolate until you have results of the COVID test from [facility]. You should get a call in the next 24 to 48 hours when that test comes back if it is positive. All discharge instructions reviewed with patient and/or family. Voiced understanding. Scripts Ondansetron (Ondansetron Odt) 4 Mg Tab.rapdis 4 MG PO Q6H PRN for NAUSEA/VOMITING for 3 Days, #12 TAB 0 Refills Prov: MARY JANE PEREZ MD 09/05/21 Dicyclomine HCl (Dicyclomine HCl) 20 Mg Tablet 20 MG PO Q6H PRN for abdominal pain/nausea for 10 Days, #40 TAB 0 Refills Prov: MARY JANE PEREZ MD 09/05/21 MARY JANE PEREZ MD Sep 05, 2021 18:39
[2021-09-05 18:42] LABS: ALBUMIN 4.2 GM/DL (3.2-4.5); BILIRUBIN,TOTAL 0.3 MG/DL (0.1-1.0); CALCIUM 9.1 MG/DL (8.5-10.1); CREATININE SERUM 0.71 MG/DL (0.60-1.30); POTASSIUM 3.8 MMOL/L (3.6-5.0); TOTAL PROTEIN 7.4 GM/DL (6.4-8.2)
[2021-09-05] MEDS ORDERED: CATHETER FLUSH 10 ML SYR IV PRN (18:45)
[2021-09-05] MEDS ORDERED: IOHEXOL 350 MG/ML 100 ML (OMNIPAQUE 350) VIAL IV ONE (18:45)
[2021-09-05] MEDS ORDERED: NS 100 ML (IVPB) BAG IV ONE (18:45)
[2021-09-05] MEDS ORDERED: HOLD METFORMIN - RECEIVED CONTRAST 20 ML VIAL IV SCH (18:45)
--- NOTE | 2021-09-05 18:55 | Diagnostic Imaging Report ---
PROCEDURE: CT abdomen and pelvis with contrast. TECHNIQUE: Multiple contiguous axial images were obtained through the abdomen and pelvis after administration of intravenous contrast. Auto Exposure Controls were utilized during the CT exam to meet ALARA standards for radiation dose reduction. All CT scans use one or more of the following dose optimizing techniques: automated exposure control, MA and/or KvP adjustment based on patient size and exam type or iterative reconstruction. INDICATION: Lower abdominal pain. COMPARISON: 05/12/2021. FINDINGS: The lung bases are clear. The gallbladder is surgically absent. Solid organs, vascular structures and bowel are grossly normal. There is no free air or free fluid. The appendix is normal. There is no inflammatory process. There is no diverticulosis. The uterus is surgically absent. The urinary bladder is grossly unremarkable. There is no recurrent hernia. Osseous structures are age-appropriate. IMPRESSION: 1. Surgically absent gallbladder and uterus. 2. No inflammatory process, free air, free fluid or bowel obstruction. 3. Normal appendix. Dictated by: Dictated on workstation # [id number]
[2021-09-05] MEDS ORDERED: DICY20TA PO (19:17)
[2021-09-05] MEDS ORDERED: ONDA4TAB11 PO (19:17)
[2021-09-05 19:29] VITALS: BP 119/87
== END 2021-09-05 19:31 | disposition home or self-care (01) ==
LOC: EDUNIT# 17:57 → ER FS 17:58
DX: R10.30 Lower abdominal pain, unspecified (principal); R19.7 Diarrhea, unspecified; R11.0 Nausea; E66.9 Obesity, unspecified; F32.9 Major depressive disorder, single episode, unspecified; Z20.822 Contact with and (suspected) exposure to COVID-19; Z68.41 Body mass index [BMI] 40.0-44.9, adult; Z79.899 Other long term (current) drug therapy
CPT/HCPCS: 36415; 74177; 80053; 81000; 83690; 84703; 85025; 85610; 85730; 87636; 87804

== ENCOUNTER 2021-12-05 14:19 | Emergency (ER) | payer MEDICAID ==
[~2021-12-05] VITALS: Ht 157.5 cm; Wt 84.4 kg
[~2021-12-05 14:19] MED LIST changes: +DICY20TA PO
[2021-12-05 14:30] VITALS: BP 131/83
[2021-12-05 14:37] LABS: BILIRUBIN,URINE NEGATIVE (NEGATIVE); CLARITY,URINE CLEAR; GLUCOSE, URINE (UA) NEGATIVE (NEGATIVE); KETONES,URINE NEGATIVE (NEGATIVE); LEUKOCYTE ESTERASE ,URINE NEGATIVE (NEGATIVE); NITRITE,URINE NEGATIVE (NEGATIVE); PROTEIN,URINE NEGATIVE (NEGATIVE)
[2021-12-05 14:43] LABS: BACTERIA,URINE TRACE /HPF; COLOR,URINE PALE YELLOW; SQUAMOUS EPITHELIAL CELL,UR 0-2 /HPF; WBC,URINE 0-2 /HPF
--- NOTE | 2021-12-05 14:46 | ED GU-Female ---
General Chief Complaint: - Reproductive Stated Complaint: SUPRAPUBIC PAIN Nursing Triage Note: PT ARRIVED BY PRIVATE VEHICLE WITH CHIEF COMPLAINT OF PELVIC PAIN. PT STATED SHE HAD A HYSTERECTOMY IN MAY AND SHE STARTED TO HAVE PELVIC PAIN TODAY AT NOON. PT TOOK IBUPROFEN 800 MG AT 1330 AND IT HASN'T HELPED THE PAIN. PT RATES PAIN AT A 10/10. PT IS ALERT, ORIENTED X 4 AND AMBULATORY. PT WAS ABLE TO PROVIDE URINE SAMPLE. VITAL SIGNS WERE DONE AND REPORT WAS GIVEN TO PROVIDER. Source: patient Exam Limitations: no limitations History of Present Illness Date Seen by Provider: Dec 05, 2021 Time Seen by Provider: 14:20 Initial Comments Patient is a 36-year-old female who presents with suprapubic pain with burning starting approximately 2-1/2 hours prior to ED arrival. Pain is sharp. Patient denies fever chills, nausea vomiting or sweats. No flank pain, no urinary frequency urgency or burning. No other acute symptoms or complaints. Patient did take 800 mg of ibuprofen prior to ED arrival with limited relief. 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 Modifying Factors: Improves With Other Associated Symptoms: other Allergies and Home Medications Allergies Coded Allergies: Antihistamines - Alkylamine (Verified Allergy, Severe, SEIZURES, 07/09/20) aspirin (Verified Allergy, Severe, SEIZURES, pt has rec Ketorolac in the past, 07/15/20) phenobarbital (Verified Allergy, Severe, SEIZURES, 07/09/20) Patient Home Medication List Home Medication List Reviewed: Yes Dicyclomine HCl (Dicyclomine HCl) 20 Mg Tablet, 20 MG PO Q6H PRN for abdominal pain/nausea Prescribed by: MARY JANE PEREZ on 09/05/211916 Escitalopram Oxalate (Lexapro) 20 Mg Tablet, 20 MG PO DAILY, (Reported) Entered as Reported by: BRAYDEN STREETER on 07/09/20 154 Haloperidol (Haloperidol) 0.5 Mg Tablet, 0.25 MG PO DAILY, (Reported) Entered as Reported by: BRAYDEN STREETER on 07/09/20 1542 Haloperidol (Haloperidol) 0.5 Mg Tablet, 0.5 MG PO HS, (Reported) Entered as Reported by: BRAYDEN STREETER on 07/09/20 1542 Hydrocodone/Acetaminophen (Hydrocodone-Acetamin 5-325 mg) 1 Each Tablet, 1 TAB PO Q4H PRN for PAIN-MODERATE (5-7) Prescribed by: GUNNAR DUBON on 07/15/20 1026 Hydrocodone/Acetaminophen (Hydrocodone-Acetamin 5-325 mg) 1 Each Tablet, 1 EACH PO Q4H Prescribed by: CLEMENT HOPKINS on 05/12/21 2321 Hydrocodone/Acetaminophen (Hydrocodone-Acetamin 5-325 mg) 1 Each Tablet, 1 TAB PO Q4H PRN for PAIN-MODERATE (5-7) Prescribed by: BAILEE MCKINNEY on 08/01/21 0051 Ibuprofen (Ibuprofen) 600 Mg Tablet, 600 MG PO Q6H Prescribed by: GUNNAR DUBON on 07/15/20 1026 Ibuprofen (Ibuprofen) 800 Mg Tablet, 800 MG PO Q8H PRN for PAIN Prescribed by: CLEMENT HOPKINS on 05/12/21 232 Multivitamin (Multivitamin) 1 Each Tablet, 1 EACH PO DAILY, (Reported) Entered as Reported by: BRAYDEN STREETER on 07/09/20 1542 Ondansetron (Ondansetron Odt) 4 Mg Tab.rapdis, 4 MG PO Q6H PRN for NAUSEA/VOMITING Prescribed by: MARY JANE PEREZ on 09/05/21 191 Pantoprazole Sodium (Protonix) 40 Mg Tablet.dr, 40 MG PO DAILY, (Reported) Entered as Reported by: BRAYDEN STREETER on 07/09/20 1542 Prednisone (Prednisone) 50 Mg Tab, 50 MG PO DAILY Prescribed by: CLEMENT HOPKINS on 03/06/212105 Review of Systems Review of Systems Constitutional: see HPI Genitourinary: see HPI Musculoskeletal: see HPI Past Kpykuvy-Hjovqo-Wquhpa Hx Patient Social History Tobacco Use?: No Substance use?: No Alcohol Use?: No Immunizations Up To Date First/Initial COVID19 Vaccinat: 2020 Second COVID19 Vaccination Issac: 2020 Third COVID19 Vaccination Date: 2020 Seasonal Allergies Seasonal Allergies: Yes Past Medical History Surgeries: Yes (UMBILICAL HERNIA REPAIR) Abdominal, Gallbladder, Tubal Ligation Respiratory: No Cardiac: No Neurological: Yes (LAST SEIZURE AT AGE 1) Seizure Disorder Reproductive Disorders: Yes (CHRONIC PELVIC PAIN AND IRREGULAR AND HEAVY BLEEDING ACCORDING TO PT) Female Reproductive 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 Sexually Transmitted Disease: No HIV/AIDS: No Genitourinary: No Gastrointestinal: No Musculoskeletal: No Endocrine: No HEENT: No Loss of Vision: Denies Hearing Impairment: Denies Cancer: No Psychosocial: Yes (SUIDIDAL IDEATION-ADMITTED TO [facility] 01/01/20) Suicide Attempts, Depression Integumentary: No Blood Disorders: No Adverse Reaction/Blood Tranf: No (N/A) Physical Exam Vital Signs Vital Signs - First Documented 12/05/21 14:30 Temp 36.0 Pulse 91 Resp 18 B/P (MAP) 131/83 (99) Pulse Ox 96 O2 Delivery Room Air Capillary Refill : Less Than 3 Seconds Height, Weight, BMI Height: 5'2.00" Weight: 200lbs. oz. 90.084871lm; 34.00 BMI Method:Stated General Appearance: mild distress HEENT: PERRL/EOMI, normal ENT inspection Neck: normal inspection Cardiovascular: regular rate, rhythm Respiratory: lungs clear, normal breath sounds Gastrointestinal: tenderness (Suprapubic tenderness) Back: normal inspection, no CVA tenderness Neurologic/Psychiatric: alert, oriented x 3 Focused Exam Sepsis Stage: Ruled Out Progress/Results/Core Measures Suspected Sepsis SIRS Temperature: Pulse: 91 Respiratory Rate: 18 Blood Pressure 131 /83 Mean: 99 Results/Orders Lab Results Laboratory Tests Test 12/05/21 14:30 Range/Units Urine Color PALE YELLOW Urine Clarity CLEAR Urine pH 6.0 5-9 Urine Specific [place] <=1.005 1.016-1.022 Urine Protein NEGATIVE NEGATIVE Urine Glucose (UA) NEGATIVE NEGATIVE Urine Ketones NEGATIVE NEGATIVE Urine Nitrite NEGATIVE NEGATIVE Urine Bilirubin NEGATIVE NEGATIVE Urine Urobilinogen 0.2 < = 1.0 MG/DL Urine Leukocyte Esterase NEGATIVE NEGATIVE Urine RBC (Auto) NEGATIVE NEGATIVE Urine RBC NONE /HPF Urine WBC 0-2 /HPF Urine Squamous Epithelial Cells 0-2 /HPF Urine Crystals NONE /LPF Urine Bacteria TRACE /HPF Urine Casts NONE /LPF Urine Mucus NEGATIVE /LPF Urine Culture Indicated NO My Orders Orders - BAILEE MCKINNEY DO Ua Culture If Indicated (12/05/21 14:27) Phenazopyridine Tablet (Pyridium Tablet) (12/05/21 15:00) Vital Signs/I&O 12/05/21 14:30 Temp 36.0 Pulse 91 Resp 18 B/P (MAP) 131/83 (99) Pulse Ox 96 O2 Delivery Room Air Capillary Refill : Less Than 3 Seconds Blood Pressure Mean: 99 Departure Communication (Admissions) UA negative. None description suprapubic/pelvic pain abdomen soft, nontender on repeat deep palpation. Additional pain medication given. Recommendations are watchful waiting, supportive care with close PCP follow-up. Return precautions reviewed. Patient verbalized understanding and agreement discharge instructions prior to departure peer Impression Primary Impression: Abdominal pain Disposition: HOME, SELF-CARE Condition: Stable Departure-Patient Inst. Decision time for Depature: 14:55 Referrals: RONALDO MCCORMICK MD (PCP) Primary Care Physician Patient Instructions: Abdominal Muscle Strain ED Add. Discharge Instructions: You were evaluated in the emergency department for suprapubic abdominal pain. The cause of your symptoms has not been determined but may be related to abdominal wall strain, appendicitis or other unknown diagnosis. Please take 100 mg of ibuprofen for pain and Tylenol as needed for additional relief. Follow-up with your PCP in 2 to 3 days for reevaluation if symptoms persist. Return to the ED if new or worsening symptoms. All discharge instructions reviewed with patient and/or family. Voiced understanding. BAILEE MCKINNEY DO Dec 05, 2021 14:46
[2021-12-05] MEDS ORDERED: PHENAZOPYRIDINE 100 MG (PYRIDIUM) TABLET PO ONE (15:00)
== END 2021-12-05 15:07 | disposition home or self-care (01) ==
LOC: EDUNIT# 14:19 → ER FS 14:22
DX: R10.30 Lower abdominal pain, unspecified (principal)
CPT/HCPCS: 81000; 99283

== ENCOUNTER 2022-03-19 20:43 | Emergency (ER) | payer MEDICAID ==
[~2022-03-19 20:43] MED LIST changes: -BALO40TA PO; +BALO40TA4 PO
[2022-03-19] MEDS ORDERED: KETOROLAC 60 MG/2 ML VIAL IM ONE (21:00)
--- NOTE | 2022-03-19 21:21 | Diagnostic Imaging Report ---
EXAMINATION: CT head without contrast. TECHNIQUE: Multiple contiguous axial images were obtained through the brain without the use of intravenous contrast. All CT scans use one or more of the following dose optimizing techniques: automated exposure control, MA and/or KvP adjustment based on patient size and exam type or iterative reconstruction. HISTORY: Head injury COMPARISON: None available. FINDINGS: The coon-white matter differentiation is normal. No mass effect or midline shift. The ventricles are normal in size and configuration. Basilar cisterns are patent. There are no intra- or extra-axial fluid collections. There is no intracranial hemorrhage. The orbits are normal. Paranasal sinuses are normal. Mastoid air cells are clear. No soft tissue abnormality is seen. No osseus lesions or fractures are seen. IMPRESSION: 1. No acute intracranial abnormality. Dictated by: Dictated on workstation # [id number]
--- NOTE | 2022-03-19 21:24 | ED Fall/Injury ---
General Chief Complaint: Trauma-Non Activation Stated Complaint: FALL, HIT, HEAD, L KNEE PAIN Nursing Triage Note: Pt states she was walking down some steps and the step broke and she fell through them, twisting her left knee. Pt also states she hit her head on a pillar on her porch. Pt denies loc at time of fall and is alert and oriented on arrival. Pt complaining of left knee pain and a headache Source: patient Exam Limitations: no limitations History of Present Illness Date Seen by Provider: Mar 19, 2022 Time Seen by Provider: 20:51 Initial Comments 36-year-old female patient with history of seizure disorder and depression state she had a fall from broken steps at her porch and landed backward on her head and twisted her left knee that happened more than 4 hours prior to arrival to ER. Patient complaining of injury to her head without loss of consciousness. Patient complaining of nausea and headache and foggy thinking. Patient also complaining of pain in left knee and rated her pain 9/10. Patient denies , other injuries, fever and chills, chest pain or shortness of breath. Allergies and Home Medications Allergies Coded Allergies: Antihistamines - Alkylamine (Verified Allergy, Severe, SEIZURES, 07/09/20) aspirin (Verified Allergy, Severe, SEIZURES, pt has rec Ketorolac in the past, 07/15/20) phenobarbital (Verified Allergy, Severe, SEIZURES, 07/09/20) Patient Home Medication List Home Medication List Reviewed: Yes Dicyclomine HCl (Dicyclomine HCl) 20 Mg Tablet, 20 MG PO Q6H PRN for abdominal pain/nausea Prescribed by: MARY JANE PEREZ on 09/05/211916 Escitalopram Oxalate (Lexapro) 20 Mg Tablet, 20 MG PO DAILY, (Reported) Entered as Reported by: BRAYDEN STREETER on 07/09/20 154 Haloperidol (Haloperidol) 0.5 Mg Tablet, 0.25 MG PO DAILY, (Reported) Entered as Reported by: BRAYDEN STREETER on 07/09/20 154 Haloperidol (Haloperidol) 0.5 Mg Tablet, 0.5 MG PO HS, (Reported) Entered as Reported by: BRAYDEN STREETER on 07/09/20 154 Hydrocodone/Acetaminophen (Hydrocodone-Acetamin 5-325 mg) 1 Each Tablet, 1 TAB PO Q4H PRN for PAIN-MODERATE (5-7) Prescribed by: GUNNAR DUBON on 07/15/20 1026 Hydrocodone/Acetaminophen (Hydrocodone-Acetamin 5-325 mg) 1 Each Tablet, 1 EACH PO Q4H Prescribed by: CLEMENT HOPKINS on 05/12/21 2321 Hydrocodone/Acetaminophen (Hydrocodone-Acetamin 5-325 mg) 1 Each Tablet, 1 TAB PO Q4H PRN for PAIN-MODERATE (5-7) Prescribed by: BAILEE MCKINNEY on 08/01/21 0051 Ibuprofen (Ibuprofen) 600 Mg Tablet, 600 MG PO Q6H Prescribed by: GUNNAR DUBON on 07/15/20 1026 Ibuprofen (Ibuprofen) 800 Mg Tablet, 800 MG PO Q8H PRN for PAIN Prescribed by: CLEMENT HOPKINS on 05/12/21 2320 Ibuprofen (Ibuprofen) 800 Mg Tablet, 800 MG PO Q8H PRN for PAIN Prescribed by: Jolene yoo on 03/19/222130 Multivitamin (Multivitamin) 1 Each Tablet, 1 EACH PO DAILY, (Reported) Entered as Reported by: BRAYDEN STREETER on 07/09/20 1542 Ondansetron (Ondansetron Odt) 4 Mg Tab.rapdis, 4 MG PO Q6H PRN for NAUSEA/VOMITING Prescribed by: MARY JANE PEREZ on 09/05/21 191 Pantoprazole Sodium (Protonix) 40 Mg Tablet.dr, 40 MG PO DAILY, (Reported) Entered as Reported by: BRAYDEN STREETER on 07/09/20 1542 Prednisone (Prednisone) 50 Mg Tab, 50 MG PO DAILY Prescribed by: CLEMENT HOPKINS on 03/06/212105 Review of Systems Review of Systems Constitutional: no symptoms reported Eyes: No Symptoms Reported Ears, Nose, Mouth, Throat: no symptoms reported Respiratory: no symptoms reported Cardiovascular: no symptoms reported Gastrointestinal: see HPI Genitourinary: no symptoms reported Musculoskeletal: joint pain Skin: no symptoms reported Psychiatric/Neurological: See HPI All Other Systems Reviewed Negative Unless Noted: Yes Past Ngtkdui-Qbipmv-Vlentb Hx Patient Social History Tobacco Use?: No Use of E-Cig and/or Vaping dev: No Substance use?: No Alcohol Use?: No Pt feels they are or have been: No Immunizations Up To Date First/Initial COVID19 Vaccinat: 2020 Second COVID19 Vaccination Issac: 2020 Third COVID19 Vaccination Date: 2020 Seasonal Allergies Seasonal Allergies: Yes Past Medical History Surgeries: Yes (UMBILICAL HERNIA REPAIR) Abdominal, Gallbladder, Tubal Ligation Respiratory: No Cardiac: No Neurological: Yes (LAST SEIZURE AT AGE 1) Seizure Disorder Reproductive Disorders: Yes (CHRONIC PELVIC PAIN AND IRREGULAR AND HEAVY BLEEDING ACCORDING TO PT) Female Reproductive Disorders: Menstrual Problems 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 Sexually Transmitted Disease: No HIV/AIDS: No Genitourinary: No Gastrointestinal: No Musculoskeletal: No Endocrine: No HEENT: No Loss of Vision: Denies Hearing Impairment: Denies Cancer: No Psychosocial: Yes (SUIDIDAL IDEATION-ADMITTED TO [facility] 01/01/20) Suicide Attempts, Depression Integumentary: No Blood Disorders: No Adverse Reaction/Blood Tranf: No (N/A) Physical Exam Vital Signs Vital Signs - First Documented 03/19/22 20:47 Temp 36.6 Pulse 103 Resp 18 B/P (MAP) 146/110 (122) Pulse Ox 95 O2 Delivery Room Air Capillary Refill : Less Than 3 Seconds Height, Weight, BMI Height: 5'2.00" Weight: 200lbs. oz. 90.037901bk; 34.00 BMI Method:Stated General Appearance: WD/WN, no apparent distress HEENT: PERRL/EOMI, normal ENT inspection, pharynx normal, other (Mild tenderness in occipital scalp without hematoma) Neck: non-tender, full range of motion, supple, normal inspection Cardiovascular: regular rate, rhythm, no edema, no gallop, no JVD Gastrointestinal: normal bowel sounds, non tender Back: normal inspection, no CVA tenderness Extremities: normal range of motion, non-tender, normal inspection, other (Left knee without contusional edema, normal range of motion) Neurologic/Psychiatric: alert, oriented x 3 Skin: normal color, warm/dry Progress/Results/Core Measures Results/Orders My Orders Orders - JOLENE YOO MD Ct Head Wo (03/19/22 20:56) Knee 3 View Left (03/19/22 20:56) Ketorolac Injection (Toradol Injection) (03/19/22 21:00) Medications Given in ED Current Medications Medications Dose Ordered Sig/Silver Route Start Time Stop Time Status Last Admin Dose Admin Ketorolac Tromethamine 60 mg ONCE ONCE IM 03/19/22 21:00 03/19/22 21:01 DC 03/19/22 21:00 60 MG Vital Signs/I&O 03/19/22 20:47 Temp 36.6 Pulse 103 Resp 18 B/P (MAP) 146/110 (122) Pulse Ox 95 O2 Delivery Room Air Blood Pressure Mean: 122 Progress Progress Note : Progress Note Evaluation of patient in ER showed 36-year-old female patient with a fall from 2 steps and injury to her head and twisting left knee. Patient had unremarkable physical exam except for obesity. CT head and left knee x-ray was unremarkable. Patient had Toradol IM in ER and stated her pain dropped from 9 to 2. Patient informed about test results and need for prevention of fall. Patient advised to apply ice on affected area and prescription for ibuprofen given. Diagnostic Imaging Diagonstic Imaging: Xray (Left knee), CT (Head) Comments X-ray of left knee interpreted by me and did not show acute fracture or dislocat ion. CT head interpreted by radiologist and reviewed by me and showed: NAME: KAYLA MCCULLOUGH [facility] REC#: [id number] PT STATUS: REG ER : 1985 PHYSICIAN: JOLENE YOO MD ADMIT DATE: 03/19/22/ER FS Draft Date of Exam:03/19/22 CT HEAD WO EXAMINATION: CT head without contrast. TECHNIQUE: Multiple contiguous axial images were obtained through the brain without the use of intravenous contrast. All CT scans use one or more of the following dose optimizing techniques: automated exposure control, MA and/or KvP adjustment based on patient size and exam type or iterative reconstruction. HISTORY: Head injury COMPARISON: None available. FINDINGS: The coon-white matter differentiation is normal. No mass effect or midline shift. The ventricles are normal in size and configuration. Basilar cisterns are patent. There are no intra- or extra-axial fluid collections. There is no intracranial hemorrhage. The orbits are normal. Paranasal sinuses are normal. Mastoid air cells are clear. No soft tissue abnormality is seen. No osseus lesions or fractures are seen. IMPRESSION: 1. No acute intracranial abnormality. Dictated on workstation # [id number] Dict: 03/19/222118 Trans: 03/19/222120 [facility] [id number] Interpreted by: CHRISTINE CONNOLLY MD Electronically signed by: Departure Impression Primary Impression: Fall down steps Qualified Codes: W10.8XXA - Fall (on) (from) other stairs and steps, initial encounter Additional Impressions: Head injury Qualified Codes: S09.90XD - Unspecified injury of head, subsequent encounter Left knee injury Qualified Codes: S89.92XD - Unspecified injury of left lower leg, subsequent encounter Disposition: HOME, SELF-CARE Condition: Improved Departure-Patient Inst. Decision time for Depature: 21:29 Referrals: RONALDO MCCORMICK MD (PCP) Primary Care Physician ANICETO STERLING DO (Family) Primary Care Physician Patient Instructions: Knee Pain ED, Minor Head Injury Add. Discharge Instructions: Apply ice on the affected area Follow-up with your primary care physician or return to ER as needed All discharge instructions reviewed with patient and/or family. Voiced understanding. Scripts Ibuprofen (Ibuprofen) 800 Mg Tablet 800 MG PO Q8H PRN for PAIN, #20 TAB 0 Refills Prov: JOLENE YOO MD 03/19/22 JOLENE YOO MD Mar 19, 2022 21:24
[2022-03-19] MEDS ORDERED: IBUP-1780 PO (21:31)
--- NOTE | 2022-03-19 21:31 | Diagnostic Imaging Report ---
EXAMINATION: Left knee 3 views HISTORY: Knee injury COMPARISON: None available FINDINGS: The alignment is normal. No fracture is seen. Joint spaces are normal. There is no joint effusion. IMPRESSION: 1. No fracture. Dictated by: Dictated on workstation # [id number]
[2022-03-19 21:32] VITALS: BP 146/110
== END 2022-03-19 21:34 | disposition home or self-care (01) ==
LOC: EDUNIT# 20:43 → ER FS 20:44
DX: S09.90XA Unspecified injury of head, initial encounter (principal); S00.03XA Contusion of scalp, initial encounter; S89.92XA Unspecified injury of left lower leg, initial encounter; E66.9 Obesity, unspecified; Z68.34 Body mass index [BMI] 34.0-34.9, adult; W10.9XXA Fall (on) (from) unspecified stairs and steps, initial encounter; X50.1XXA Overexertion from prolonged static or awkward postures, initial encounter; Y92.008 Other place in unspecified non-institutional (private) residence as the place of occurrence of the external cause
CPT/HCPCS: 70450; 73562

== ENCOUNTER 2022-08-27 18:32 | Emergency (ER) | payer SELFPAY ==
[~2022-08-27] VITALS: Ht 157 cm; Wt 100.0 kg
[2022-08-27] MEDS ORDERED: TETRACAINE 0.5% OPHTH SOLN 4 ML BTL (SINGLE DOSE ONLY) OU ONE (18:45)
[2022-08-27] MEDS ORDERED: FLUORESCEIN (FLUOR-I-STRIPS) 1 MG STRP OU ONE (18:45)
--- NOTE | 2022-08-27 18:48 | ED EENT ---
History of Present Illness General Chief Complaint: Eye Problems Stated Complaint: R EYE PAIN/BURNING Source: patient History of Present Illness Date Seen by Provider: Aug 27, 2022 Time Seen by Provider: 18:34 Initial Comments 37-year-old female presents with complaints of burning pain and light sensitivity to her right eyelid. She states this started Wednesday night. She is unaware of anything getting in her eye. She has had injury to that eye when she was a child. She denies any trauma recently. She had tried taking some ibuprofen without improvement in her symptoms. She moved back from [place] to [place] today so she came to the emergency department to be evaluated. She has previously [facility] here in [place] but not seen him recently. She has had no drainage from the eye. She does have some mild increased redness to the lower part of her eye. She denies fever, chills, body aches, nasal congestion, drainage, headache, cough. She denies having symptoms like this with her eye previously. She is supposed to be wearing glasses but does not wear them routinely and has not seen the eye doctor recently to update any prescriptions. Timing/Duration: abrupt, last week (WednesdayAugust 21) Severity: moderate Location: eye (R) Prearrival Treatment: over the counter meds Modifying Factors: Worse With Other (bright light makes it feel worse) Associated Symptoms: No change in hearing, No cough, No drooling, No ear drainage, No facial pain/swelling, No fever, No malaise, No nasal congestion/drainage, No poor fluid intake, No poor solids intake, No sinus infection, No sore throat, No tooth pain, No voice change Allergies and Home Medications Allergies Coded Allergies: Antihistamines - Alkylamine (Verified Allergy, Severe, SEIZURES, 07/09/20) aspirin (Verified Allergy, Severe, SEIZURES, pt has rec Ketorolac in the past, 07/15/20) phenobarbital (Verified Allergy, Severe, SEIZURES, 07/09/20) Patient Home Medication List Home Medication List Reviewed: Yes ALPRAZolam (ALPRAZolam) 0.25 Mg Tablet, 0.25 MG PO BID PRN for ANXIETY Prescribed by: MARY JANE PEREZ on 08/27/221915 Dicyclomine HCl (Dicyclomine HCl) 20 Mg Tablet, 20 MG PO Q6H PRN for abdominal pain/nausea Prescribed by: MARY JANE PEREZ on 09/05/211916 Escitalopram Oxalate (Lexapro) 20 Mg Tablet, 20 MG PO DAILY, (Reported) Entered as Reported by: BRAYDEN STREETER on 07/09/20 154 Haloperidol (Haloperidol) 0.5 Mg Tablet, 0.25 MG PO DAILY, (Reported) Entered as Reported by: BRAYDEN STREETER on 07/09/20 154 Haloperidol (Haloperidol) 0.5 Mg Tablet, 0.5 MG PO HS, (Reported) Entered as Reported by: BRAYDEN STREETER on 07/09/20 154 Haloperidol (Haloperidol) 5 Mg Tablet, 5 MG PO UD Prescribed by: MARY JANE PEREZ on 08/27/221914 Hydrocodone/Acetaminophen (Hydrocodone-Acetamin 5-325 mg) 1 Each Tablet, 1 TAB PO Q4H PRN for PAIN-MODERATE (5-7) Prescribed by: GUNNAR DUBON on 07/15/20 1026 Hydrocodone/Acetaminophen (Hydrocodone-Acetamin 5-325 mg) 1 Each Tablet, 1 EACH PO Q4H Prescribed by: CLEMENT HOPKINS on 05/12/21 2321 Hydrocodone/Acetaminophen (Hydrocodone-Acetamin 5-325 mg) 1 Each Tablet, 1 TAB PO Q4H PRN for PAIN-MODERATE (5-7) Prescribed by: BAILEE MCKINNEY on 08/01/21 0051 Ibuprofen (Ibuprofen) 600 Mg Tablet, 600 MG PO Q6H Prescribed by: GUNNAR DUBON on 07/15/20 1026 Ibuprofen (Ibuprofen) 800 Mg Tablet, 800 MG PO Q8H PRN for PAIN Prescribed by: CLEMENT HOPKINS on 05/12/21 2320 Ibuprofen (Ibuprofen) 800 Mg Tablet, 800 MG PO Q8H PRN for PAIN Prescribed by: Jolene khanna on 03/19/22 213 Multivitamin (Multivitamin) 1 Each Tablet, 1 EACH PO DAILY, (Reported) Entered as Reported by: BRAYDEN STREETER on 07/09/20 154 Ondansetron (Ondansetron Odt) 4 Mg Tab.rapdis, 4 MG PO Q6H PRN for NAUSEA/VOMITING Prescribed by: MARY JANE PEREZ on 09/05/211916 Pantoprazole Sodium (Protonix) 40 Mg Tablet.dr, 40 MG PO DAILY, (Reported) Entered as Reported by: BRAYDEN STREETER on 07/09/20 154 Prednisone (Prednisone) 50 Mg Tab, 50 MG PO DAILY Prescribed by: CLEMENT HOPKINS on 03/06/212105 Review of Systems Review of Systems Constitutional: No chills, No fever Eyes: Blurred Vision, Photophobia, Previous Injury (as a child); Denies Contact Lenses, Denies Glasses Ears: No Symptoms Reported Nose: no symptoms reported Mouth: no symptoms reported Throat: no symptoms reported Respiratory: no symptoms reported Cardiovascular: no symptoms reported Gastrointestinal: no symptoms reported Musculoskeletal: no symptoms reported Skin: no symptoms reported Neurological: No Symptoms Reported Past Vtgukly-Afflgt-Wyiwfk Hx Patient Social History Tobacco Use?: No Use of E-Cig and/or Vaping dev: No Substance use?: No Alcohol Use?: No Immunizations Up To Date First/Initial COVID19 Vaccinat: 2020 Second COVID19 Vaccination Issac: 2020 Third COVID19 Vaccination Date: 2020 Seasonal Allergies Seasonal Allergies: Yes Past Medical History Surgeries: Yes (UMBILICAL HERNIA REPAIR) Abdominal, Gallbladder, Tubal Ligation Respiratory: No Cardiac: No Neurological: Yes (LAST SEIZURE AT AGE 1) Seizure Disorder Reproductive Disorders: Yes (CHRONIC PELVIC PAIN AND IRREGULAR AND HEAVY BLEEDING ACCORDING TO PT) Female Reproductive Disorders: Menstrual Problems 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 oz. 90.877711of; 34.00 BMI Method:Stated General Appearance: WD/WN, no apparent distress Eyes: right eye conjunctival inflammation (lower part of eye below her Iris); bilateral eye PERRL, bilateral eye EOMI Neck: non-tender, full range of motion, supple, normal inspection Cardiovascular: normal peripheral pulses Neurologic/Psychiatric: gemologist II-XII nml as tested, alert, oriented x 3 Skin: normal color, warm/dry Procedures/Interventions Eye : Location: right eye Anesthesia (gtts): Tetracaine Progress/Procedure Conclusion After obtaining verbal consent from the patient tetracaine numbing drops were applied to the right eye. After a minute the patient was having improved pain in her right eye and fluorescein dye was instilled as well. Then using a black light with magnification the eye was examined. There was a small corneal abrasion on the upper part of the iris around the 12 o'clock position. She tolerated procedure well without any immediate complication. Advised that I did not see any actual foreign body. Counseled to follow-up with the clinic for more formal eye exam. Progress/Results/Core Measures Results/Orders My Orders Orders - MARY JANE PEREZ MD Tetracaine 0.5% Ophth Shira Sdv (Tetracai (08/27/22 18:45) Fluorescein Strips (Yiond-X-Fwyrpp) (08/27/22 18:45) Rx-Ofloxacin 0.3% Ophth Soln (Rx-Ocuflox (08/27/22 19:02) Medications Given in ED Current Medications Medications Dose Ordered Sig/Silver Route Start Time Stop Time Status Last Admin Dose Admin Fluorescein Sodium 1 mg ONCE ONCE OU 08/27/22 18:45 08/27/22 18:46 DC 08/27/22 18:46 1 MG Tetracaine HCl 4 ml ONCE ONCE OU 08/27/22 18:45 08/27/22 18:46 DC 08/27/22 18:46 4 ML Vital Signs/I&O 08/27/22 18:44 Temp 35.7 Pulse 93 Resp 18 B/P (MAP) 138/98 (111) Pulse Ox 95 O2 Delivery Room Air Progress Progress Note #1: Progress Note Will order tetracaine numbing drops and fluorescein dye to evaluate her eye for possible abrasion versus foreign body versus conjunctivitis. Counseled patient that if she was having worsening symptoms or not improving and her exam here did not provide an answer that she would need a more thorough eye exam with an actual eye doctor. Progress Note #2: Progress Note With application of tetracaine numbing drops and fluorescein dye patient did have a small corneal abrasion at the 12 o'clock position on her iris. There was no definite foreign body seen. Advised patient that we would use antibiotic drops to help with this and she could use ice pack and wrab-dxw-[id number] anti- inflammatories to help with pain. If the antibiotic drop was not helping or she was having worsening symptoms she would need a more formal eye exam with an eye doctor. Given information for Dr. Linares here in town but that she can see what ever her eye doctor should shows. As I was leaving the room to go order her medicine and complete her discharge instructions she also asked about having a refill of her haloperidol because she feels like she is having increase of her tics. She has not had that for several months. She is currently under extra stress from going through a divorce with her . She also just recently moved from [place] back here to [place]. She asked about seeing a therapist or counselor for her stress and anxiety as well. We will provide information for [facility] and give phone number and address. Will prescribe 2 weeks worth of the haloperidol based on her most recent prescription which was 5 mg take one half tab in the morning and 5 mg at bedtime. For her short-term anxiety we will prescribe alprazolam 0.25 mg 1 p.o. twice daily x5 days supply. Patient stated that she had had that previously had done well with it. Encouraged to check with the clinic at [facility] about reestablishing care as well as the [facility] clinic for follow-up and medication management. Departure Impression Primary Impression: Acute right eye pain Additional Impressions: Corneal abrasion Qualified Codes: S05.01XA - Injury of conjunctiva and corneal abrasion without foreign body, right eye, initial encounter Tic disorder Stress reaction Disposition: HOME, SELF-CARE Condition: Stable Departure-Patient Inst. Decision time for Depature: 19:07 Referrals: RONALDO MCCORMICK MD (PCP) Primary Care Physician ANICETO STERLING DO (Family) Primary Care Physician Ophthalmmologist Patient Instructions: How to Care for Your Eyes, How to Use Eye Drops and Eye Ointment ED, Corneal Abrasion ED, Stress Add. Discharge Instructions: Use the eye drop for right eye, 1 to 2 drops 4 times a day for 5 days. Follow up with Dr. Linares or eye doctor of your choice if not improving or if having worsening symptoms despite the medicine. Dr. Jimi Linares is at [address] and his office number is [phone]. Or you can see eye doctor of your choice if the symptoms worsen or are not improving with treatment. For your Tics restart your Haloperidol and check with [facility] about restarting medical care with them. Call [phone] to get re-established with clinic. Call [facility] about getting seen and speaking with a therapist/counselor for your stress and anxiety issues. [phone] is the number for them and their office in [place] is located at [address] [place] [address]. All discharge instructions reviewed with patient and/or family. Voiced understanding. Scripts ALPRAZolam (ALPRAZolam) 0.25 Mg Tablet 0.25 MG PO BID PRN for ANXIETY for 5 Days, #10 TAB 0 Refills Prov: MARY JANE PEREZ MD 08/27/22 Haloperidol (Haloperidol) 5 Mg Tablet 5 MG PO UD for Tics for 16 Days, #24 TAB 0 Refills Take 2.5 mg (1/2 pill) by mouth each morning and 5 mg at bedtime Prov: MARY JANE PEREZ MD 08/27/22 MARY JANE PEREZ MD Aug 27, 2022 18:48
[2022-08-27] MEDS ORDERED: RX-OFLOXACIN 0.3% OPHTH SOLN 5 ML OP STA (19:02)
[2022-08-27] MEDS ORDERED: ALPR0.254 PO (19:15)
[2022-08-27] MEDS ORDERED: HALO5TAB PO (19:15)
[2022-08-27 19:20] VITALS: BP 138/98
== END 2022-08-27 19:20 | disposition home or self-care (01) ==
LOC: EDUNIT# 18:32 → ER FS 18:34
DX: S05.01XA Injury of conjunctiva and corneal abrasion without foreign body, right eye, initial encounter (principal); F95.9 Tic disorder, unspecified; F43.9 Reaction to severe stress, unspecified; Z28.310 Unvaccinated for COVID-19; X58.XXXA Exposure to other specified factors, initial encounter
CPT/HCPCS: 99281

== ENCOUNTER 2022-09-25 21:23 | Emergency (ER) | payer MEDICAID, OTHER ==
[~2022-09-25] VITALS: Ht 165 cm; Wt 85.6 kg
[~2022-09-25 21:23] MED LIST changes: +ALPR0.254 PO; +HALO5TAB PO
[2022-09-25 21:51] LABS: BASOPHILS % (AUTO) 0 % (0-10); EOSINOPHILS # (AUTO) 0.1 10^3/uL (0.0-0.3); EOSINOPHILS % (AUTO) 1 % (0-10); HEMATOCRIT 43 % (35-52); HEMOGLOBIN 14.7 g/dL (11.5-16.0); LYMPHOCYTES # (AUTO) 3.1 10^3/uL (1.0-4.0); LYMPHOCYTES % (AUTO) 26 % (12-44); MEAN CORPUSCULAR HEMOGLOBIN 32 pg (25-34); MEAN CORPUSCULAR HGB CONC 35 g/dL (32-36); MEAN CORPUSCULAR VOLUME 92 fL (80-99); MEAN PLATELET VOLUME 10.2 fL (9.0-12.2); MONOCYTES # (AUTO) 1.1 10^3/uL (0.0-1.0); MONOCYTES % (AUTO) 10 % (0-12); NEUTROPHILS # (AUTO) 7.5 10^3/uL (1.8-7.8); NEUTROPHILS % (AUTO) 63 % (42-75); PLATELET COUNT 360 10^3/uL (130-400); WHITE BLOOD COUNT 11.9 10^3/uL (4.3-11.0)
[2022-09-25 21:52] LABS: BILIRUBIN,URINE NEGATIVE (NEGATIVE); CLARITY,URINE CLEAR; COLOR,URINE YELLOW; GLUCOSE, URINE (UA) NEGATIVE (NEGATIVE); KETONES,URINE NEGATIVE (NEGATIVE); LEUKOCYTE ESTERASE ,URINE NEGATIVE (NEGATIVE); NITRITE,URINE NEGATIVE (NEGATIVE); PROTEIN,URINE NEGATIVE (NEGATIVE)
[2022-09-25 21:56] LABS: BACTERIA,URINE TRACE /HPF
[2022-09-25 22:03] LABS: AMPHETAMINE SCREEN, URINE NEGATIVE (NEGATIVE); BARBITURATE SCREEN URINE NEGATIVE (NEGATIVE); BENZODIAZEPINES SCREEN URINE NEGATIVE (NEGATIVE); CANNABINOID SCREEN, URINE NEGATIVE (NEGATIVE); COCAINE SCREEN URINE NEGATIVE (NEGATIVE); METHADONE STAT NEGATIVE (NEGATIVE); OPIATE SCREEN URINE NEGATIVE (NEGATIVE); OXYCODONE STAT NEGATIVE (NEGATIVE); PROPOXYPHENE STAT NEGATIVE (NEGATIVE); TRICYCLIC ANTIDEPRESSANTS SCRE NEGATIVE (NEGATIVE)
[2022-09-25 22:11] LABS: ALKALINE PHOSPHATASE 88 U/L (40-136); BILIRUBIN,TOTAL 0.3 MG/DL (0.1-1.0); BUN/CREATININE RATIO 18; CALCIUM 9.5 MG/DL (8.5-10.1); CARBON DIOXIDE 25 MMOL/L (21-32); CHLORIDE 101 MMOL/L (98-107); GFR ESTIMATED 117; GLUCOSE 99 MG/DL (70-105); POTASSIUM 3.9 MMOL/L (3.6-5.0); SODIUM 138 MMOL/L (135-145)
[2022-09-25 22:12] LABS: ALANINE AMINOTRANSFERASE 10 U/L (0-55); ALBUMIN 4.3 GM/DL (3.2-4.5); TOTAL PROTEIN 7.9 GM/DL (6.4-8.2)
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
[2022-09-26 01:07] VITALS: BP 136/85
== END 2022-09-26 01:07 | disposition home or self-care (01) ==
LOC: EDUNIT# 21:23 → ER FS 21:28
DX: F32.A Depression, unspecified (principal)
CPT/HCPCS: 36415; 80053; 80306; 81000; 85025; 99284; G0480; 80320; 93005

== ENCOUNTER 2023-02-10 18:55 | Emergency (ER) | payer MEDICAID ==
[~2023-02-10] VITALS: Ht 157.4 cm; Wt 90.8 kg
--- NOTE | 2023-02-10 19:08 | ED Abdominal Pain ---
General Stated Complaint: ABD PAIN History of Present Illness Date Seen by Provider: Feb 10, 2023 Time Seen by Provider: 19:07 Initial Comments 37-year-old female with PMH of Tourette's/anxiety/depression/gallbladder removal/hysterectomy, is here with complaints of diffuse abdominal pain which is more in the right lower quadrant, which began a couple days ago. Patient has associated diarrhea which began today and nausea. Denies actual vomiting, fever and chills, chest pain, shortness of breath, palpitations. Patient's last meal was dinnertime and she was able to eat a full meal without any issues. Allergies and Home Medications Allergies Coded Allergies: Antihistamines - Alkylamine (Verified Allergy, Severe, SEIZURES, 07/09/20) aspirin (Verified Allergy, Severe, SEIZURES, pt has rec Ketorolac in the past, 07/15/20) phenobarbital (Verified Allergy, Severe, SEIZURES, 07/09/20) Patient Home Medication List Home Medication List Reviewed: Yes ALPRAZolam (ALPRAZolam) 0.25 Mg Tablet, 0.25 MG PO BID PRN for ANXIETY Prescribed by: MARY JANE PEREZ on 08/27/221915 Dicyclomine HCl (Dicyclomine HCl) 20 Mg Tablet, 20 MG PO Q6H PRN for abdominal pain/nausea Prescribed by: MARY JANE PEREZ on 09/05/211916 Escitalopram Oxalate (Lexapro) 20 Mg Tablet, 20 MG PO DAILY, (Reported) Entered as Reported by: BRAYDEN STREETER on 07/09/20 154 Haloperidol (Haloperidol) 0.5 Mg Tablet, 0.25 MG PO DAILY, (Reported) Entered as Reported by: BRAYDEN STREETER on 07/09/201541 Haloperidol (Haloperidol) 0.5 Mg Tablet, 0.5 MG PO HS, (Reported) Entered as Reported by: BRAYDEN STREETER on 07/09/20 154 Haloperidol (Haloperidol) 5 Mg Tablet, 5 MG PO UD Prescribed by: MARY JANE PEREZ on 08/27/221914 Hydrocodone/Acetaminophen (Hydrocodone-Acetamin 5-325 mg) 1 Each Tablet, 1 TAB PO Q4H PRN for PAIN-MODERATE (5-7) Prescribed by: GUNNAR DUBON on 07/15/20 1026 Hydrocodone/Acetaminophen (Hydrocodone-Acetamin 5-325 mg) 1 Each Tablet, 1 EACH PO Q4H Prescribed by: CLEMENT HOPKINS on 05/12/21 232 Hydrocodone/Acetaminophen (Hydrocodone-Acetamin 5-325 mg) 1 Each Tablet, 1 TAB PO Q4H PRN for PAIN-MODERATE (5-7) Prescribed by: BAILEE MCKINNEY on 08/01/21 0051 Ibuprofen (Ibuprofen) 600 Mg Tablet, 600 MG PO Q6H Prescribed by: GUNNAR DUBON on 07/15/20 1026 Ibuprofen (Ibuprofen) 800 Mg Tablet, 800 MG PO Q8H PRN for PAIN Prescribed by: CLEMENT HOPKINS on 05/12/21 2320 Ibuprofen (Ibuprofen) 800 Mg Tablet, 800 MG PO Q8H PRN for PAIN Prescribed by: Jolene khanna on 03/19/222130 Multivitamin (Multivitamin) 1 Each Tablet, 1 EACH PO DAILY, (Reported) Entered as Reported by: BRAYDEN STREETER on 07/09/20 1542 Ondansetron (Ondansetron Odt) 4 Mg Tab.rapdis, 4 MG PO Q6H PRN for NAUSEA/VOMITING Prescribed by: MARY JANE PEREZ on 09/05/21 191 Pantoprazole Sodium (Protonix) 40 Mg Tablet.dr, 40 MG PO DAILY, (Reported) Entered as Reported by: BRAYDEN STREETER on 07/09/20 1542 Prednisone (Prednisone) 50 Mg Tab, 50 MG PO DAILY Prescribed by: CLEMENT HOPKINS on 03/06/212105 Review of Systems Review of Systems Constitutional: see HPI Gastrointestinal: Abdominal Pain, Nausea Past Waizxsb-Mwgzlj-Uxpdgo Hx Immunizations Up To Date First/Initial COVID19 Vaccinat: 2020 Second COVID19 Vaccination Issac: 2020 Third COVID19 Vaccination Date: 2020 Seasonal Allergies Seasonal Allergies: Yes Past Medical History Surgery/Hospitalization HX: TOURETTE SYNDROME, ANXIETY, HYSTERECTOMY, TUBIAL LIGATION, HERNIA, DEPRESSION Surgeries: Yes (UMBILICAL HERNIA REPAIR) Abdominal, Gallbladder, Tubal Ligation Respiratory: No Cardiac: No Neurological: Yes (LAST SEIZURE AT AGE 1) Seizure Disorder Reproductive Disorders: Yes (CHRONIC PELVIC PAIN AND IRREGULAR AND HEAVY BLEEDING ACCORDING TO PT) Female Reproductive Disorders: Menstrual Problems 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 Sexually Transmitted Disease: No HIV/AIDS: No Genitourinary: No Gastrointestinal: No Musculoskeletal: No Endocrine: No HEENT: No Loss of Vision: Denies Hearing Impairment: Denies Cancer: No Psychosocial: Yes (SUIDIDAL IDEATION-ADMITTED TO [facility] 01/01/20) Suicide Attempts, Depression Integumentary: No Blood Disorders: No Adverse Reaction/Blood Tranf: No (N/A) Physical Exam Vital Signs Vital Signs - First Documented 02/10/23 19:10 Temp 36.4 Pulse 87 Resp 18 B/P (MAP) 140/96 (111) Pulse Ox 94 O2 Delivery Room Air Capillary Refill : Height/Weight/BMI Height: 5'2.00" Weight: 200lbs. oz. 90.371431rm; 31.00 BMI Method:Stated General Appearance: no apparent distress HEENT: PERRL/EOMI Neck: full range of motion, supple, normal inspection Respiratory: chest non-tender, lungs clear, normal breath sounds Cardiovascular: regular rate, rhythm Gastrointestinal: normal bowel sounds, soft, tenderness (Diffuse abdominal pain more in the RLQ) Back: normal inspection, no CVA tenderness, no vertebral tenderness Neurologic/Psychiatric: no motor/sensory deficits, alert, oriented x 3 Skin: normal color Focused Exam Lactate Level 02/10/23 19:50: Lactic Acid Level 1.13 Lactic Acid Level Laboratory Tests Test 02/10/23 19:50 Lactic Acid Level 1.13 MMOL/L (0.50-2.00) Progress/Results/Core Measures Results/Orders Lab Results Laboratory Tests Test 02/10/23 19:29 02/10/23 19:50 Range/Units Urine Color YELLOW Urine Clarity SL CLOUDY Urine pH 6.0 5-9 Urine Specific [place] >=1.030 1.016-1.022 Urine Protein NEGATIVE NEGATIVE Urine Glucose (UA) NEGATIVE NEGATIVE Urine Ketones NEGATIVE NEGATIVE Urine Nitrite NEGATIVE NEGATIVE Urine Bilirubin NEGATIVE NEGATIVE Urine Urobilinogen 0.2 < = 1.0 MG/DL Urine Leukocyte Esterase NEGATIVE NEGATIVE Urine RBC (Auto) NEGATIVE NEGATIVE Urine RBC NONE /HPF Urine WBC 2-5 /HPF Urine Squamous Epithelial Cells 10-25 H /HPF Urine Crystals NONE /LPF Urine Bacteria LARGE H /HPF Urine Casts NONE /LPF Urine Mucus LARGE H /LPF Urine Culture Indicated NO Urine Test NEGATIVE NEGATIVE Urine Opiates Screen NEGATIVE NEGATIVE Urine Oxycodone Screen NEGATIVE NEGATIVE Urine Methadone Screen NEGATIVE NEGATIVE Urine Propoxyphene Screen NEGATIVE NEGATIVE Urine Barbiturates Screen NEGATIVE NEGATIVE Ur Tricyclic Antidepressants Screen NEGATIVE NEGATIVE Urine Phencyclidine Screen NEGATIVE NEGATIVE Urine Amphetamines Screen NEGATIVE NEGATIVE Urine Methamphetamines Screen NEGATIVE NEGATIVE Urine Benzodiazepines Screen POSITIVE H NEGATIVE Urine Cocaine Screen NEGATIVE NEGATIVE Urine Cannabinoids Screen NEGATIVE NEGATIVE White Blood Count 10.1 4.3-11.0 10^3/uL Red Blood Count 4.19 3.80-5.11 10^6/uL Hemoglobin 13.3 11.5-16.0 g/dL Hematocrit 40 35-52 % Mean Corpuscular Volume 95 80-99 fL Mean Corpuscular Hemoglobin 32 25-34 pg Mean Corpuscular Hemoglobin Concent 33 32-36 g/dL Red Cell Distribution Width 12.5 10.0-14.5 % Platelet Count 280 130-400 10^3/uL Mean Platelet Volume 10.7 9.0-12.2 fL Immature Granulocyte % (Auto) 0 % Neutrophils (%) (Auto) 60 42-75 % Lymphocytes (%) (Auto) 28 12-44 % Monocytes (%) (Auto) 9 0-12 % Eosinophils (%) (Auto) 3 0-10 % Basophils (%) (Auto) 1 0-10 % Neutrophils # (Auto) 6.1 1.8-7.8 10^3/uL Lymphocytes # (Auto) 2.8 1.0-4.0 10^3/uL Monocytes # (Auto) 0.9 0.0-1.0 10^3/uL Eosinophils # (Auto) 0.3 0.0-0.3 10^3/uL Basophils # (Auto) 0.1 0.0-0.1 10^3/uL Immature Granulocyte # (Auto) 0.0 0.0-0.1 10^3/uL Sodium Level 141 135-145 MMOL/L Potassium Level 3.7 3.6-5.0 MMOL/L Chloride Level 105 98-107 MMOL/L Carbon Dioxide Level 26 21-32 MMOL/L Anion Gap 10 5-14 MMOL/L Blood Urea Nitrogen 13 7-18 MG/DL Creatinine 0.78 0.60-1.30 MG/DL Estimat Glomerular Filtration Rate 99 BUN/Creatinine Ratio 17 Glucose Level 97 70-105 MG/DL Lactic Acid Level 1.13 0.50-2.00 MMOL/L Calcium Level 9.2 8.5-10.1 MG/DL Corrected Calcium 9.3 8.5-10.1 MG/DL Magnesium Level 2.1 1.6-2.4 MG/DL Total Bilirubin 0.2 0.1-1.0 MG/DL Aspartate Amino Transf (AST/SGOT) 14 5-34 U/L Alanine Aminotransferase (ALT/SGPT) 11 0-55 U/L Alkaline Phosphatase 79 40-136 U/L Total Protein 7.2 6.4-8.2 GM/DL Albumin 3.9 3.2-4.5 GM/DL Lipase 26 8-78 U/L My Orders Orders - CHYNA KIRK MD Drug Screen Stat (Urine) (02/10/23 19:08) Hcg,Qualitative Urine (02/10/23 19:08) Ua Culture If Indicated (02/10/23 19:08) Cbc With Automated Diff (02/10/23 19:35) Comprehensive Metabolic Panel (02/10/23 19:35) Lactic Acid Analyzer (02/10/23 19:35) Lipase (02/10/23 19:35) Magnesium (02/10/23 19:35) Ct Abdomen/Pelvis W (02/10/23 19:36) Ondansetron Injection (Zofran Injectio (02/10/23 19:45) Ed Iv/Invasive Line Start (02/10/23 19:43) Fentanyl Inj (Sublimaze Injection) (02/10/23 19:45) Iohexol Injection (Omnipaque 350 Mg/Ml 1 (02/10/23 20:00) Received Contrast (Hold Metformin- Contr (02/10/23 20:00) Sodium Chloride Flush (Catheter Flush Sy (02/10/23 20:00) Ns (Ivpb) (Sodium Chloride 0.9% Ivpb Bag (02/10/23 20:00) Medications Given in ED Current Medications Medications Dose Ordered Sig/Silver Route Start Time Stop Time Status Last Admin Dose Admin Fentanyl Citrate 50 mcg ONCE ONCE IVP 02/10/23 19:45 02/10/23 19:46 DC 02/10/23 19:58 50 MCG Iohexol 100 ml ONCE ONCE IV 02/10/23 20:00 02/10/23 20:01 DC 02/10/23 20:00 80 ML Ondansetron HCl 4 mg ONCE ONCE IVP 02/10/23 19:45 02/10/23 19:46 DC 02/10/23 19:58 4 MG Sodium Chloride 10 ml NEEDED PRN IV 02/10/23 20:00 02/10/23 20:03 10 ML Sodium Chloride 100 ml ONCE ONCE IV 02/10/23 20:00 02/10/23 20:01 DC 02/10/23 20:00 100 ML Vital Signs/I&O 02/10/23 19:10 Temp 36.4 Pulse 87 Resp 18 B/P (MAP) 140/96 (111) Pulse Ox 94 O2 Delivery Room Air Progress Progress Note : Progress Note 1. VIRAL ENTEROCOLITIS: - CT ABD & PELVIS:. Question very mild areas of small bowel wall thickening may reflect nonspecific enteritis. No obstructive feature. Normal appendix. Cholecystectomy and hysterectomy. - CBC/ CMP/ Lipase/ UDS/ UA: normal - Reassurance given. Self limited. Advised bland diet and adequate hydration. - Follow up with PCP in 7 to 10 days - Zofran prescription given -The patient was seen in the ED, and treated appropriately to presentation at a specific point in time. Patient is informed that there is a possibility that disease and illness can evolve and change in acuity rapidly or slowly after patient is discharged from the ER. Precautionary advice given to the patient for immediate return to ER if symptoms worsen or do not resolve, and to seek emergency care sooner rather than later. Pt also advised on the importance of PCP follow up and compliance with management and follow up plan with PCP and/or specialist, as this is part of the management plan. Pt verbally expressed understanding. Diagnostic Imaging Diagonstic Imaging: CT Plain Films/CT/US/NM/MRI: abdomen, pelvis Comments [facility]. [place], [place] NAME: KAYLA MCCULLOUGH [facility] REC#: [id number] PT STATUS: REG ER : 1985 PHYSICIAN: CHYNA KIRK MD ADMIT DATE: 02/10/23/ER FS Draft Date of Exam:02/10/23 CT ABDOMEN/PELVIS W PROCEDURE: CT abdomen and pelvis with contrast. TECHNIQUE: Multiple contiguous axial images were obtained through the abdomen and pelvis after administration of intravenous contrast. Auto Exposure Controls were utilized during the CT exam to meet ALARA standards for radiation dose reduction. All CT scans use one or more of the following dose optimizing techniques: automated exposure control, MA and/or KvP adjustment based on patient size and exam type or iterative reconstruction. INDICATION: 37-year-old female, right lower quadrant pain starting earlier today. CORRELATION STUDY: 09/05/2021 FINDINGS: It is noted that patient had episode of vomiting during the initial CT scan with repeat imaging obtained due to motion. LOWER THORAX: Clear. LIVER: Unremarkable. GALLBLADDER: Cholecystectomy. SPLEEN: Unremarkable small splenule inferior hilum. PANCREAS: Unremarkable. ADRENAL GLANDS: Unremarkable. KIDNEYS: Normal configuration. No calcification or obstruction. ABDOMINAL AORTA: Unremarkable, nonaneurysmal. GASTROINTESTINAL TRACT: Stomach is mild to moderately distended with retained gastric contents. A few mildly prominent fluid and gas-filled loops of small bowel without transition to suggest obstruction. Colon is largely decompressed. Normal appendix is present. No abdominal ascites and/or free air. URINARY BLADDER: Decompressed. REPRODUCTIVE: Hysterectomy. OSSEOUS STRUCTURES: Nonacute pars articularis defect L5 level. OTHER: None. IMPRESSION: 1. Question very mild areas of small bowel wall thickening may reflect nonspecific enteritis. No obstructive feature. Normal appendix. 2. Cholecystectomy and hysterectomy. Dictated on workstation # [id number] Dict: 02/10/232019 Trans: 02/10/232038 PIPE [id number] Interpreted by: AB VITAL DO Electronically signed by: Departure Impression Primary Impression: Viral enterocolitis Disposition: HOME, SELF-CARE Condition: Stable Departure-Patient Inst. Referrals: NO,LOCAL PHYSICIAN (PCP/Family) Primary Care Physician Patient Instructions: Viral gastroenteritis in adults, Viral Gastroenteritis, Adult (DC) Add. Discharge Instructions: - Reassurance given. Self limited. Advised bland diet and adequate hydration. - Follow up with PCP in 7 to 10 days - Zofran prescription given Scripts Ondansetron (Ondansetron Odt) 4 Mg Tab.rapdis 4 MG SL Q6H PRN for NAUSEA/VOMITING for 5 Days, #20 TAB Prov: CHYNA KIRK MD 02/10/23 CHYNA KIRK MD Feb 10, 2023 19:08
[2023-02-10 19:36] LABS: BILIRUBIN,URINE NEGATIVE (NEGATIVE); CLARITY,URINE SL CLOUDY; COLOR,URINE YELLOW; GLUCOSE, URINE (UA) NEGATIVE (NEGATIVE); KETONES,URINE NEGATIVE (NEGATIVE); LEUKOCYTE ESTERASE ,URINE NEGATIVE (NEGATIVE); NITRITE,URINE NEGATIVE (NEGATIVE); PROTEIN,URINE NEGATIVE (NEGATIVE)
[2023-02-10 19:44] LABS: BACTERIA,URINE LARGE /HPF
[2023-02-10 19:45] LABS: AMPHETAMINE SCREEN, URINE NEGATIVE (NEGATIVE); BARBITURATE SCREEN URINE NEGATIVE (NEGATIVE); BENZODIAZEPINES SCREEN URINE POSITIVE (NEGATIVE); CANNABINOID SCREEN, URINE NEGATIVE (NEGATIVE); COCAINE SCREEN URINE NEGATIVE (NEGATIVE); HCG,QUALITATIVE URINE NEGATIVE (NEGATIVE); METHADONE STAT NEGATIVE (NEGATIVE); OPIATE SCREEN URINE NEGATIVE (NEGATIVE); OXYCODONE STAT NEGATIVE (NEGATIVE); PROPOXYPHENE STAT NEGATIVE (NEGATIVE); TRICYCLIC ANTIDEPRESSANTS SCRE NEGATIVE (NEGATIVE)
[2023-02-10] MEDS ORDERED: ONDANSETRON 4 MG/2 ML (SDV) Z0FRAN IVP ONE (19:45)
[2023-02-10] MEDS ORDERED: fentaNYL INJ 100 MCG/2 ML AMP IVP ONE (19:45)
[2023-02-10 19:55] LABS: BASOPHILS # (AUTO) 0.1 10^3/uL (0.0-0.1); BASOPHILS % (AUTO) 1 % (0-10); EOSINOPHILS # (AUTO) 0.3 10^3/uL (0.0-0.3); EOSINOPHILS % (AUTO) 3 % (0-10); HEMATOCRIT 40 % (35-52); HEMOGLOBIN 13.3 g/dL (11.5-16.0); LYMPHOCYTES # (AUTO) 2.8 10^3/uL (1.0-4.0); LYMPHOCYTES % (AUTO) 28 % (12-44); MEAN CORPUSCULAR HEMOGLOBIN 32 pg (25-34); MEAN CORPUSCULAR HGB CONC 33 g/dL (32-36); MEAN CORPUSCULAR VOLUME 95 fL (80-99); MEAN PLATELET VOLUME 10.7 fL (9.0-12.2); MONOCYTES # (AUTO) 0.9 10^3/uL (0.0-1.0); MONOCYTES % (AUTO) 9 % (0-12); NEUTROPHILS # (AUTO) 6.1 10^3/uL (1.8-7.8); NEUTROPHILS % (AUTO) 60 % (42-75); PLATELET COUNT 280 10^3/uL (130-400); WHITE BLOOD COUNT 10.1 10^3/uL (4.3-11.0)
[2023-02-10] MEDS ORDERED: IOHEXOL 350 MG/ML 100 ML (OMNIPAQUE 350) VIAL IV ONE (20:00)
[2023-02-10] MEDS ORDERED: NS 100 ML (IVPB) BAG IV ONE (20:00)
[2023-02-10] MEDS ORDERED: CATHETER FLUSH 10 ML SYR IV PRN (20:00)
[2023-02-10] MEDS ORDERED: HOLD METFORMIN - RECEIVED CONTRAST 20 ML VIAL IV SCH (20:00)
[2023-02-10 20:20] LABS: POTASSIUM 3.7 MMOL/L (3.6-5.0)
[2023-02-10 20:21] LABS: ALBUMIN 3.9 GM/DL (3.2-4.5); BILIRUBIN,TOTAL 0.2 MG/DL (0.1-1.0); CALCIUM 9.2 MG/DL (8.5-10.1); CREATININE SERUM 0.78 MG/DL (0.60-1.30); MAGNESIUM 2.1 MG/DL (1.6-2.4); TOTAL PROTEIN 7.2 GM/DL (6.4-8.2)
--- NOTE | 2023-02-10 20:39 | Diagnostic Imaging Report ---
PROCEDURE: CT abdomen and pelvis with contrast. TECHNIQUE: Multiple contiguous axial images were obtained through the abdomen and pelvis after administration of intravenous contrast. Auto Exposure Controls were utilized during the CT exam to meet ALARA standards for radiation dose reduction. All CT scans use one or more of the following dose optimizing techniques: automated exposure control, MA and/or KvP adjustment based on patient size and exam type or iterative reconstruction. INDICATION: 37-year-old female, right lower quadrant pain starting earlier today. CORRELATION STUDY: 09/05/2021 FINDINGS: It is noted that patient had episode of vomiting during the initial CT scan with repeat imaging obtained due to motion. LOWER THORAX: Clear. LIVER: Unremarkable. GALLBLADDER: Cholecystectomy. SPLEEN: Unremarkable small splenule inferior hilum. PANCREAS: Unremarkable. ADRENAL GLANDS: Unremarkable. KIDNEYS: Normal configuration. No calcification or obstruction. ABDOMINAL AORTA: Unremarkable, nonaneurysmal. GASTROINTESTINAL TRACT: Stomach is mild to moderately distended with retained gastric contents. A few mildly prominent fluid and gas-filled loops of small bowel without transition to suggest obstruction. Colon is largely decompressed. Normal appendix is present. No abdominal ascites and/or free air. URINARY BLADDER: Decompressed. REPRODUCTIVE: Hysterectomy. OSSEOUS STRUCTURES: Nonacute pars articularis defect L5 level. OTHER: None. IMPRESSION: 1. Question very mild areas of small bowel wall thickening may reflect nonspecific enteritis. No obstructive feature. Normal appendix. 2. Cholecystectomy and hysterectomy. Dictated by: Dictated on workstation # [id number]
[2023-02-10] MEDS ORDERED: ONDA4TAB11 SL (20:58)
[2023-02-10 21:00] VITALS: BP 134/90
[2023-02-10] MEDS ORDERED: ESCI-2 PO (22:39)
[2023-02-10] MEDS ORDERED: TRAM50TA3 PO (22:39)
== END 2023-02-10 21:00 | disposition home or self-care (01) ==
LOC: EDUNIT# 18:55 → ER FS 18:57
DX: A08.4 Viral intestinal infection, unspecified (principal); Z87.19 Personal history of other diseases of the digestive system; Z98.890 Other specified postprocedural states
CPT/HCPCS: 36415; 74177; 80053; 80306; 81000; 83605; 83690; 83735; 84703; 85025; Q9967

== ENCOUNTER 2023-04-17 19:13 | Emergency (ER) | payer MEDICAID ==
[~2023-04-17] VITALS: Ht 157.4 cm; Wt 85.5 kg
[~2023-04-17 19:13] MED LIST changes: +ESCI-2 PO; +ONDA4TAB11 SL; +TRAM50TA3 PO
[2023-04-17] MEDS ORDERED: KETOROLAC INJ 15 MG/ML VIAL IVP STA (19:25)
[2023-04-17] MEDS ORDERED: ONDANSETRON INJECTION 4 MG/2 ML (SDV) IVP STA (19:25)
[2023-04-17] MEDS ORDERED: NS IV 1000 ML 1,000 ML IV STA (19:25)
[2023-04-17 19:31] LABS: BILIRUBIN,URINE NEGATIVE (NEGATIVE); CLARITY,URINE CLEAR; COLOR,URINE YELLOW; GLUCOSE, URINE (UA) NEGATIVE (NEGATIVE); KETONES,URINE NEGATIVE (NEGATIVE); LEUKOCYTE ESTERASE ,URINE NEGATIVE (NEGATIVE); NITRITE,URINE NEGATIVE (NEGATIVE); PROTEIN,URINE NEGATIVE (NEGATIVE)
--- NOTE | 2023-04-17 19:31 | ED Abdominal Pain ---
General Chief Complaint: Abdominal/GI Problems Stated Complaint: STABBING PAIN ON RIGHT SIDE Source of Information: Patient History of Present Illness Date Seen by Provider: Apr 17, 2023 Time Seen by Provider: 19:17 Initial Comments 37-year-old female presenting with complaints of sudden onset right-sided flank pain. She states this been going on since this morning. She had to leave work because of the pain. She tried ibuprofen 800 mg but has not had any improvement. She had nausea especially after eating right before coming to the emergency department. She has previously had a cholecystectomy hysterectomy tubal ligation. She denies any vomiting but does feel nauseated. She denies pain with urination. She has not had a fever or chills. 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 Timing/Duration: 12 Hours Severity/Quality: Severe, Sharp, Stabbing Location: Flank (Right flank) Activities at Onset: None Modifying Factors: Worsens With Movement Associated Symptoms: No Back Pain, No Chest Pain, No Diaphoresis, No Fever/Chills, No Fatigue, No Headache, No Heartburn; Nausea/Vomiting; No Rash, No Shortness of Air, No Swelling/Mass in Abdomen, No Syncope, No Weakness Allergies and Home Medications Allergies Coded Allergies: Antihistamines - Alkylamine (Verified Allergy, Severe, SEIZURES, 07/09/20) aspirin (Verified Allergy, Severe, SEIZURES, pt has rec Ketorolac in the past, 07/15/20) phenobarbital (Verified Allergy, Severe, SEIZURES, 07/09/20) Patient Home Medication List Home Medication List Reviewed: Yes Escitalopram Oxalate (Escitalopram Oxalate) 10 Mg Tablet, 10 MG PO DAILY, (Reported) Entered as Reported by: WAYNE ESTEVEZ on 02/10/232238 Haloperidol (Haloperidol) 0.5 Mg Tablet, 0.25 MG PO DAILY, (Reported) Entered as Reported by: BRAYDEN STREETER on 07/09/20 154 Hydrocodone/Acetaminophen (Hydrocodone-Acetamin 5-325 mg) 5 Mg-325 Mg Tablet, 1 TAB PO Q6H PRN for PAIN SEVERE Prescribed by: MARY JANE PEREZ on 04/17/232030 Methocarbamol (Methocarbamol) 750 Mg Tablet, 750 MG PO Q8H PRN for abdominal wall pain/spasm Prescribed by: MARY JANE PEREZ on 04/17/232029 Multivitamin (Multivitamin) 1 Each Tablet, 1 EACH PO DAILY, (Reported) Entered as Reported by: BRAYDEN STREETER on 07/09/20 154 Ondansetron (Ondansetron Odt) 4 Mg Tab.rapdis, 4 MG SL Q6H PRN for NAUSEA/VOMITING Prescribed by: CHYNA KIRK MD on 02/10/232057 Pantoprazole Sodium (Protonix) 40 Mg Tablet.dr, 40 MG PO DAILY, (Reported) Entered as Reported by: BRAYDEN STREETER on 07/09/20 154 Tramadol HCl (Tramadol HCl) 50 Mg Tablet, 50-100 TAB PO QID PRN for PAIN, (Reported) Entered as Reported by: WAYNE ESTEVEZ on 02/10/232238 Review of Systems Review of Systems Constitutional: No chills, No fever EENTM: No Symptoms Reported Respiratory: No Symptoms Reported Cardiovascular: No Symptoms Reported Gastrointestinal: See HPI Genitourinary: Flank Pain Musculoskeletal: no symptoms reported Skin: no symptoms reported Psychiatric/Neurological: No Symptoms Reported Past Nntnvbm-Yuosrh-Bbdagl Hx Patient Social History Tobacco Use?: No Substance use?: No Alcohol Use?: No Pt feels they are or have been: No Immunizations Up To Date First/Initial COVID19 Vaccinat: 2020 Second COVID19 Vaccination Issac: 2020 Third COVID19 Vaccination Date: 2020 Seasonal Allergies Seasonal Allergies: Yes Past Medical History Surgery/Hospitalization HX: TOURETTE SYNDROME, ANXIETY, HYSTERECTOMY, TUBIAL LIGATION, HERNIA, DEPRESSION Surgeries: Yes (UMBILICAL HERNIA REPAIR) Abdominal, Gallbladder, Tubal Ligation Respiratory: No Cardiac: No Neurological: Yes (LAST SEIZURE AT AGE 1) Seizure Disorder Reproductive Disorders: Yes (CHRONIC PELVIC PAIN AND IRREGULAR AND HEAVY BLEEDING ACCORDING TO PT) Female Reproductive Disorders: Menstrual Problems [employer] History: Tubal Ligation Sexually Transmitted Disease: No HIV/AIDS: No Genitourinary: No Gastrointestinal: No Musculoskeletal: No Endocrine: No HEENT: No Loss of Vision: Denies Hearing Impairment: Denies Cancer: No Psychosocial: Yes (SUIDIDAL IDEATION-ADMITTED TO [facility] 01/01/20) Suicide Attempts, Depression Integumentary: No Blood Disorders: No Adverse Reaction/Blood Tranf: No (N/A) Physical Exam Vital Signs Vital Signs - First Documented 04/17/23 19:14 Temp 36.6 Pulse 83 Resp 16 B/P (MAP) 127/87 (100) Pulse Ox 97 O2 Delivery Room Air Capillary Refill : Height/Weight/BMI Height: 5'2.00" Weight: 200lbs. oz. 90.774730rq; 36.00 BMI Method:Stated General Appearance: WD/WN, no apparent distress Respiratory: chest non-tender, lungs clear, normal breath sounds, no respiratory distress, no accessory muscle use Cardiovascular: normal peripheral pulses, regular rate, rhythm Gastrointestinal: normal bowel sounds, soft, no pulsatile mass, guarding; No rebound; tenderness (right flank to RLQ) Rectal: deferred Back: no CVA tenderness Neurologic/Psychiatric: alert, oriented x 3 Skin: normal color, warm/dry Progress/Results/Core Measures Results/Orders Lab Results Laboratory Tests Test 04/17/23 19:14 04/17/23 19:22 Range/Units Urine Color YELLOW Urine Clarity CLEAR Urine pH 6.0 5-9 Urine Specific [place] <=1.005 1.016-1.022 Urine Protein NEGATIVE NEGATIVE Urine Glucose (UA) NEGATIVE NEGATIVE Urine Ketones NEGATIVE NEGATIVE Urine Nitrite NEGATIVE NEGATIVE Urine Bilirubin NEGATIVE NEGATIVE Urine Urobilinogen 0.2 < = 1.0 MG/DL Urine Leukocyte Esterase NEGATIVE NEGATIVE Urine RBC (Auto) NEGATIVE NEGATIVE Urine RBC NONE /HPF Urine WBC 10-25 H /HPF Urine Squamous Epithelial Cells >50 H /HPF Urine Crystals NONE /LPF Urine Bacteria LARGE H /HPF Urine Casts NONE /LPF Urine Mucus NEGATIVE /LPF Urine Culture Indicated NO White Blood Count 10.7 4.3-11.0 10^3/uL Red Blood Count 4.44 3.80-5.11 10^6/uL Hemoglobin 14.0 11.5-16.0 g/dL Hematocrit 42 35-52 % Mean Corpuscular Volume 94 80-99 fL Mean Corpuscular Hemoglobin 32 25-34 pg Mean Corpuscular Hemoglobin Concent 33 32-36 g/dL Red Cell Distribution Width 12.3 10.0-14.5 % Platelet Count 337 130-400 10^3/uL Mean Platelet Volume 10.3 9.0-12.2 fL Immature Granulocyte % (Auto) 0 % Neutrophils (%) (Auto) 53 42-75 % Lymphocytes (%) (Auto) 34 12-44 % Monocytes (%) (Auto) 9 0-12 % Eosinophils (%) (Auto) 3 0-10 % Basophils (%) (Auto) 1 0-10 % Neutrophils # (Auto) 5.7 1.8-7.8 10^3/uL Lymphocytes # (Auto) 3.6 1.0-4.0 10^3/uL Monocytes # (Auto) 0.9 0.0-1.0 10^3/uL Eosinophils # (Auto) 0.4 H 0.0-0.3 10^3/uL Basophils # (Auto) 0.1 0.0-0.1 10^3/uL Immature Granulocyte # (Auto) 0.0 0.0-0.1 10^3/uL Sodium Level 136 135-145 MMOL/L Potassium Level 3.8 3.6-5.0 MMOL/L Chloride Level 100 98-107 MMOL/L Carbon Dioxide Level 28 21-32 MMOL/L Anion Gap 8 5-14 MMOL/L Blood Urea Nitrogen 10 7-18 MG/DL Creatinine 0.68 0.60-1.30 MG/DL Estimat Glomerular Filtration Rate 114 BUN/Creatinine Ratio 15 Glucose Level 88 70-105 MG/DL Calcium Level 9.6 8.5-10.1 MG/DL Corrected Calcium 9.4 8.5-10.1 MG/DL Total Bilirubin 0.3 0.1-1.0 MG/DL Aspartate Amino Transf (AST/SGOT) 13 5-34 U/L Alanine Aminotransferase (ALT/SGPT) 9 0-55 U/L Alkaline Phosphatase 86 40-136 U/L Total Protein 7.9 6.4-8.2 GM/DL Albumin 4.3 3.2-4.5 GM/DL Lipase 26 8-78 U/L My Orders Orders - MARY JANE PEREZ MD Comprehensive Metabolic Panel (04/17/23 19:25) Lipase (04/17/23 19:25) Ua Culture If Indicated (04/17/23 19:25) Ed Iv/Invasive Line Start (04/17/23 19:25) Cbc With Automated Diff (04/17/23 19:25) Ct Abdomen/Pelvis Wo (04/17/23 19:25) Ns Iv 1000 Ml (Ns Iv 1000 Ml) (04/17/23 19:25) Ondansetron Injection (Ondansetron Inj (04/17/23 19:25) Ketorolac Injection (Ketorolac Injection (04/17/23 19:25) Fentanyl Injection (Fentanyl Injection (04/17/23 20:26) Orphenadrine Inj (Ed Only) (Orphenadrine (04/17/23 20:26) Rx-Hydrocodone/Apap 5-325 Mg (Rx-Vicodin (04/17/23 20:30) Medications Given in ED Current Medications Medications Dose Ordered Sig/Silver Route Start Time Stop Time Status Last Admin Dose Admin Acetaminophen/ Hydrocodone Bitart 1 ea Q6H PRN PO 04/17/23 20:30 04/17/23 20:42 DC 04/17/23 20:33 1 EA Vital Signs/I&O 04/17/23 04/17/23 19:14 20:40 Temp 36.6 Pulse 83 82 Resp 16 16 B/P (MAP) 127/87 (100) 116/82 Pulse Ox 97 99 O2 Delivery Room Air Progress Progress Note #1: Progress Note Potential diagnosis of kidney stone, renal colic, pyelonephritis, UTI, appendicitis, colitis, diverticulitis. Obtain urinalysis to look for signs of infection. Establish peripheral IV access and send labs for complete blood count, comprehensive metabolic profile, lipase. CT scan of the abdomen and pelvis with out IV contrast to look for signs of pathology to be causing her right flank pain. Administer normal saline 1 L IV fluid bolus for hydration, Zofran 4 mg IV for nausea and vomiting, Toradol 15 mg IV for pain. Advised that if the Toradol was not helping we could go to a narcotic such as fentanyl. Progress Note #2: Time: 19:44 Progress Note Complete blood counts was not showing an elevated white blood cell count or signs of anemia. Her urinalysis was dilute and contaminated with epithelial cells but no nitrates or leukocyte esterase for UTI. Progress Note #3: Time: 20:18 Progress Note I reviewed the radiologist report on the CT scan of the abdomen pelvis without IV contrast. They reported that her appendix was normal and they did not appreciate any acute process to account for her symptoms. She does not have any obvious urinary calculi. Urinalysis was not showing blood for UTI or kidney stone. Will check on patient if her symptoms or not improved could add in the narcotic and a muscle relaxer. This may still be more musculoskeletal related or she may have a stomach bug but not seeing signs of acute surgical process in her abdomen or off of her labs. 2025 Since patient reports no improvement in her pain and symptoms will administer Norflex 60 mg IV as well as fentanyl 50 g IV to help with pain and muscle spasms. Sent with a take-home pack of hydrocodone 5/325 1 every 6 hours as needed for severe pain. Encouraged to stay well-hydrated and try and rest and follow-up bland low-fat diet. Given a note for being off work for the next 2 days. Diagnostic Imaging Diagonstic Imaging: CT Plain Films/CT/US/NM/MRI: abdomen, pelvis Comments NAME: KAYLA MCCULLOUGH [facility] REC#: [id number] PT STATUS: REG ER : 1985 PHYSICIAN: MARY JANE PEREZ MD ADMIT DATE: 04/17/23/ER FS Signed Date of Exam:04/17/23 CT ABDOMEN/PELVIS WO CT ABDOMEN/PELVIS WO TECHNIQUE: Unenhanced CT imaging of the abdomen and pelvis was performed. 2-D reformats are created and submitted for interpretation. Automatic exposure controls were utilized to optimize patient dose. INDICATION: Right flank pain COMPARISON: 02/10/2023 FINDINGS: Lower chest: The lung bases are clear. No pericardial or pleural effusion. Peritoneum: No free intraperitoneal air or fluid. Liver and biliary system: Unenhanced liver is normal. Cholecystectomy. Spleen and Pancreas: Spleen is normal. Unenhanced pancreas is grossly normal. Adrenals: Normal. tract: No renal or ureteral calculi. No obstructive uropathy. Urinary bladder is partially filled without wall thickening. Hysterectomy. GI tract: Stomach is partially filled with fluid and food. No bowel obstruction. No pericolonic inflammatory changes. Appendix is normal. Vasculature and Lymph nodes: Normal caliber aorta. No abdominal or pelvic lymphadenopathy. Musculoskeletal: No concerning osseous lesion. IMPRESSION: 1. No acute obstructive or inflammatory process. 2. No urinary tract calculi. Dictated by: Dictated on workstation # [id number] Dict: 04/17/232006 Trans: 04/17/232008 [facility] [id number] Interpreted by: MARTELL HUNT MD Electronically signed by: MARTELL HUNT MD 04/17/232008 Reviewed: Reviewed by Me Departure Impression Primary Impression: Acute right flank pain Additional Impression: Abdominal wall pain Disposition: 01 HOME, SELF-CARE Condition: Stable Departure-Patient Inst. Decision time for Depature: 20:29 Referrals: RONALDO MCCORMICK MD (PCP/Family) Primary Care Physician Patient Instructions: Flank Pain ED, Abdominal Pain, Adult ED Add. Discharge Instructions: Stay well-hydrated and drink plenty water and electrolyte drinks. Follow a low-fat bland diet. Continue with the medicine for pain and inflammation as well as muscle relaxer. Check back with the clinic if not having improvement in your symptoms or if having sudden worsening symptoms you could return for repeat evaluation. All discharge instructions reviewed with patient and/or family. Voiced under standing. Scripts Methocarbamol (Methocarbamol) 750 Mg Tablet 750 MG PO Q8H PRN for abdominal wall pain/spasm for 3 Days, #9 TAB 0 Refills Prov: MARY JANE PEREZ MD 04/17/23 Hydrocodone/Acetaminophen (Hydrocodone-Acetamin 5-325 mg) 5 Mg-325 Mg Tablet 1 TAB PO Q6H PRN for PAIN SEVERE for 2 Days, #8 TAB 0 Refills Prov: MARY JANE PEREZ MD 04/17/23 Work/School Note: Work Release Form Date Seen in the Emergency Department: Apr 17, 2023 Return to Work: Apr 21, 2023 Restrictions: No Restrictions MARY JANE PEREZ MD Apr 17, 2023 19:31
[2023-04-17 19:32] LABS: BASOPHILS # (AUTO) 0.1 10^3/uL (0.0-0.1); BASOPHILS % (AUTO) 1 % (0-10); EOSINOPHILS # (AUTO) 0.4 10^3/uL (0.0-0.3); EOSINOPHILS % (AUTO) 3 % (0-10); HEMATOCRIT 42 % (35-52); LYMPHOCYTES # (AUTO) 3.6 10^3/uL (1.0-4.0); LYMPHOCYTES % (AUTO) 34 % (12-44); MEAN CORPUSCULAR HEMOGLOBIN 32 pg (25-34); MEAN CORPUSCULAR HGB CONC 33 g/dL (32-36); MEAN CORPUSCULAR VOLUME 94 fL (80-99); MEAN PLATELET VOLUME 10.3 fL (9.0-12.2); MONOCYTES # (AUTO) 0.9 10^3/uL (0.0-1.0); MONOCYTES % (AUTO) 9 % (0-12); NEUTROPHILS # (AUTO) 5.7 10^3/uL (1.8-7.8); NEUTROPHILS % (AUTO) 53 % (42-75); PLATELET COUNT 337 10^3/uL (130-400); WHITE BLOOD COUNT 10.7 10^3/uL (4.3-11.0)
[2023-04-17 19:34] LABS: BACTERIA,URINE LARGE /HPF; SQUAMOUS EPITHELIAL CELL,UR >50 /HPF
[2023-04-17 19:45] LABS: ALBUMIN 4.3 GM/DL (3.2-4.5); BILIRUBIN,TOTAL 0.3 MG/DL (0.1-1.0); CALCIUM 9.6 MG/DL (8.5-10.1); CREATININE SERUM 0.68 MG/DL (0.60-1.30); POTASSIUM 3.8 MMOL/L (3.6-5.0); TOTAL PROTEIN 7.9 GM/DL (6.4-8.2)
--- NOTE | 2023-04-17 20:11 | Diagnostic Imaging Report ---
CT ABDOMEN/PELVIS WO TECHNIQUE: Unenhanced CT imaging of the abdomen and pelvis was performed. 2-D reformats are created and submitted for interpretation. Automatic exposure controls were utilized to optimize patient dose. INDICATION: Right flank pain COMPARISON: 02/10/2023 FINDINGS: Lower chest: The lung bases are clear. No pericardial or pleural effusion. Peritoneum: No free intraperitoneal air or fluid. Liver and biliary system: Unenhanced liver is normal. Cholecystectomy. Spleen and Pancreas: Spleen is normal. Unenhanced pancreas is grossly normal. Adrenals: Normal. tract: No renal or ureteral calculi. No obstructive uropathy. Urinary bladder is partially filled without wall thickening. Hysterectomy. GI tract: Stomach is partially filled with fluid and food. No bowel obstruction. No pericolonic inflammatory changes. Appendix is normal. Vasculature and Lymph nodes: Normal caliber aorta. No abdominal or pelvic lymphadenopathy. Musculoskeletal: No concerning osseous lesion. IMPRESSION: 1. No acute obstructive or inflammatory process. 2. No urinary tract calculi. Dictated by: Dictated on workstation # [id number]
[2023-04-17] MEDS ORDERED: fentaNYL INJECTION 100 MCG/2 ML VIAL IVP STA (20:26)
[2023-04-17] MEDS ORDERED: ORPHENADRINE 60 MG/2 ML AMP (ED ONLY) IVP STA (20:26)
[2023-04-17] MEDS ORDERED: METH-732 PO (20:30)
[2023-04-17] MEDS ORDERED: ACHD5005 PO (20:30)
[2023-04-17 20:40] VITALS: BP 116/82
== END 2023-04-17 20:42 | disposition home or self-care (01) ==
LOC: EDUNIT# 19:13 → ER FS 19:15
DX: R10.31 Right lower quadrant pain (principal); Z90.49 Acquired absence of other specified parts of digestive tract; Z28.310 Unvaccinated for COVID-19
CPT/HCPCS: 36415; 74176; 80053; 81000; 83690; 85025

== ENCOUNTER 2023-04-21 11:44 | Outpatient (CLI) | payer MEDICAID ==
[~2023-04-21] VITALS: Ht 157.5 cm; Wt 85.5 kg
[~2023-04-21 11:44] MED LIST changes: +METH-732 PO
[2023-04-21] MEDS ORDERED: CETI10TA17 PO (15:15)
[2023-04-21] MEDS ORDERED: ALPR0.254 PO (15:15)
== END 2023-04-21 15:27 | disposition home or self-care (01) ==
LOC: PREOP 11:44
PROVIDERS: ATTEND Surgery
DX: Z01.818 Encounter for other preprocedural examination (principal)

== ENCOUNTER 2023-06-08 16:19 | Emergency (ER) | payer SELFPAY ==
[~2023-06-08 16:19] MED LIST changes: +CETI10TA17 PO
[2023-06-08] MEDS ORDERED: KETOROLAC INJ 15 MG/ML VIAL IVP ONE (16:45)
--- NOTE | 2023-06-08 16:46 | ED Back Pain ---
General Chief Complaint: Back Problems Stated Complaint: LOWER BACK AND LEG PAIN (BOTH), NUMBNESS IN LEGS Nursing Triage Note: PT STATES FELL DOWN STEPS IN 2019 HIT TAIL BONE. THIS AM STATES HAS TAILBONE PAIN DOWN LEGS BILATERALLY STATES COULD NOT MOVE AND FEELING CAME BACK, STATES GAIT UNSTEADY. RATES PAIN 10/10. STATES HAS TAKEN NAPROXEN FOR PAIN. Source of Information: Patient Exam Limitations: No Limitations History of Present Illness Date Seen by Provider: Jun 08, 2023 Time Seen by Provider: 16:32 Initial Comments 38-year-old female presents emergency department today for chronic back pain. She states she has had back pain since a fall 2018 causing her to strike her tailbone onto the concrete. She had imaging at that time which showed no acute fracture or other abnormalities. She states since that time she has had problems with her low back and seen her primary doctor several times. She in fact has an appointment on Wednesday for discussion. Currently pain is worsened over the last day and 1/2 to 2 days has taken naproxen without much relief. She has not seen a back pain specialist seen her bilateral legs but this is resolved. No loss of bowel or bladder control or saddle anesthesia no leg weakness All other systems reviewed and negative except documented per HPI. Voice recognition software was used to help create this chart Allergies and Home Medications Allergies Coded Allergies: Antihistamines - Alkylamine (Verified Allergy, Severe, SEIZURES, 07/09/20) aspirin (Verified Allergy, Severe, SEIZURES, pt has rec Ketorolac in the past, 07/15/20) phenobarbital (Verified Allergy, Severe, SEIZURES, 07/09/20) Patient Home Medication List Home Medication List Reviewed: Yes ALPRAZolam (ALPRAZolam) 0.25 Mg Tablet, 0.25 MG PO BID, (Reported) Entered as Reported by: KANDI ALMANZA on 04/21/23 1515 Cetirizine HCl (Cetirizine HCl) 10 Mg Tablet, 10 MG PO DAILY, (Reported) Entered as Reported by: KANDI ALMANZA on 04/21/23 1515 Haloperidol (Haloperidol) 0.5 Mg Tablet, 0.25 MG PO DAILY, (Reported) Entered as Reported by: BRAYDEN STREETER on 07/09/20 1542 Multivitamin (Multivitamin) 1 Each Tablet, 1 EACH PO DAILY, (Reported) Entered as Reported by: BRAYDEN STREETER on 07/09/20 154 Pantoprazole Sodium (Protonix) 40 Mg Tablet., 40 MG PO DAILY, (Reported) Entered as Reported by: BRAYDEN STREETER on 07/09/201541 Review of Systems Constitutional: see HPI Past Dyysrmf-Noujsj-Umkzhg Hx Patient Social History Tobacco Use?: No Substance use?: No Alcohol Use?: No Pt feels they are or have been: No Immunizations Up To Date Influenza Vaccine Up-to-Date: No; Not Current First/Initial COVID19 Vaccinat: 2020 Second COVID19 Vaccination Issac: 2020 Third COVID19 Vaccination Date: 2020 Seasonal Allergies Seasonal Allergies: Yes Past Medical History Surgery/Hospitalization HX: TOURETTE SYNDROME, ANXIETY, HYSTERECTOMY, TUBIAL LIGATION, HERNIA, DEPRESSION Surgeries: Yes (UMBILICAL HERNIA REPAIR) Abdominal, Gallbladder, Tubal Ligation Respiratory: No Cardiac: No Neurological: Yes (LAST SEIZURE AT AGE 1) Seizure Disorder Reproductive Disorders: Yes (CHRONIC PELVIC PAIN AND IRREGULAR AND HEAVY BLEEDING ACCORDING TO PT) Female Reproductive Disorders: 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 Sexually Transmitted Disease: No HIV/AIDS: No Genitourinary: No Gastrointestinal: Yes Gastroesophageal Reflux Musculoskeletal: No Endocrine: No HEENT: No Loss of Vision: Denies Hearing Impairment: Denies Cancer: No Psychosocial: Yes (SUIDIDAL IDEATION-ADMITTED TO [facility] 01/01/20) Suicide Attempts, Depression Integumentary: No Blood Disorders: No Adverse Reaction/Blood Tranf: No (N/A) Physical Exam Vital Signs Vital Signs - First Documented 06/08/23 16:27 Temp 37.3 Pulse 89 Resp 16 B/P (MAP) 136/85 (102) Pulse Ox 94 Capillary Refill : Height, Weight, BMI Height: 5'2.00" Weight: 200lbs. oz. 90.960419px; 34.46 BMI Method:Stated General Appearance: No Apparent Distress, WD/WN HEENT: Normal ENT Inspection Neck: Non Tender, Supple Cardiovascular: Regular Rate, Rhythm, No Murmur Respiratory: Chest Non Tender, Lungs Clear, Normal Breath Sounds, No Accessory Muscle Use, No Respiratory Distress Back: Normal Inspection, No CVA Tenderness, Other (Paraspinal muscle tenderness in the lumbar region no midline tenderness. No skin changes) Neurologic/Psychiatric: Alert, Oriented x3, No Motor/Sensory Deficits Skin: Warm/Dry Progress/Results/Core Measures Results/Orders My Orders Orders - BEAN NOVOA DO Ketorolac Injection (Ketorolac Injection (06/08/23 16:45) Vital Signs/I&O 06/08/23 16:27 Temp 37.3 Pulse 89 Resp 16 B/P (MAP) 136/85 (102) Pulse Ox 94 Blood Pressure Mean: 102 Departure Communication (Admissions) Patient is hemodynamically stable with no red flag symptoms. No evidence for cauda equina or other acute cord syndrome. She is discharged in stable condition after IM Toradol. Impression Primary Impression: Chronic back pain Qualified Codes: M54.50 - Low back pain, unspecified; G89.29 - Other chronic pain Disposition: HOME, SELF-CARE Condition: Stable Departure-Patient Inst. Referrals: NO,LOCAL PHYSICIAN (PCP/Family) Primary Care Physician Patient Instructions: Low Back Pain (DC) Add. Discharge Instructions: Please follow-up with your primary doctor on Wednesday as scheduled to discuss possible referral to a back pain specialist. Return to the emergency department for any weakness of your legs, loss of bowel or bladder control or if your symptoms change in any way concerning to you All discharge instructions reviewed with patient and/or family. Voiced understanding. BEAN ONVOA DO Jun 08, 2023 16:46
[2023-06-08 17:01] VITALS: BP 136/85
== END 2023-06-08 17:01 | disposition home or self-care (01) ==
LOC: EDUNIT# 16:19 → ER 16:24
DX: M54.50 Low back pain, unspecified (principal); G89.29 Other chronic pain
CPT/HCPCS: 96374; 99284

== ENCOUNTER 2023-07-02 01:08 | Emergency (ER) | payer MEDICAID ==
[~2023-07-02] VITALS: Ht 157 cm; Wt 90.7 kg
[2023-07-02] MEDS ORDERED: LACTATED RINGERS 1,000 ML 1,000 ML IV ONE (01:30)
[2023-07-02] MEDS ORDERED: ONDANSETRON INJECTION 4 MG/2 ML (SDV) IVP ONE ×2 (01:30)
--- NOTE | 2023-07-02 01:33 | ED General ---
General Chief Complaint: Abdominal/GI Problems Stated Complaint: ABD PX,NAUSEA,CHILLS Nursing Triage Note: STATES "DOESN'T FEEL GOOD" STATES SCRATCHY THROAT, DIZZY, ABD PAIN, NAUSEA, CHILLS. STATES STARTED YESTERDAY AM. STATES TOOK TYLENOL AROUND 1200. STATES HAS NOT VOMITTED. Source of Information: Patient, Old Records History of Present Illness Date Seen by Provider: Jul 02, 2023 Time Seen by Provider: 01:20 Initial Comments PT ARRIVES VIA POV FROM HOME WITH MALE S.O. KAYLIE PENALOZA PT WITH MULTIPLE COMPLAINTS --STARTED AROUND MIDNIGHT, AND CAME STRAIGHT HERE SOON HER SYMPTOMS BEGAN COMPLAINS OF: -"SCRATCHY THROAT" -DIZZINESS -NASAL CONGESTION -ABDOMINAL PAIN IN RLQ -NAUSEA, NO VOMITING -CHILLS PT HAS NOT TAKEN ANYTHING FOR SYMPTOMS PT WITH PRIOR HYSTERECTOMY/BSO AND CHOLECYSTECTOMY PT HAS HAD A MULTITUDE OF VISITS HERE, MANY AT [facility], WELL VARIOUS OTHER AREA ER'S FOR MULTIPLE CHRONIC COMPLAINTS PT WITH CHRONIC PELVIC PAIN, CHRONIC ABDOMINAL PAIN, CHRONIC BACK PAIN. PCP: DR. MCCORMICK IN [facility] Allergies and Home Medications Allergies Coded Allergies: Antihistamines - Alkylamine (Verified Allergy, Severe, SEIZURES, 07/09/20) aspirin (Verified Allergy, Severe, SEIZURES, pt has rec Ketorolac in the past, 07/15/20) phenobarbital (Verified Allergy, Severe, SEIZURES, 07/09/20) Patient Home Medication List Home Medication List Reviewed: Yes ALPRAZolam (ALPRAZolam) 0.25 Mg Tablet, 0.25 MG PO BID, (Reported) Entered as Reported by: KANDI ALMANZA on 04/21/23 151 Cefdinir (Cefdinir) 300 Mg Capsule, 300 MG PO BID Prescribed by: JUAN ALBERTO CISNEROS on 07/02/23 0519 Cetirizine HCl (Cetirizine HCl) 10 Mg Tablet, 10 MG PO DAILY, (Reported) Entered as Reported by: KANDI ALMANZA on 04/21/23 151 Haloperidol (Haloperidol) 0.5 Mg Tablet, 0.25 MG PO DAILY, (Reported) Entered as Reported by: BRAYDEN STREETER on 07/09/20 1542 Multivitamin (Multivitamin) 1 Each Tablet, 1 EACH PO DAILY, (Reported) Entered as Reported by: BRAYDEN STREETER on 07/09/20 1542 Naproxen (Naproxen) 500 Mg Tablet., 500 MG PO BID Prescribed by: JUAN ALBERTO CISNEROS on 07/02/23518 Ondansetron (Ondansetron Odt) 4 Mg Tab.rapdis, 4 MG PO Q4H Prescribed by: JUAN ALBERTO CISNEROS on 07/02/23518 Pantoprazole Sodium (Protonix) 40 Mg Tablet., 40 MG PO DAILY, (Reported) Entered as Reported by: BRAYDEN STREETER on 07/09/20 154 Review of Systems Review of Systems Constitutional: no symptoms reported EENTM: see HPI Respiratory: no symptoms reported Cardiovascular: no symptoms reported Gastrointestinal: see HPI Genitourinary: no symptoms reported Musculoskeletal: no symptoms reported Skin: no symptoms reported Psychiatric/Neurological: No Symptoms Reported Hematologic/Lymphatic: No Symptoms Reported Immunological/Allergic: no symptoms reported Past Rvhttdg-Gkxwqy-Qjgrty Hx Patient Social History Tobacco Use?: Yes Tobacco type used: Cigarettes Smoking Status: Current Everyday Smoker Substance use?: No Alcohol Use?: No Immunizations Up To Date Influenza Vaccine Up-to-Date: No; Not Current First/Initial COVID19 Vaccinat: 2020 Second COVID19 Vaccination Issac: 2020 Third COVID19 Vaccination Date: 2020 Seasonal Allergies Seasonal Allergies: Yes Past Medical History Surgery/Hospitalization HX: TOURETTE SYNDROME, ANXIETY, HYSTERECTOMY, TUBIAL LIGATION, HERNIA, DEPRESSION Surgeries: Yes (UMBILICAL HERNIA REPAIR; HYST/BSO; JOSH; LAPAROSCOPY/SALVADOR; BTL) Abdominal, Gallbladder, Hysterectomy, Oophorectomy, Tubal Ligation Respiratory: No Cardiac: No Neurological: Yes (LAST SEIZURE AT AGE 1) Seizure Disorder Reproductive Disorders: Yes (CHRONIC PELVIC PAIN AND IRREGULAR AND HEAVY BLEEDING ACCORDING TO PT) Female Reproductive Disorders: Menstrual 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, 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 DUBON: PROCEDURE: Operative laparoscopy with lysis of adhesions Physical Exam Vital Signs Vital Signs - First Documented 07/02/23 01:21 Temp 36.2 Pulse 90 Resp 20 B/P (MAP) 143/104 (117) Pulse Ox 94 O2 Delivery Room Air Capillary Refill : Less Than 3 Seconds Height, Weight, BMI Height: 5'2.00" Weight: 200lbs. oz. 90.469642vc; 36.00 BMI Method:Stated General Appearance: No Apparent Distress, WD/WN, Obese, Other (VERY MALODOROUS; CONSTANT MOVEMENTS OF ENTIRE BODY) HEENT: PERRL/EOMI Neck: Normal Inspection Respiratory: Normal Breath Sounds, No Accessory Muscle Use, No Respiratory Distress Cardiovascular: Regular Rate, Rhythm, No Edema, No JVD, No Murmur, Normal Peripheral Pulses Gastrointestinal: Normal Bowel Sounds, Soft; No Distended, No Guarding, No Mass, No Rebound; Tenderness (RLQ) Back: Normal Inspection, No CVA Tenderness Extremity: Normal Inspection, No Pedal Edema Neurologic/Psychiatric: Alert, Oriented x3, No Motor/Sensory Deficits, 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 Norm as Tested Skin: Normal Color, Warm/Dry, Tattoos/Piercings Progress/Results/Core Measures Suspected Sepsis SIRS Temperature: Pulse: 90 Respiratory Rate: 20 Laboratory Tests 07/02/23 01:23: White Blood Count 11.1H Blood Pressure 143 /104 Mean: 117 Laboratory Tests 07/02/23 01:23: Creatinine 0.82, Platelet Count 362, Total Bilirubin 0.2 Results/Orders Lab Results Laboratory Tests Test 07/02/23 01:23 Range/Units White Blood Count 11.1 H 4.3-11.0 10^3/uL Red Blood Count 4.38 3.80-5.11 10^6/uL Hemoglobin 14.1 11.5-16.0 g/dL Hematocrit 41 35-52 % Mean Corpuscular Volume 94 80-99 fL Mean Corpuscular Hemoglobin 32 25-34 pg Mean Corpuscular Hemoglobin Concent 34 32-36 g/dL Red Cell Distribution Width 12.3 10.0-14.5 % Platelet Count 362 130-400 10^3/uL Mean Platelet Volume 10.3 9.0-12.2 fL Immature Granulocyte % (Auto) 0 % Neutrophils (%) (Auto) 56 42-75 % Lymphocytes (%) (Auto) 33 12-44 % Monocytes (%) (Auto) 7 0-12 % Eosinophils (%) (Auto) 3 0-10 % Basophils (%) (Auto) 1 0-10 % Neutrophils # (Auto) 6.2 1.8-7.8 10^3/uL Lymphocytes # (Auto) 3.6 1.0-4.0 10^3/uL Monocytes # (Auto) 0.8 0.0-1.0 10^3/uL Eosinophils # (Auto) 0.4 H 0.0-0.3 10^3/uL Basophils # (Auto) 0.1 0.0-0.1 10^3/uL Immature Granulocyte # (Auto) 0.0 0.0-0.1 10^3/uL Urine Color YELLOW Urine Clarity CLEAR Urine pH 7.0 5-9 Urine Specific [place] 1.020 1.016-1.022 Urine Protein TRACE H NEGATIVE Urine Glucose (UA) NEGATIVE NEGATIVE Urine Ketones TRACE H NEGATIVE Urine Nitrite NEGATIVE NEGATIVE Urine Bilirubin NEGATIVE NEGATIVE Urine Urobilinogen 1.0 < = 1.0 MG/DL Urine Leukocyte Esterase 1+ H NEGATIVE Urine RBC (Auto) NEGATIVE NEGATIVE Urine RBC 0-2 /HPF Urine WBC 2-5 /HPF Urine Squamous Epithelial Cells 10-25 H /HPF Urine Crystals NONE /LPF Urine Bacteria FEW H /HPF Urine Casts NONE /LPF Urine Mucus MODERATE H /LPF Urine Culture Indicated NO Sodium Level 140 135-145 MMOL/L Potassium Level 3.6 3.6-5.0 MMOL/L Chloride Level 104 98-107 MMOL/L Carbon Dioxide Level 24 21-32 MMOL/L Anion Gap 12 5-14 MMOL/L Blood Urea Nitrogen 14 7-18 MG/DL Creatinine 0.82 0.60-1.30 MG/DL Estimat Glomerular Filtration Rate 93 BUN/Creatinine Ratio 17 Glucose Level 127 H 70-105 MG/DL Calcium Level 9.2 8.5-10.1 MG/DL Corrected Calcium 9.1 8.5-10.1 MG/DL Total Bilirubin 0.2 0.1-1.0 MG/DL Aspartate Amino Transf (AST/SGOT) 12 5-34 U/L Alanine Aminotransferase (ALT/SGPT) 11 0-55 U/L Alkaline Phosphatase 85 40-136 U/L Total Protein 8.2 6.4-8.2 GM/DL Albumin 4.1 3.2-4.5 GM/DL Amylase Level 81 25-125 U/L Lipase 28 8-78 U/L Urine Opiates Screen NEGATIVE NEGATIVE Urine Oxycodone Screen NEGATIVE NEGATIVE Urine Methadone Screen NEGATIVE NEGATIVE Urine Barbiturates Screen NEGATIVE NEGATIVE Ur Tricyclic Antidepressants Screen NEGATIVE NEGATIVE Urine Phencyclidine Screen NEGATIVE NEGATIVE Urine Amphetamines Screen NEGATIVE NEGATIVE Urine Methamphetamines Screen NEGATIVE NEGATIVE Urine Benzodiazepines Screen NEGATIVE NEGATIVE Urine Cocaine Screen NEGATIVE NEGATIVE Urine Cannabinoids Screen NEGATIVE NEGATIVE Monoscreen NEGATIVE NEGATIVE Influenza Type A (RT-PCR) Not Detected Not Detecte Influenza Type B (RT-PCR) Not Detected Not Detecte SARS-CoV-2 RNA (RT-PCR) Not Detected Not Detecte Group A Streptococcus Screen Not Detected NotDetected My Orders Orders - JUAN ALBERTO CISNEROS DO Ed Iv/Invasive Line Start (07/02/23:) Amylase (07/02/23:) Cbc And Automated Diff (07/02/23:) Comprehensive Metabolic Panel (07/02/23:) Drug Screen Stat (Urine) (07/02/23:) Lipase (07/02/23:) Ua Culture If Indicated (07/02/23:) Covid 19 Inhouse Test (07/02/23:24) Ondansetron Injection (Ondansetron Inj (07/02/23:30) Ed Iv/Invasive Line Start (07/02/23:24) Lactated Ringers 1,000 Ml (Lactated Ring (07/02/23:30) Influenza A And B By Pcr (07/02/23:24) Monotest (07/02/23:24) Rapid Strep A Screen (07/02/23:24) Ondansetron Injection (Ondansetron Inj (07/02/23:30) Ct Abdomen/Pelvis W (07/02/23 02:11) Ketorolac Injection (Ketorolac Injection (07/02/23 02:11) Ceftriaxone Iv/Im (Ceftriaxone Iv/Im) (07/02/23 02:11) Iohexol Injection (Omnipaque 350 Mg/Ml 1 (07/02/23 03:30) Received Contrast (Hold Metformin- Contr (07/02/23 03:30) Ns (Ivpb) 100 Ml (Sodium Chloride 0.9% 1 (07/02/23 03:30) Medications Given in ED Current Medications Medications Dose Ordered Sig/Silver Route Start Time Stop Time Status Last Admin Dose Admin Iohexol 100 ml ONCE ONCE IV 07/02/23 03:30 07/02/23 03:33 DC 07/02/23 03:32 80 ML Lactated Ringer's 1,000 ml @ 0 mls/hr Q0M ONCE IV 07/02/23 01:30 07/02/23 01:31 DC 07/02/23 01:32 0 MLS/HR Ondansetron HCl 4 mg ONCE ONCE IVP 07/02/23 01:30 07/02/23 01:31 DC 07/02/23 01:30 4 MG Ondansetron HCl 4 mg ONCE ONCE IVP 07/02/23 01:30 07/02/23 01:31 DC 07/02/23 02:58 4 MG Sodium Chloride 100 ml ONCE ONCE IV 07/02/23 03:30 07/02/23 03:33 DC 07/02/23 03:32 80 ML Vital Signs/I&O 07/02/23 01:21 Temp 36.2 Pulse 90 Resp 20 B/P (MAP) 143/104 (117) Pulse Ox 94 O2 Delivery Room Air Capillary Refill : Less Than 3 Seconds Blood Pressure Mean: 117 Progress Note : Progress Note VITALS ON ARRIVAL: TEMP 36.2=97.2, HR 90, RR 20, BP 143/014, O2 SAT 94% ON ROOM AIR GIVEN: -IV FLUIDS -ZOFRAN -TORADOL -ROCEPHIN LABS: -CBC NORMAL -CMP NORMAL -AMYLASE/LIPASE NORMAL -UA 1+LEUKOCYTES, FEW BACTERIA -UDS NEGATIVE -COVID/FLU NEGATIVE -STREP NEGATIVE -MONO NEGATIVE SYMPTOMS IMPROVED AT DISMISSAL NO VOMITING DURING ER STAY VITALS STABLE REVIEWED PRIOR RECORDS INCLUDING ER VISITS, ADMITS/H&P'S/CONSULTS/DISCHARGE SUMMARIES, TESTS/PROCEDURES DISCUSSED TEST RESULTS,ANTICIPATED COURSE, SYMPTOMATIC TREATMENT, MEDICATIONS, DIET, NEED FOR FOLLOW UP AND RETURN PRECAUTIONS Diagnostic Imaging Comments CT ABDOMEN/PELVIS--PER STAT RAD VIA FAX AT 3651 -NO ACUTE PROCESS Reviewed: Reviewed by Me Departure Impression Primary Impression: Urinary tract infection Additional Impression: Abdominal pain Disposition: HOME, SELF-CARE Condition: Improved Departure-Patient Inst. Decision time for Depature: 05:15 Referrals: RONALDO MCCORMICK MD (PCP/Family) Primary Care Physician Patient Instructions: Urinary Tract Infection, Adult (DC) Add. Discharge Instructions: CLEAR LIQUIDS--WATER, BROTH, JELLO, GATORADE BRATS DIET--BANANAS, RICE, APPLESAUCE, TOAST, SALTINES FOLLOW UP WITH YOUR DR IN 2-3 DAYS IF NO BETTER All discharge instructions reviewed with patient and/or family. Voiced understanding. Scripts Cefdinir (Cefdinir) 300 Mg Capsule 300 MG PO BID, #20 CAP Prov: JUAN ALBERTO CISNEROS DO 07/02/23 Naproxen (Naproxen) 500 Mg Tablet.dr 500 MG PO BID, #20 TAB Prov: JUAN ALBERTO CISNEROS DO 07/02/23 Ondansetron (Ondansetron Odt) 4 Mg Tab.rapdis 4 MG PO Q4H for Nausea/Vomiting, #10 TAB Prov: JUAN ALBERTO CISNEROS DO 07/02/23 JUAN ALBERTO CISNEROS DO Jul 02, 2023 01:33
[2023-07-02 01:41] LABS: BASOPHILS # (AUTO) 0.1 10^3/uL (0.0-0.1); BASOPHILS % (AUTO) 1 % (0-10); EOSINOPHILS # (AUTO) 0.4 10^3/uL (0.0-0.3); EOSINOPHILS % (AUTO) 3 % (0-10); HEMATOCRIT 41 % (35-52); HEMOGLOBIN 14.1 g/dL (11.5-16.0); LYMPHOCYTES # (AUTO) 3.6 10^3/uL (1.0-4.0); LYMPHOCYTES % (AUTO) 33 % (12-44); MEAN CORPUSCULAR HEMOGLOBIN 32 pg (25-34); MEAN CORPUSCULAR HGB CONC 34 g/dL (32-36); MEAN CORPUSCULAR VOLUME 94 fL (80-99); MEAN PLATELET VOLUME 10.3 fL (9.0-12.2); MONOCYTES # (AUTO) 0.8 10^3/uL (0.0-1.0); MONOCYTES % (AUTO) 7 % (0-12); NEUTROPHILS # (AUTO) 6.2 10^3/uL (1.8-7.8); NEUTROPHILS % (AUTO) 56 % (42-75); PLATELET COUNT 362 10^3/uL (130-400); WHITE BLOOD COUNT 11.1 10^3/uL (4.3-11.0)
[2023-07-02 01:50] LABS: BILIRUBIN,URINE NEGATIVE (NEGATIVE); CLARITY,URINE CLEAR; COLOR,URINE YELLOW; GLUCOSE, URINE (UA) NEGATIVE (NEGATIVE); KETONES,URINE TRACE (NEGATIVE); NITRITE,URINE NEGATIVE (NEGATIVE); PROTEIN,URINE TRACE (NEGATIVE)
[2023-07-02 01:51] LABS: BACTERIA,URINE FEW /HPF; LEUKOCYTE ESTERASE ,URINE 1+ (NEGATIVE); RBC,URINE 0-2 /HPF
[2023-07-02 01:54] LABS: AMPHETAMINE SCREEN, URINE NEGATIVE (NEGATIVE); BARBITURATE SCREEN URINE NEGATIVE (NEGATIVE); CANNABINOID SCREEN, URINE NEGATIVE (NEGATIVE); COCAINE SCREEN URINE NEGATIVE (NEGATIVE); METHADONE STAT NEGATIVE (NEGATIVE); OPIATE SCREEN URINE NEGATIVE (NEGATIVE); OXYCODONE STAT NEGATIVE (NEGATIVE); TRICYCLIC ANTIDEPRESSANTS SCRE NEGATIVE (NEGATIVE)
[2023-07-02 01:55] LABS: ALBUMIN 4.1 GM/DL (3.2-4.5)
[2023-07-02 01:56] LABS: POTASSIUM 3.6 MMOL/L (3.6-5.0)
[2023-07-02 01:57] LABS: CALCIUM 9.2 MG/DL (8.5-10.1)
[2023-07-02 01:58] LABS: TOTAL PROTEIN 8.2 GM/DL (6.4-8.2)
[2023-07-02 02:00] LABS: BILIRUBIN,TOTAL 0.2 MG/DL (0.1-1.0)
[2023-07-02 02:02] LABS: CREATININE SERUM 0.82 MG/DL (0.60-1.30)
[2023-07-02] MEDS ORDERED: cefTRIAXone IV/IM 1,000 MG in NS (IVPB) 50 ML 50 ML IV STA (02:11)
[2023-07-02] MEDS ORDERED: KETOROLAC INJ 30 MG/ML VIAL IVP STA (02:11)
[2023-07-02] MEDS ORDERED: HOLD METFORMIN - RECEIVED CONTRAST 20 ML VIAL IV SCH (03:30)
[2023-07-02] MEDS ORDERED: NS 100 ML (IVPB) BAG IV ONE (03:30)
[2023-07-02] MEDS ORDERED: IOHEXOL 350 MG/ML 100 ML (OMNIPAQUE 350) VIAL IV ONE (03:30)
[2023-07-02] MEDS ORDERED: CEFD300C3 PO (05:19)
[2023-07-02] MEDS ORDERED: ONDA4TAB11 PO (05:19)
[2023-07-02] MEDS ORDERED: NAPR500T8 PO (05:19)
[2023-07-02 05:24] VITALS: BP 132/90
--- NOTE | 2023-07-02 06:05 | Diagnostic Imaging Report ---
PROCEDURE: CT abdomen and pelvis with contrast. TECHNIQUE: Multiple contiguous axial images were obtained through the abdomen and pelvis after administration of intravenous contrast. Auto Exposure Controls were utilized during the CT exam to meet ALARA standards for radiation dose reduction. All CT scans use one or more of the following dose optimizing techniques: automated exposure control, MA and/or KvP adjustment based on patient size and exam type or iterative reconstruction. INDICATION: Right lower quadrant pain, nausea, and vomiting. COMPARISON: 04/17/2023 FINDINGS: A 0.4 cm subpleural left lower lobe pulmonary nodule, not significantly changed since prior imaging from 05/12/2021. Mild bibasilar atelectasis. Cholecystectomy. The liver and spleen are unremarkable. The adrenal glands are unremarkable. The pancreas is unremarkable. The kidneys and bilateral ureters are unremarkable. No aneurysmal dilatation of the abdominal aorta. The appendix is unremarkable. The urinary bladder is unremarkable. The uterus is not visualized, likely surgically absent. No abnormal adnexal mass lesion. Mild colonic diverticulosis without CT evidence of diverticulitis. No bowel obstruction or pneumatosis. No significant adenopathy, free air, or free fluid within the abdomen or pelvis. 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 No acute osseous abnormality. IMPRESSION: No acute abnormality with cholecystectomy and hysterectomy noted. Additional findings as above. Agree with preliminary interpretation. Dictated by: Dictated on workstation # [id number]
== END 2023-07-02 05:25 | disposition home or self-care (01) ==
LOC: EDUNIT# 01:08 → ER 01:13
DX: N39.0 Urinary tract infection, site not specified (principal); R10.31 Right lower quadrant pain; E66.9 Obesity, unspecified; F17.210 Nicotine dependence, cigarettes, uncomplicated; Z90.49 Acquired absence of other specified parts of digestive tract; Z68.36 Body mass index [BMI] 36.0-36.9, adult
CPT/HCPCS: 36415; 74177; 80053; 80306; 81000; 82150; 83690; 85025; 86308; 87430; 87636; 96361; 96374; 96375; 96376